=== PATIENT | female | born 1945 | race Caucasian/White ===

== ENCOUNTER 2016-10-10 07:42 | Observation (INO) | payer MEDICARE ==
[~2016-10-10] VITALS: Ht 166.4 cm; Wt 90.3 kg
[~2016-10-10 07:42] MED LIST: AC325T PO; ACDPT PO; ACET-2151 PO; ACET650T52 PO; ANTI1CAP3 PO; APAP PO; ASCO100076 PO; C250T PO; CALC-250 PO; CALC-80 PO; DCS100C PO; DEXL60CA PO; DICL75TA2 PO; DILT300C PO; DOCO300C3 PO; DULO60CA58 PO; DXZS2T PO; FISH1CAP15 PO; GBPN300C PO; GLUC-113 PO; GLUC-96 PO; HAIR SKIN PO; HELIDAC PO; HYDR-3583 PO; HYDR-3714 PO; HYDR1TAB66 PO; HYDROCO PO; LCT30U PO; LEVO125T6 PO; LEVO175T3 PO; LORA-877 PO; LORA1TAB5 PO; LOSA100T7 PO; LSRT50T PO; LVT.025T PO; MECL12.5 PO; MECL25TA56 PO; MELA1TAB11 PO; MOVE FREE ULTRA PO; MULT-608 PO; OMEG-11 PO; OMG1KC PO; OXYM30SP NS; OXYM30SP NSEACH; PNT40TEC PO; POTA20TA7 PO; TORS20TA2 PO; UBID1CAP51 PO; UBID200C PO; VIT100TA2 PO; VIT1TABL57 PO; VITA1TAB30 PO; [UNRECOGNIZED DRUG - CODE]; [UNRECOGNIZED DRUG - CODE] NS; [UNRECOGNIZED DRUG - OTHER] PO
[2016-10-10] MEDS ORDERED: morphine INJ 10 MG/ML 1ML (SYR OR VIAL) IV STA (08:03)
--- NOTE | 2016-10-10 08:03 | ED Chest Pain ---
General Stated Complaint: SOB, CP Source: patient Exam Limitations: no limitations History of Present Illness Time seen by provider: 07:54 Initial Comments Patient brought to the ER by family with complaint of remittent acute chest pain since Tuesday worse on exertion. 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 She has no diaphoresis or nausea and vomiting. She does have a history of hypothyroidism secondary to surgery. She also has high blood pressure which she treats with losartan and torsemide. She states she did take her meds this morning. She also has rheumatoid arthritis for which she uses opiates and NSAIDs however she's not had the NSAIDs for some time because she ran out. No primary family history. She has never had a heart attack. She states she did flunk a stress test with her doctor but because they were more worried about her thyroid she did not have this worked up further and has never had a catheter or seen a crane hoist or lift operator yet. Allergies and Home Medications Allergies Coded Allergies: Penicillins (Verified Allergy, Unknown, 07/05/11) diphenhydramine HCl (Verified Allergy, Unknown, 05/15/14) Home Medications Acetaminophen 650 Mg Tablet.sa, 650 MG PO BID, (Reported) Antiox #11/Om3/Dha/Epa/Lut/Carlos 1 Each Capsule, 1 CAP PO DAILY, (Reported) Ascorbic Acid 1,000 Mg Tablet, 1,000 MG PO DAILY, (Reported) Calcium Carbonate/Vitamin D3 1 Each Tablet, 1 TAB PO DAILY, (Reported) Calcium Carbonate/Vitamin D3 1 Each Tablet, 5,000 UNIT PO UD, (Reported) TAKE ONCE EVERY OTHER WEEK Dexlansoprazole 60 Mg Mulugeta.bp, 60 MG PO DAILY, #30 Prescribed by: TJ YARBROUGH on 02/21/15 1225 Diclofenac Sodium 75 Mg Tablet., 75 MG PO BID, (Reported) Diltiazem Hcl 300 Mg Cap.sr.24h, 300 MG PO HS, (Reported) Docusate Sodium 100 Mg Capsule, 200 MG PO HS, (Reported) TAKES 2 (100MG) CAPSULES Doxazosin Mesylate 2 Mg Tablet, 2 MG PO DAILY, (Reported) Duloxetine HCl 60 Mg Capsule., 60 MG PO DAILY, (Reported) Gabapentin 300 Mg Cap, 600 MG PO TID, (Reported) TAKES 2 (300MG) CAPSULES Hydrocodone Bit/Acetaminophen 1 Tab Tablet, 1 TAB PO Q4H PRN for PAIN, (Reported ) Levothyroxine Sodium 175 Mcg Tablet, 175 MCG PO DAILY, (Reported) Loratadine/Pseudoephedrine 1 Tab.sr .24 H Tab.sr.24h, 1 TAB PO DAILY PRN for CONGESTION, (Reported) Losartan Potassium 100 Mg Tablet, 100 MG PO DAILY, (Reported) Meclizine Hcl 12.5 Mg Tablet, 12.5 MG PO BID, (Reported) Multivitamins 1 Tab Tablet, 1 TAB PO DAILY, (Reported) Oxymetazoline Hcl 15 Ml Harrison, 1 SPRAY NS HS, (Reported) Pantoprazole Sod 40 Mg Tab, 40 MG PO DAILY, (Reported) Potassium Chloride 20 Meq Tab.prt.sr, 20 MEQ PO DAILY, (Reported) Pyridoxine/Melatonin 1 Tab Tablet, 3 MG PO HS, (Reported) Sodium Chloride 59 Ml Mist, 1 SPRAY NA HS, (Reported) Torsemide 20 Mg Tablet, 40 MG PO DAILY, (Reported) TAKES 2 (20MG) TABLETS DAILY Ubidecarenone 200 Mg Capsule, 200 MG PO DAILY, (Reported) [Move Free Ultra] , 1 TAB PO DAILY, (Reported) Review of Systems Constitutional: No chills, No diaphoresis, No fever, malaise EENTM: No Blurred Vision, No Double Vision Respiratory: Denies Cough, SOA With Exertion, SOA at Rest (baseline), Denies Wheezing Cardiovascular: Chest Pain (left pressing ), Denies Edema, Denies Palpitations , Denies Syncope Gastrointestinal: Denies Abdomen Distended, Denies Abdominal Pain Genitourinary: Denies Burning, Denies Discharge Musculoskeletal: back pain (baseline), joint pain (RA) Skin: No pruritus, No rash Past Elhfykj-Lmqtam-Suishh Hx Patient Social History Alcohol Use: Denies Use Recreational Drug Use: No Smoking Status: Never a Smoker Immunizations Up To Date Tetanus Booster (TDap): More than 5yrs Date of Pneumonia Vaccine: Jan 28, 2011 Date of Influenza Vaccine: Feb 27, 2014 Seasonal Allergies Seasonal Allergies: Yes Surgeries HX Surgeries: Yes (COLONOSCOPY) Surgeries: Breast, Gallbladder, Thyroidectomy, Tonsillectomy Respiratory Hx Respiratory Disorders: Yes (WEARS O2 @ NIGHT) Respiratory Disorders: Asthma, Pneumonia, Sleep Apnea Cardiovascular Hx Cardiac Disorders: Yes Cardiac Disorders: High Cholesterol, Hypertension, Irregular Heartbeat Neurological Hx Neurological Disorders: Yes Neurological Disorders: Headaches /Migraines, Neuropathy Reproductive System Hx Reproductive Disorders: No Sexually Transmitted Disease: No HIV/AIDS: No Female Reproductive Disorders: Denies Genitourinary Hx Genitourinary Disorders: Yes (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, R KIDNEY DISEASED ) Gastrointestinal Hx Gastrointestinal Disorders: Yes (H.PYLORI ULCERS) Gastrointestinal Disorders: Gastroesophageal Reflux, Chronic Constipation, Hemorrhoids, Ulcer, Gall Bladder Disease Musculoskeletal Hx Musculoskeletal Disorders: Yes Musculoskeletal Disorders: Degenerate Disk Disease, Arthritis, Rheumatoid Arthritis, Chronic Back Pain Endocrine Hx Endocrine Disorders: Yes (OBESITY) Endocrine Disorders: Hypothyroidsim HEENT HX ENT Disorders: Yes HEENT Disorders: Cataract Loss of Vision: Denies Hearing Impairment: Denies Cancer Hx Cancer: No Psychosocial Hx Psychiatric Problems: No Integumentary HX Skin/Integumentary Disorder: No Blood Transfusions Hx Blood Disorders: Yes (ANEMIA) Adverse Reaction to a Blood Tr: No Family Medical History Family Medial History: Arthritis 19 FATHER G8 SISTER Colon cancer 19 MOTHER Diabetes mellitus 19 MOTHER Gastroenteritis G8 BROTHER Headache disorder 19 FATHER Hypercholesterolemia 19 MOTHER G8 BROTHER G8 SISTER Hypertension 19 MOTHER G8 BROTHER G8 SISTER Myocardial infarction 19 MOTHER G8 BROTHER G8 SISTER Neoplasm 19 FATHER Osteoporosis G8 SISTER No Family History of: AIDS Abdominal aortic aneurysm [place]'s disease Alcoholism Alzheimer's disease Aphasia Asthma Cancer of mouth Cardiovascular disease Cataracts Completed stroke Congenital disease Congenital heart disease Coronary thrombosis Cystic fibrosis Deafness or hearing loss Dementia Drug abuse Dysphasia Fibrocystic disease of breast Glaucoma Infertility Kidney disease Not obtainable due to adoption Parkinson's disease Prostate cancer Psychosocial problem Respiratory disorder Seizure disorder Severe allergy Thyroid disease Tuberculosis Visual disorder Physical Exam Vital Signs Vital Sign - Last 12Hours 10/10/16 07:45 Temp 98.1 Pulse 108 Resp 20 B/P (MAP) 177/127 Pulse Ox 96 O2 Delivery Nasal Cannula O2 Flow Rate 4.0 Capillary Refill : General Appearance: WD/WN, Anxious, Obese HEENT: PERRL/EOMI, Normal ENT Inspection, Pharynx Normal Neck: Full Range of Motion, Normal Inspection, Supple, No JVD Respiratory: Chest Non Tender, Lungs Clear, Normal Breath Sounds, Decreased Breath Sounds (bilateerally) Cardiovascular: Regular Rate, Rhythm, No JVD, No Murmur, Normal Peripheral Pulses, Other (trace edema) Gastrointestinal: Normal Bowel Sounds, Non Tender, Soft Extremity: Normal Capillary Refill, Normal Inspection, No Calf Tenderness Neurologic/Psychiatric: Alert, Oriented x3, No Motor/Sensory Deficits, Normal Mood/Affect Skin: Normal Color, Warm/Dry Lymphatic: No Adenopathy Progress/Results/Core Measures Results/Orders Lab Results Laboratory Tests Test 10/10/16 07:54 Range/Units White Blood Count 11.9 H 4.3-11.0 10^3/uL Red Blood Count 4.34 L 4.35-5.85 10^6/uL Hemoglobin 11.8 11.5-16.0 G/DL Hematocrit 37 35-52 % Mean Corpuscular Volume 86 80-99 FL Mean Corpuscular Hemoglobin 27 25-34 PG Mean Corpuscular Hemoglobin Concent 32 32-36 G/DL Red Cell Distribution Width 14.0 10.0-14.5 % Platelet Count 295 130-400 10^3/uL Mean Platelet Volume 11.1 H 7.4-10.4 FL Neutrophils (%) (Auto) 75 42-75 % Lymphocytes (%) (Auto) 15 12-44 % Monocytes (%) (Auto) 8 0-12 % Eosinophils (%) (Auto) 1 0-10 % Basophils (%) (Auto) 0 0-10 % Neutrophils # (Auto) 8.9 H 1.8-7.8 X 10^3 Lymphocytes # (Auto) 1.8 1.0-4.0 X 10^3 Monocytes # (Auto) 0.9 0.0-1.0 X 10^3 Eosinophils # (Auto) 0.2 0.0-0.3 10^3/uL Basophils # (Auto) 0.1 0.0-0.1 10^3/uL Prothrombin Time 13.9 12.2-14.7 SEC INR Comment 1.1 0.8-1.4 Activated Partial Thromboplast Time 44 H 24-35 SEC Sodium Level 144 135-145 MMOL/L Potassium Level 3.4 L 3.6-5.0 MMOL/L Chloride Level 112 H 98-107 MMOL/L Carbon Dioxide Level 19 L 21-32 MMOL/L Anion Gap 13 5-14 MMOL/L Blood Urea Nitrogen 7 7-18 MG/DL Creatinine 0.69 0.60-1.30 MG/DL Estimat Glomerular Filtration Rate > 60 BUN/Creatinine Ratio 10 Glucose Level 114 H 70-105 MG/DL Calcium Level 9.0 8.5-10.1 MG/DL Magnesium Level 2.0 1.8-2.4 MG/DL Total Bilirubin 0.5 0.1-1.0 MG/DL Aspartate Amino Transf (AST/SGOT) 13 5-34 U/L Alanine Aminotransferase (ALT/SGPT) 10 0-55 U/L Alkaline Phosphatase 60 40-136 U/L Myoglobin 34.7 10.0-92.0 NG/ML Troponin I < 0.30 <0.30 NG/ML B-Type Natriuretic Peptide 467.7 H <100.0 PG/ML Total Protein 6.7 6.4-8.2 G/DL Albumin 3.6 3.2-4.5 G/DL My Orders Orders - CANDY GRANADOS Cbc With Automated Diff (10/10/16 08:03) Magnesium (10/10/16 08:03) Chest 1 View, Ap/Pa Only (10/10/16 08:03) Ekg Tracing (10/10/16 08:03) Cardiac Profile 1 (10/10/16 08:03) Comprehensive Metabolic Panel (10/10/16 08:03) Myoglobin Serum (10/10/16 08:03) Protime With Inr (10/10/16 08:03) Partial Thromboplastin Time (10/10/16 08:03) O2 (10/10/16 08:03) Monitor-Rhythm Ecg Trace Only (10/10/16 08:03) Lipid Panel (10/11/16 06:00) Aspirin Tablet (Aspirin Tablet) (10/10/16 08:15) Rx-Nitroglycerin Sl Tabs (Rx-Nitrostat S (10/10/16 08:15) Morphine Injection (Morphine Injection (10/10/16 08:03) Saline Lock/Iv-Start (10/10/16 08:03) Ondansetron Injection (Zofran Injectio (10/10/16 08:15) BNP (10/10/16 08:24) Morphine Injection (Morphine Injection (10/10/16 09:30) Medications Given in ED Current Medications Medications Dose Ordered Sig/Valery Route Start Time Stop Time Status Last Admin Dose Admin Aspirin 325 mg ONCE ONCE PO 10/10/16 08:15 10/10/16 08:16 DC 10/10/16 08:20 325 MG Nitroglycerin 0.4 mg PRN PRN SL 10/10/16 08:15 10/10/16 08:15 0.4 MG Ondansetron HCl 4 mg ONCE ONCE IVP 10/10/16 08:15 10/10/16 08:16 DC 10/10/16 08:20 4 MG Vital Signs/I&O Vital Sign - Last 12Hours 10/10/16 10/10/16 10/10/16 07:45 07:45 07:50 Temp 98.1 Pulse 108 Resp 20 B/P (MAP) 177/127 Pulse Ox 96 96 O2 Delivery Nasal Cannula Nasal Cannula Nasal Cannula O2 Flow Rate 4.0 4.0 4.00 Progress Note : Time: 08:21 Progress Note Patient presents with acute chest pain concerning for ACS versus less likely PE. She is over 51 and has a heart rate above 100 and pulse ox on room air was about 95% despite her use of oxygen at home. No history of DVTs, hemoptysis or recent surgeries, OCPs. Likely a sedentary lifestyle. Diagnostic Imaging Diagonstic Imaging: Xray Plain Films/CT/US/NM/MRI: chest Comments Underpenetration with few bilateral patchy infiltrates appearance. Cardiac megaly. [place]IA [place], [place] NAME: TABITHA MOROCHO [facility] REC#: [id number] PT STATUS: REG ER : 1945 PHYSICIAN: CANDY GRANADOS MD ADMIT DATE: 10/10/16/ER Draft Date of Exam:10/10/16 CHEST 1 VIEW, AP/PA ONLY EXAMINATION: Chest radiograph, portable AP view. DATE: October 10, 2016 at 08:50 hours. INDICATION: 71-year-old female, chest pain for 3 days. Shortness of breath. COMPARISON: May 15, 2014. FINDINGS: Stable overall appearance of the cardiomediastinal silhouette. There is no identified pneumothorax. There is no large pleural effusion. There are bilateral interstitial and alveolar opacities with areas of alveolar consolidation most notable in the perihilar regions and lung bases. Lung volumes are somewhat low. IMPRESSION: Low lung volumes with bilateral interstitial and alveolar opacities with alveolar opacities in the perihilar regions and lung bases. Pulmonary edema would be included in the differential diagnosis. Dictated on workstation # [id number] Dict: 10/10/16817 Trans: 10/10/16820 [facility] [id number] Interpreted by: ANDERSON MERCHANT MD Electronically signed by: Reviewed: Reviewed by Me Consults Consults : Consulting Physician: Yony ROMERO MD Consults Notes recs echo, lovenox and he will see her. Departure Communication Time/Spoke to Admitting Phy: 09:30 Communication Orrender; Consult Cards and get an Echo. OBS Impression Impression: Primary Impression: Chest pain Qualified Codes: R07.9 - Chest pain, unspecified Disposition: ADMITTED INPATIENT Condition: Stable Decision to Admit Reason: Admit from ER (General) Decision to Admit/Date: October 10, 2016 Time/Decision to Admit Time: 09:39 Departure-Patient Inst. Referrals: SUNIL CHOW MD (PCP) Primary Care Physician Copy Copies To 1: SUNIL CHOW MD, TITUS J October 10, 2016 08:02
[2016-10-10 08:10] LABS: BASOPHILS # (AUTO) 0.1 10^3/uL (0.0-0.1); BASOPHILS % (AUTO) 0 % (0-10); EOSINOPHILS # (AUTO) 0.2 10^3/uL (0.0-0.3); EOSINOPHILS % (AUTO) 1 % (0-10); LYMPHOCYTES # (AUTO) 1.8 X 10^3 (1.0-4.0); LYMPHOCYTES % (AUTO) 15 % (12-44); MEAN CORPUSCULAR HEMOGLOBIN 27 PG (25-34); MEAN CORPUSCULAR HGB CONC 32 G/DL (32-36); MEAN CORPUSCULAR VOLUME 86 FL (80-99); MEAN PLATELET VOLUME 11.1 FL (7.4-10.4); MONOCYTES # (AUTO) 0.9 X 10^3 (0.0-1.0); MONOCYTES % (AUTO) 8 % (0-12); NEUTROPHILS # (AUTO) 8.9 X 10^3 (1.8-7.8); NEUTROPHILS % (AUTO) 75 % (42-75); PLATELET COUNT 295 10^3/uL (130-400); RED BLOOD COUNT 4.34 10^6/uL (4.35-5.85); WHITE BLOOD COUNT 11.9 10^3/uL (4.3-11.0)
[2016-10-10] MEDS ORDERED: ASPIRIN 325 MG (5 GR) TABLET PO ONE (08:15)
[2016-10-10] MEDS ORDERED: ONDANSETRON 4 MG/2 ML (SDV) Z0FRAN IVP ONE (08:15)
[2016-10-10] MEDS ORDERED: RX-NITROGLYCERIN 0.4 MG TAB BTL 25'S SL PRN (08:15)
[2016-10-10 08:18] LABS: INR 1.1 (0.8-1.4); PROTHROMBIN TIME PATIENT 13.9 SEC (12.2-14.7)
--- NOTE | 2016-10-10 08:21 | Diagnostic Imaging Report ---
EXAMINATION: Chest radiograph, portable AP view. DATE: October 10, 2016 at 08:50 hours. INDICATION: 71-year-old female, chest pain for 3 days. Shortness of breath. COMPARISON: May 15, 2014. FINDINGS: Stable overall appearance of the cardiomediastinal silhouette. There is no identified pneumothorax. There is no large pleural effusion. There are bilateral interstitial and alveolar opacities with areas of alveolar consolidation most notable in the perihilar regions and lung bases. Lung volumes are somewhat low. IMPRESSION: Low lung volumes with bilateral interstitial and alveolar opacities with alveolar opacities in the perihilar regions and lung bases. Pulmonary edema would be included in the differential diagnosis. Dictated by: Dictated on workstation # [id number]
[2016-10-10 08:26] LABS: ALANINE AMINOTRANSFERASE 10 U/L (0-55); ALBUMIN 3.6 G/DL (3.2-4.5); ANION GAP 13 MMOL/L (5-14); ASPARTATE AMINO TRANSFERASE 13 U/L (5-34); BILIRUBIN,TOTAL 0.5 MG/DL (0.1-1.0); BLOOD UREA NITROGEN 7 MG/DL (7-18); BUN/CREATININE RATIO 10; CARBON DIOXIDE 19 MMOL/L (21-32); CHLORIDE 112 MMOL/L (98-107); CREATININE SERUM 0.69 MG/DL (0.60-1.30); GFR ESTIMATED > 60; GLUCOSE 114 MG/DL (70-105); POTASSIUM 3.4 MMOL/L (3.6-5.0); SODIUM 144 MMOL/L (135-145); TOTAL PROTEIN 6.7 G/DL (6.4-8.2)
[2016-10-10 08:33] LABS: MYOGLOBIN SERUM 34.7 NG/ML (10.0-92.0)
[2016-10-10] MEDS ORDERED: morphine INJ 4 MG/ML 1 ML (VIAL/SYRINGE) IVP PRN (09:30)
[2016-10-10] MEDS ORDERED: morphine INJ 10 MG/ML 1ML (SYR OR VIAL) IVP ONE (09:45)
[2016-10-10 10:55] VITALS: BP 170/90
[2016-10-10] MEDS: ENOXAPARIN 100 MG/1 ML (LOVENOX) SYR SC SCH ×2 (11:17→22:50)
--- NOTE | 2016-10-10 11:18 | Consultation-Cardiology ---
HPI-Cardiology Cardiology Consultation: Date of Consultation 10/10/16 Date of Admission Attending Physician Carol Bee MD Admitting Physician Carol Bee MD Consulting Physician Yony CHAU MD HPI: Chief Complaint: chest pain this is a 71 year old lady with history of copd on oxygen at home, diabetes but no known cardiac history. she presents with off an on central chest pain x 3 days. no radiation. worse intensity 6/10. associated with worsening of shortness of breath. no exacerbating or relieving factors identified.no chest pain on my interview. Review of Systems-Cardiology Review of Systems Constitutional: No As described under HPI, No no symptoms reported, No chills, No fever, No lightheadedness, No malaise, No tiredness, No weight loss, No weight gain, No other Eyes: No As described under HPI, No no symptoms reported, No blindness, No blurred vision, No contact lenses, No drainage, No decreased acuity, No foreign body sensation, No glasses, No inflammation, No pain, No photophobia, No previous injury, No shadows, No tunnel vision, No other, No vision change Ears/Nose/Throat: No As described under HPI, No no symptoms reported, No chronic hearing loss, No epistaxis, No ear discharge, No ear pain, No loose teeth, No mouth pain, No mouth swelling, No nasal drainage, No nose pain, No recent hearing loss, No throat pain, No throat swelling, No ulcerations, No other Respiratory: shortness of breath Cardiovascular: chest pain Gastrointestinal: No no symptoms reported, No As described under HPI, No abdomen distended, No abdominal pain, No blood streaked bowels, No constipation , No diarrhea, No difficulty swallowing, No nausea, No poor appetite, No poor fluid intake, No rectal bleeding, No vomiting, No other, No nausea/vomiting/ diarrhea, No stool coloration changes Genitourinary: No no symptoms reported, No As described under HPI, No burning, No dysuria, No discharge, No frequency, No flank pain, No hematuria, No incontinence, No pain, No urgency, No other, No urine frequency changes, No urine coloration changes Musculoskeletal: No no symptoms reported, No As describe under HPI, No back pain, No gout, No joint pain, No joint swelling, No muscle pain, No muscle stiffness, No neck pain, No other Skin: No no symptoms reported, No As described under HPI, No change in color, No change in hair/nails, No dryness, No lesions, No lumps, No rash, No other, No skin related problems, No ulcerations, No rash on exposed areas, No ulcerations on exposed areas Psychiatric/Neurological: No As described under HPI, No anxiety, No depression , No emotional problems, No focal weakness, No headache, No no symptoms reported , No numbness, No other, No pre-existing deficit, No seizure, No syncope, No tingling, No tremors, No weakness SWC-Tbjrth-Imtuuj Hx Patient Social History Alcohol Use: Past History Recreational Drug Use: No Smoking Status: Never a Smoker 2nd Hand Smoke Exposure: No Recent Foreign Travel: No Recent Infectious Disease Expo: No Hospitalization with Isolation: Denies Physical Abuse Screen: No Sexual Abuse: No Immunizations Up To Date Tetanus Booster (TDap): More than 5yrs Date of Pneumonia Vaccine: Jan 28, 2011 Date of Influenza Vaccine: Feb 27, 2014 Past Medical History PMH As described under Assessment. Family Medical History Family History: Arthritis 19 FATHER G8 SISTER Colon cancer 19 MOTHER Diabetes mellitus 19 MOTHER Gastroenteritis G8 BROTHER Headache disorder 19 FATHER Hypercholesterolemia 19 MOTHER G8 BROTHER G8 SISTER Hypertension 19 MOTHER G8 BROTHER G8 SISTER Myocardial infarction 19 MOTHER G8 BROTHER G8 SISTER Neoplasm 19 FATHER Osteoporosis G8 SISTER No Family History of: AIDS Abdominal aortic aneurysm Agustin's disease Alcoholism Alzheimer's disease Aphasia Asthma Cancer of mouth Cardiovascular disease Cataracts Completed stroke Congenital disease Congenital heart disease Coronary thrombosis Cystic fibrosis Deafness or hearing loss Dementia Drug abuse Dysphasia Fibrocystic disease of breast Glaucoma Infertility Kidney disease Not obtainable due to adoption Parkinson's disease Prostate cancer Psychosocial problem Respiratory disorder Seizure disorder Severe allergy Thyroid disease Tuberculosis Visual disorder Allergies and Home Medications Allergies Coded Allergies: amoxicillin (Verified Allergy, Mild, 10/10/16) Penicillins (Verified Allergy, Unknown, 07/05/11) diphenhydramine HCl (Verified Allergy, Unknown, 05/15/14) Home Medications Acetaminophen 650 Mg Tablet.sa, 650 MG PO BID, (Reported) Antiox #11/Om3/Dha/Epa/Lut/Carlos 1 Each Capsule, 1 CAP PO DAILY, (Reported) Calcium Carbonate/Vitamin D3 1 Each Tablet, 1 TAB PO DAILY, (Reported) Calcium Carbonate/Vitamin D3 1 Each Tablet, 5,000 UNIT PO UD, (Reported) TAKE ONCE EVERY OTHER WEEK Cyanocobalamin (Vitamin B-12) 1,000 Mcg Tablet, 1,000 MCG IM/IV ONCE, (Reported) Diclofenac Sodium 75 Mg Tablet.dr, 75 MG PO BID, (Reported) Diclofenac Sodium 100 Gm Gel..gram., 100 GM TP for PAIN-MILD, (Reported) Diltiazem Hcl 300 Mg Cap.sr.24h, 300 MG PO HS, (Reported) Doxazosin Mesylate 2 Mg Tablet, 2 MG PO DAILY, (Reported) Duloxetine HCl 60 Mg Capsule.dr, 60 MG PO DAILY, (Reported) Gabapentin 400 Mg Capsule, 400 MG PO TID, (Reported) Hydrocodone Bit/Acetaminophen 1 Tab Tablet, 1 TAB PO Q4H PRN for PAIN, (Reported ) Levothyroxine Sodium 175 Mcg Tablet, 175 MCG PO DAILY, (Reported) Loratadine/Pseudoephedrine 1 Tab.sr .24 H Tab.sr.24h, 1 TAB PO DAILY PRN for CONGESTION, (Reported) Losartan Potassium 100 Mg Tablet, 100 MG PO DAILY, (Reported) Meclizine Hcl 12.5 Mg Tablet, 12.5 MG PO BID, (Reported) Potassium Chloride 20 Meq Tab.prt.sr, 20 MEQ PO DAILY, (Reported) Prasterone (Dhea)/Calcium Carb 1 Each Tablet, 1 EACH PO DAILY, (Reported) Pyridoxine/Melatonin 1 Tab Tablet, 3 MG PO HS, (Reported) Sodium Chloride 59 Ml Mist, 1 SPRAY NA HS, (Reported) Torsemide 20 Mg Tablet, 40 MG PO DAILY, (Reported) TAKES 2 (20MG) TABLETS DAILY Ubidecarenone 200 Mg Capsule, 100 MG PO DAILY, (Reported) [lactulose] , BID, (Reported) Physical Exam-Cardiology Physical Exam Vital Signs/I&O Vital Sign - Last 12Hours 10/10/16 10/10/16 10/10/16 10/10/16 07:45 07:45 07:50 10:11 Temp 98.1 98.1 Pulse 108 80 Resp 20 20 B/P (MAP) 177/127 Pulse Ox 96 96 96 O2 Delivery Nasal Cannula Nasal Cannula Nasal Cannula O2 Flow Rate 4.0 4.0 4.00 4.00 10/10/16 10/10/16 10/10/16 10/10/16 10:17 10:55 12:13 13:38 Temp 95.9 98.7 Pulse 89 76 80 Resp 20 20 B/P (MAP) 170/90 158/90 Pulse Ox 95 95 97 O2 Flow Rate 4.00 5.00 5.00 Capillary Refill : Less Than 3 Seconds Constitutional: No appears stated age, No AAO x 3, No apparent distress, No PERRL, No well-developed, No well-nourished, No other HEENT: No PERRL, No normal ENT inspection, No TMs normal, No pharynx normal, No scleral icterus (R), No scleral icterus (L), No pale conjunctivae (R), No pale conjunctivae (L), No photophobia, No TM abnormal (R), No TM abnormal (L), No pharyngeal erythema, No tonsillar exudate, No other, No discharge, No EOMI, No hearing is well preserved, No hard of hearing, No oral hygience is good, No ulceration, No xanthelasmas are seen Neck: No non-tender, No full range of motion, No supple, No normal inspection, No carotid bruit, No limited range of motion, No lymphadenopathy (R), No lymphadenopathy (L), No tender lateral, No tender midline, No thyromegaly, No other, No carotid pulses are 2 + bilaterally, No with good upstrokes Respiratory: chest expansion is symmetric, chest is bilaterally symmetric, lungs clear to percussion, lungs clear to auscultation Cardiovascular: regular rate-rhythm, S1 and S2 Gastrointestinal: No tender, No soft, No round, No distended, No pulsatile mass , No organomegaly, No guarding, No rebound, No tenderness, No hernia, No mass, No audible bowel sounds, No abnormal bowel sounds, No abdominal bruits, No spleenomegaly, No other Rectal: deferred Extremities: No clubbing, No cyanosis, No significant edema Neurologic/Psychiatric: alert, oriented x 3, power is 5/5 both on sides Skin: No rash, No ulcerations Data Review Labs Laboratory Tests 10/10/16 07:54: White Blood Count 11.9H, Red Blood Count 4.34L, Hemoglobin 11.8, Hematocrit 37, Mean Corpuscular Volume 86, Mean Corpuscular Hemoglobin 27, Mean Corpuscular Hemoglobin Concent 32, Red Cell Distribution Width 14.0, Platelet Count 295, Mean Platelet Volume 11.1H, Neutrophils (%) (Auto) 75, Lymphocytes (%) (Auto) 15 , Monocytes (%) (Auto) 8, Eosinophils (%) (Auto) 1, Basophils (%) (Auto) 0, Neutrophils # (Auto) 8.9H, Lymphocytes # (Auto) 1.8, Monocytes # (Auto) 0.9, Eosinophils # (Auto) 0.2, Basophils # (Auto) 0.1, Prothrombin Time 13.9, INR Comment 1.1, Activated Partial Thromboplast Time 44H, D-Dimer 1.28H, Sodium Level 144, Potassium Level 3.4L, Chloride Level 112H, Carbon Dioxide Level 19L, Anion Gap 13, Blood Urea Nitrogen 7, Creatinine 0.69, Estimat Glomerular Filtration Rate > 60, BUN/Creatinine Ratio 10, Glucose Level 114H, Calcium Level 9.0, Magnesium Level 2.0, Total Bilirubin 0.5, Aspartate Amino Transf (AST /SGOT) 13, Alanine Aminotransferase (ALT/SGPT) 10, Alkaline Phosphatase 60, Myoglobin 34.7, Troponin I < 0.30, B-Type Natriuretic Peptide 467.7H, Total Protein 6.7, Albumin 3.6 10/10/16 12:15: Troponin I < 0.30 ECG Impression ECG Initial ECG Rhythm: Normal Sinus Initial ECG Impression: Nonspecific Changes A/P-Cardiology Assessment/Admission Diagnosis shortness of breath, copd, chest pain, diabetes Plan COPD- defer to primary team. shortness of breath- not in CHF on exam. mild elevation of BNP. could be secondary to copd. request echo. chest pain- serial troponin. ekg does not show any ST-T waves changes. aspirin, enoxaparin. if serial trop negative, will need nuclear stress testing- can be done as outpatient. Thank you for your consultation. Please call me if you have any questions. Anca Chau MD, FACP, FACC, FSCAI, FHRS, CCDS Interventional Cardiology Cardiac Electrophysiology Vascular Medicine and Endovascular Interventions Clinical Quality Measures AMI/AHF: ASA po Prior to arrival: No DVT/VTE Risk/Contraindication: Risk Factor Score Per Nursin RFS Level Per Nursing on Admit: 4+=Very High Yony CHAU MD October 10, 2016 11:18 am
[2016-10-10 12:13] VITALS: BP 158/90
[2016-10-10] MEDS: ASPIRIN E.C. 81 MG (ECOTRIN) TAB PO SCH (12:41)
[2016-10-10] MEDS: LOSARTAN 50 MG (COZAAR) TAB PO SCH (12:55)
[2016-10-10] MEDS ORDERED: CYAN10006 IM/IV (13:28)
[2016-10-10] MEDS ORDERED: DICL100G18 TOP (13:28)
[2016-10-10] MEDS ORDERED: lactulose (13:28)
[2016-10-10] MEDS ORDERED: GABA-490 PO (13:28)
[2016-10-10] MEDS ORDERED: PRAS1TAB2 PO (13:28)
[2016-10-10 16:13] VITALS: BP 134/70
[2016-10-10 19:49] VITALS: BP 165/94
[2016-10-11] VITALS: BP 160/94
[2016-10-11 04:00] VITALS: BP 151/94
[2016-10-11 05:26] LABS: BASOPHILS % (AUTO) 0 % (0-10); EOSINOPHILS # (AUTO) 0.3 10^3/uL (0.0-0.3); EOSINOPHILS % (AUTO) 3 % (0-10); LYMPHOCYTES # (AUTO) 1.6 X 10^3 (1.0-4.0); LYMPHOCYTES % (AUTO) 21 % (12-44); MEAN CORPUSCULAR HEMOGLOBIN 27 PG (25-34); MEAN CORPUSCULAR HGB CONC 31 G/DL (32-36); MEAN CORPUSCULAR VOLUME 87 FL (80-99); MEAN PLATELET VOLUME 11.1 FL (7.4-10.4); MONOCYTES # (AUTO) 0.5 X 10^3 (0.0-1.0); MONOCYTES % (AUTO) 7 % (0-12); NEUTROPHILS % (AUTO) 68 % (42-75); PLATELET COUNT 256 10^3/uL (130-400); RED CELL DISTRIBUTION WIDTH 14.1 % (10.0-14.5); WHITE BLOOD COUNT 7.4 10^3/uL (4.3-11.0)
[2016-10-11 05:48] LABS: CHOLESTEROL 168 MG/DL (< 200); DIRECT LDL 116 MG/DL (1-129); TRIGLYCERIDES 89 MG/DL (<150); VLDL CHOLESTEROL 18 MG/DL (5-40)
--- NOTE | 2016-10-11 07:36 | Cardiology Progress Note ---
Cardiology SOAP Progress Note Subjective: no chest pain Objective: I&O/Vital Signs Vital Sign - Last 12Hours 10/10/16 10/10/16 10/10/16 10/11/16 19:49 21:00 21:28 00:00 Temp 96.7 98.6 Pulse 72 75 Resp 22 24 B/P (MAP) 165/94 160/94 Pulse Ox 96 96 O2 Flow Rate 5.00 5.00 5.00 5.00 10/11/16 10/11/16 01:00 04:00 Temp 97.9 Pulse 71 84 Resp 20 B/P (MAP) 151/94 Pulse Ox 98 O2 Flow Rate 5.00 Intake and Output 10/11/16 00:00 Intake Total 920 ml Output Total 500 ml Balance 420 ml Weight (Pounds): 199 Weight (Ounces): 0.0 Weight (Calculated Kilograms): [id number] Constitutional: No appears stated age, No AAO x 3, No apparent distress, No PERRL, No well-developed, No well-nourished, No other Respiratory: chest expansion is symmetric, chest is bilaterally symmetric, lungs clear to percussion, lungs clear to auscultation Cardiovascular: regular rate-rhythm, S1 and S2 Gastrointestional: No tender, No soft, No round, No distended, No pulsatile mass, No organomegaly, No guarding, No rebound, No tenderness, No hernia, No mass, No audible bowel sounds, No abnormal bowel sounds, No abdominal bruits, No spleenomegaly, No other Extremities: No clubbing, No cyanosis, No significant edema Neurologic/Psychiatric: alert, oriented x 3, power is 5/5 both on sides Skin: No rash, No ulcerations Results/Procedures: Labs Laboratory Tests 10/10/16 07:54: White Blood Count 11.9H, Red Blood Count 4.34L, Hemoglobin 11.8, Hematocrit 37, Mean Corpuscular Volume 86, Mean Corpuscular Hemoglobin 27, Mean Corpuscular Hemoglobin Concent 32, Red Cell Distribution Width 14.0, Platelet Count 295, Mean Platelet Volume 11.1H, Neutrophils (%) (Auto) 75, Lymphocytes (%) (Auto) 15 , Monocytes (%) (Auto) 8, Eosinophils (%) (Auto) 1, Basophils (%) (Auto) 0, Neutrophils # (Auto) 8.9H, Lymphocytes # (Auto) 1.8, Monocytes # (Auto) 0.9, Eosinophils # (Auto) 0.2, Basophils # (Auto) 0.1, Prothrombin Time 13.9, INR Comment 1.1, Activated Partial Thromboplast Time 44H, D-Dimer 1.28H, Sodium Level 144, Potassium Level 3.4L, Chloride Level 112H, Carbon Dioxide Level 19L, Anion Gap 13, Blood Urea Nitrogen 7, Creatinine 0.69, Estimat Glomerular Filtration Rate > 60, BUN/Creatinine Ratio 10, Glucose Level 114H, Calcium Level 9.0, Magnesium Level 2.0, Total Bilirubin 0.5, Aspartate Amino Transf (AST /SGOT) 13, Alanine Aminotransferase (ALT/SGPT) 10, Alkaline Phosphatase 60, Myoglobin 34.7, Troponin I < 0.30, B-Type Natriuretic Peptide 467.7H, Total Protein 6.7, Albumin 3.6 10/10/16 12:15: Troponin I < 0.30 10/10/16 16:05: Troponin I < 0.30 10/11/16 05:10: White Blood Count 7.4, Red Blood Count 3.90L, Hemoglobin 10.6L, Hematocrit 34L, Mean Corpuscular Volume 87, Mean Corpuscular Hemoglobin 27, Mean Corpuscular Hemoglobin Concent 31L, Red Cell Distribution Width 14.1, Platelet Count 256, Mean Platelet Volume 11.1H, Neutrophils (%) (Auto) 68, Lymphocytes (%) (Auto) 21 , Monocytes (%) (Auto) 7, Eosinophils (%) (Auto) 3, Basophils (%) (Auto) 0, Neutrophils # (Auto) 5.0, Lymphocytes # (Auto) 1.6, Monocytes # (Auto) 0.5, Eosinophils # (Auto) 0.3, Basophils # (Auto) 0.0, Troponin I < 0.30, Triglycerides Level 89, Cholesterol Level 168, LDL Cholesterol Direct 116, VLDL Cholesterol 18, HDL Cholesterol 36L A/P: Assessment/Dx: shortness of breath, copd, chest pain, diabetes Plan: COPD- defer to primary team. shortness of breath- not in CHF on exam. mild elevation of BNP. could be secondary to copd. request echo. chest pain- serial troponin. ekg does not show any ST-T waves changes. aspirin, enoxaparin. serial troponin negative -> ACS ruled out. nuclear stress as outpatient. office information provided. Thank you for your consultation. Please call me if you have any questions. Anca Chau MD, FACP, FACC, FSCAI, FHRS, CCDS Interventional Cardiology Cardiac Electrophysiology Vascular Medicine and Endovascular Interventions Clinical Quality Measures AMI/AHF: ASA po Prior to arrival: Yony Milian MD October 11, 2016 7:36 am
[2016-10-11 07:56] VITALS: BP 143/82
[2016-10-11] MEDS ORDERED: DILT300T9 PO (08:24)
[2016-10-11] MEDS ORDERED: DOCU-143 PO (08:53)
[2016-10-11] MEDS ORDERED: PANT40TA3 PO (08:53)
[2016-10-11] MEDS ORDERED: GLUC-203 PO (08:53)
[2016-10-11] MEDS ORDERED: LEVO175T5 PO (08:53)
[2016-10-11] MEDS ORDERED: CNC1KV IJ (08:53)
[2016-10-11] MEDS ORDERED: LEVO150T6 PO (08:53)
[2016-10-11] MEDS ORDERED: UBID100C44 PO (08:53)
[2016-10-11] MEDS ORDERED: MECL-106 PO (08:53)
[2016-10-11] MEDS: LOSARTAN 50 MG (COZAAR) TAB PO SCH (09:16)
[2016-10-11] MEDS: ASPIRIN E.C. 81 MG (ECOTRIN) TAB PO SCH (09:16)
--- NOTE | 2016-10-11 09:21 | Diagnostic Imaging Report ---
INDICATION: Chest pain and dyspnea. DISCUSSION: Single portable upright view of the chest was obtained, comparison 10/10/2016. Cardiomegaly is again noted. Bilateral mixed interstitial and alveolar opacities are likely stable given differences in technique. Findings could be seen with pulmonary edema or atypical infection. No pleural fluid or pneumothorax. No acute osseous abnormality. IMPRESSION: 1. Cardiomegaly with bilateral pulmonary infiltrates, stable. Findings are suggestive of underlying failure. Dictated by: Dictated on workstation # [id number]
--- NOTE | 2016-10-11 09:33 | Short Stay Summary ---
History of Present Illness History of Present Illness Date of Admission October 10, 2016 at 09:47 Date of Discharge Attending Physician Sunil Bee MD Admitting Physician Sunil Bee MD Consult Yony ROMERO MD Allergies and Home Medications Allergies Coded Allergies: amoxicillin (Verified Allergy, Mild, 10/10/16) Penicillins (Verified Allergy, Unknown, 07/05/11) diphenhydramine HCl (Verified Allergy, Unknown, 05/15/14) Home Medications Antiox #11/Om3/Dha/Epa/Lut/Carlos 1 Each Capsule, 1 CAP PO DAILY, (Reported) Calcium Carbonate/Vitamin D3 1 Each Tablet, 1 TAB PO DAILY, (Reported) Cyanocobalamin 1,000 Mcg/Ml Inj, 1,000 MCG IJ MONTHLY, (Reported) Diclofenac Sodium 100 Gm Gel..gram., 4 GM TOP TID PRN for JOINT PAIN, (Reported) Diltiazem HCl 300 Mg Tab.er.24h, 300 MG PO DAILY, (Reported) Docusate Sodium 100 Mg Capsule, 100 MG PO DAILY, (Reported) Doxazosin Mesylate 2 Mg Tablet, 2 MG PO DAILY, (Reported) Duloxetine HCl 60 Mg Capsule.dr, 60 MG PO DAILY, (Reported) Gabapentin 400 Mg Capsule, 400 MG PO TID, (Reported) Glucosam/Chond/Hyalu/Cf Borate 1 Each Tablet, 1 TAB PO DAILY, (Reported) Hydrocodone Bit/Acetaminophen 1 Tab Tablet, 1 TAB PO BID PRN for PAIN-MODERATE, (Reported) Levothyroxine Sodium 175 Mcg Tablet, 175 MCG PO, (Reported) Levothyroxine Sodium 150 Mcg Tablet, 150 MCG PO, (Reported) Loratadine/Pseudoephedrine 1 Tab.sr .24 H Tab.sr.24h, 1 TAB PO DAILY, (Reported) Losartan Potassium 100 Mg Tablet, 100 MG PO DAILY, (Reported) LAST FILLED 05-12-16 #60 Meclizine HCl 25 Mg Tablet, 25 MG PO DAILY, (Reported) Pantoprazole Sodium 40 Mg Tablet.dr, 40 MG PO DAILY, (Reported) Potassium Chloride 20 Meq Tab.prt.sr, 20 MEQ PO DAILY, (Reported) Prasterone (Dhea)/Calcium Carb 1 Each Tablet, 50 MG PO DAILY, (Reported) Pyridoxine/Melatonin 1 Tab Tablet, 3 MG PO HS, (Reported) Sodium Chloride 59 Ml Mist, 1 SPRAY NA HS, (Reported) Torsemide 20 Mg Tablet, 40 MG PO DAILY, (Reported) TAKES 2 (20MG) TABLETS DAILY Ubidecarenone 100 Mg Capsule, 100 MG PO DAILY, (Reported) Past Jqpzcev-Hajjjt-Pldivr Hx Patient Social History Alcohol Use: Past History Recreational Drug Use: No Smoking Status: Never a Smoker 2nd Hand Smoke Exposure: No Physical Abuse Screen: No Sexual Abuse: No Recent Foreign Travel: No Contact w/other who traveled: No Recent Hopitalizations: No Recent Infectious Disease Expo: No Immunizations Up To Date Tetanus Booster (TDap): More than 5yrs Date of Pneumonia Vaccine: Jan 28, 2011 Date of Influenza Vaccine: Feb 27, 2014 Seasonal Allergies Seasonal Allergies: Yes Surgeries HX Surgeries: Yes (COLONOSCOPY) Surgeries: Breast, Gallbladder, Thyroidectomy, Tonsillectomy Respiratory Hx Respiratory Disorders: Yes (WEARS O2 @ NIGHT) Cardiovascular Hx Cardiovascular Disorders: Yes Cardiac Disorders: High Cholesterol, Hypertension, Irregular Heartbeat Neurological Hx Neurological Disorders: Yes Neurological Disorders: Headaches /Migraines, Neuropathy Reproductive System Hx Reproductive Disorders: No Sexually Transmitted Disease: No HIV/AIDS: No Female Reproductive Disorders: Denies Genitourinary Hx Genitourinary Disorders: Yes (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, R KIDNEY DISEASED ) Gastrointestinal Hx Gastrointestinal Disorders: Yes (H.PYLORI ULCERS) Gastrointestinal Disorders: Gastroesophageal Reflux, Chronic Constipation, Hemorrhoids, Ulcer, Gall Bladder Disease Musculoskeletal Hx Musculoskeletal Disorders: Yes Musculoskeletal Disorders: Degenerate Disk Disease, Arthritis, Rheumatoid Arthritis, Chronic Back Pain Endocrine Hx Endocrine Disorders: Yes (OBESITY) Endocrine Disorders: Hypothyroidsim HEENT HX ENT Disorders: Yes HEENT Disorders: Cataract Loss of Vision: Denies Hearing Impairment: Denies Cancer Hx Cancer: No Psychosocial Hx Psychiatric Problems: No Integumentary HX Skin/Integumentary Disorder: No Blood Transfusions Hx Blood Disorders: Yes (ANEMIA) Adverse Reaction to a Blood Tr: No Family Medical History Family Hx: Arthritis 19 FATHER G8 SISTER Colon cancer 19 MOTHER Diabetes mellitus 19 MOTHER Gastroenteritis G8 BROTHER Headache disorder 19 FATHER Hypercholesterolemia 19 MOTHER G8 BROTHER G8 SISTER Hypertension 19 MOTHER G8 BROTHER G8 SISTER Myocardial infarction 19 MOTHER G8 BROTHER G8 SISTER Neoplasm 19 FATHER Osteoporosis G8 SISTER No Family History of: AIDS Abdominal aortic aneurysm Agustin's disease Alcoholism Alzheimer's disease Aphasia Asthma Cancer of mouth Cardiovascular disease Cataracts Completed stroke Congenital disease Congenital heart disease Coronary thrombosis Cystic fibrosis Deafness or hearing loss Dementia Drug abuse Dysphasia Fibrocystic disease of breast Glaucoma Infertility Kidney disease Not obtainable due to adoption Parkinson's disease Prostate cancer Psychosocial problem Respiratory disorder Seizure disorder Severe allergy Thyroid disease Tuberculosis Visual disorder Physical Exam Vital Signs Vital Sign - Last 12Hours 10/10/16 07:45 Temp 98.1 Pulse 108 Resp 20 B/P (MAP) 177/127 Pulse Ox 96 O2 Delivery Nasal Cannula O2 Flow Rate 4.0 Capillary Refill : Less Than 3 Seconds Clinical Quality Measures AMI/AHF: ASA po Prior to arrival: No DVT/VTE Risk/Contraindication: Risk Factor Score Per Nursin RFS Level Per Nursing on Admit: 4+=Very High Short Stay Diagnosis Conclusion Labs Laboratory Tests 10/10/16 12:15: Troponin I < 0.30 10/10/16 16:05: Troponin I < 0.30 10/11/16 05:10: Troponin I < 0.30, White Blood Count 7.4, Red Blood Count 3.90L, Hemoglobin 10.6L, Hematocrit 34L, Mean Corpuscular Volume 87, Mean Corpuscular Hemoglobin 27, Mean Corpuscular Hemoglobin Concent 31L, Red Cell Distribution Width 14.1, Platelet Count 256, Mean Platelet Volume 11.1H, Neutrophils (%) (Auto) 68, Lymphocytes (%) (Auto) 21, Monocytes (%) (Auto) 7, Eosinophils (%) (Auto) 3, Basophils (%) (Auto) 0, Neutrophils # (Auto) 5.0, Lymphocytes # (Auto) 1.6, Monocytes # (Auto) 0.5, Eosinophils # (Auto) 0.3, Basophils # (Auto) 0.0, Triglycerides Level 89, Cholesterol Level 168, LDL Cholesterol Direct 116, VLDL Cholesterol 18, HDL Cholesterol 36L SUNIL BEE MD October 11, 2016 09:33
[2016-10-11] MEDS ORDERED: ASPI-983 PO (09:34)
--- NOTE | 2016-10-11 09:37 | Discharge Inst-Complex ---
[facility] Med Rec & Follow Up Appt. New Medications: Aspirin (Aspirin EC) 81 Mg Tablet.dr 81 MG PO DAILY for 90 Days, #90 TAB Continued Medications: Antiox #11/Om3/Dha/Epa/Lut/Carlos (Ocuvite Adult 50+ Softgel) 1 Each Capsule 1 CAP PO DAILY, CAP Calcium Carbonate/Vitamin D3 (Calcium 600 + D Caplet) 1 Each Tablet 1 TAB PO DAILY, TAB Cyanocobalamin (Cyanocobalamin Injection) 1,000 Mcg/Ml Inj 1000 MCG IJ MONTHLY, VIAL Diclofenac Sodium (Voltaren) 100 Gm Gel..gram. 4 GM TOP TID PRN for JOINT PAIN, TUBE Diltiazem HCl (Diltiazem ER) 300 Mg Tab.er.24h 300 MG PO DAILY, TAB Docusate Sodium (Colace) 100 Mg Capsule 100 MG PO DAILY, CAP Doxazosin Mesylate (Cardura) 2 Mg Tablet 2 MG PO DAILY, TAB Duloxetine HCl (Duloxetine HCl) 60 Mg Capsule.dr 60 MG PO DAILY, CAP Gabapentin (Gabapentin) 400 Mg Capsule 400 MG PO TID, CAP Glucosam/Chond/Hyalu/Cf Borate (Move Free Joint Health Tablet) 1 Each Tablet 1 TAB PO DAILY, TAB Hydrocodone Bit/Acetaminophen (Hydrocodone-Apap 5-325 Tab) 1 Tab Tablet 1 TAB PO BID PRN for PAIN-MODERATE, TAB Levothyroxine Sodium (Levothyroxine Sodium) 175 Mcg Tablet 175 MCG PO, TAB Levothyroxine Sodium (Levothyroxine Sodium) 150 Mcg Tablet 150 MCG PO, TAB Loratadine/Pseudoephedrine (Claritin-D 24 Hour Tab Er) 1 Tab.sr .24 H Tab.sr.24h 1 TAB PO DAILY, TAB Losartan Potassium (Losartan Potassium) 100 Mg Tablet 100 MG PO DAILY, TAB LAST FILLED 05-12-16 #60 Meclizine HCl (Meclizine HCl) 25 Mg Tablet 25 MG PO DAILY, TAB Pantoprazole Sodium (Pantoprazole Sodium) 40 Mg Tablet.dr 40 MG PO DAILY, TAB Potassium Chloride (Klor-Con M20) 20 Meq Tab.prt.sr 20 MEQ PO DAILY, TAB Prasterone (Dhea)/Calcium Carb (Dhea 50 mg Tablet) 1 Each Tablet 50 MG PO DAILY, TAB Pyridoxine/Melatonin (Melatonin 3 Mg Tablet) 1 Tab Tablet 3 MG PO HS, TAB Sodium Chloride (Simply Saline) 59 Ml Mist 1 SPRAY NA HS, EA Torsemide (Torsemide) 20 Mg Tablet 40 MG PO DAILY, TAB TAKES 2 (20MG) TABLETS DAILY Ubidecarenone (Co Q-10) 100 Mg Capsule 100 MG PO DAILY, CAP Prescription: Transmitted to Pharmacy Activity, Diet and PDI Resume Normal Activity: Yes Discharge Diet: Low Fat/Low Cholesterol Drink 6-8 Glasses of Fluid/Day: Yes Symptoms to Reoprt to : Pain Increased, Fever Over 101 Degrees F, Pain/ Pressure in Chest, Pain/Pressure in Jaw, Lightheadedness For Problems or Questions: Contact Your Physician, Go to Emergency Room SUNIL CHOW MD October 11, 2016 09:37
[2016-10-11] MEDS ORDERED: methylPREDNISolone 40 MG/ML (Solu-MEDROL) VIAL IV NR (09:45)
[2016-10-11] MEDS: ENOXAPARIN 100 MG/1 ML (LOVENOX) SYR SC SCH (11:16)
[2016-10-11 12:09] VITALS: BP 159/74
[2016-10-11 12:37] LABS: ALANINE AMINOTRANSFERASE 11 U/L (0-55); ALBUMIN 3.7 G/DL (3.2-4.5); ANION GAP 9 MMOL/L (5-14); ASPARTATE AMINO TRANSFERASE 13 U/L (5-34); BILIRUBIN,TOTAL 0.5 MG/DL (0.1-1.0); BLOOD UREA NITROGEN 10 MG/DL (7-18); BUN/CREATININE RATIO 13; CALCIUM 8.6 MG/DL (8.5-10.1); CARBON DIOXIDE 26 MMOL/L (21-32); CHLORIDE 106 MMOL/L (98-107); CREATININE SERUM 0.75 MG/DL (0.60-1.30); GFR ESTIMATED > 60; GLUCOSE 120 MG/DL (70-105); POTASSIUM 3.3 MMOL/L (3.6-5.0); SODIUM 141 MMOL/L (135-145); TOTAL PROTEIN 6.8 G/DL (6.4-8.2)
--- NOTE | 2016-10-11 13:25 | ECHOCARDIOGRAPHY REPORT ---
DATE OF SERVICE: 10/11/2016 REFERRING PHYSICIANS: Dr. Bee and Dr. Torres. MEASUREMENT: LVID end diastolic 5.8, IVS thickness 1.1, LVPW thickness 1.1, left atrial diameter 4.3, ejection fraction 40%. FINDINGS: 1. Technically difficult study. 2. The left ventricle is normal in size with diffuse left ventricular hypokinesia. Systolic function is reduced. Estimated ejection fraction 40%. 3. The left atrium is mildly dilated. No clot or thrombus were seen within the left atrium. 4. The right atrium and right ventricle are normal in size. No clot or thrombus were seen within the right side. 5. Mitral valve is calcified with mild mitral regurgitation noted by color Doppler flow. No mitral valve prolapse. No mitral valve stenosis. Doppler across the mitral valve showed pseudonormalization suggestive of diastolic dysfunction. 6. Aortic valve is calcified, there is no significant aortic stenosis or regurgitation was seen. 7. Tricuspid valve is normal in morphology with mild tricuspid regurgitation noted by color Doppler flow. Doppler across the tricuspid valve estimated pulmonary artery pressure of 24 plus right atrial pressure. 8. Pulmonic valve is functioning normally. 9. No pericardial effusion. IN CONCLUSION: 1. Technically difficult study. 2. Normal left ventricular size, diffuse left ventricular hypokinesia with estimated ejection fraction 40%, diastolic dysfunction is suggested by Doppler. 3. Mildly dilated left atrium. 4. Mild mitral and tricuspid regurgitation. 5. Aortic valve sclerosis, no aortic stenosis. 6. Estimated pulmonary artery pressure of 30 mmHg. Job ID: [id number] DocumentID: [id number] Dictated Date: 10/11/2016 11:57:35 Personal Lines Account Manager Date: 10/11/2016 12:52:32 Dictated By: ANDREA GONZALEZ MD
== END 2016-10-11 09:34 | disposition home or self-care (01) ==
LOC: EDUNIT# 07:42 → ER 07:43 → 4TH 09:47 → UNDOADMOB 09:47 → 4TH 10:17 → ENPENDDIS 10-11 10:30 → UNDODISOB 10-11 13:57
PROVIDERS: ADMIT Family Medicine; ATTEND Family Medicine
DX: R07.9 Chest pain, unspecified (principal); J44.9 Chronic obstructive pulmonary disease, unspecified; Z99.81 Dependence on supplemental oxygen; E89.0 Postprocedural hypothyroidism; I10 Essential (primary) hypertension; M06.9 Rheumatoid arthritis, unspecified; K21.9 Gastro-esophageal reflux disease without esophagitis
CPT/HCPCS: 36415; 71010; 80053; 80061; 83735; 83874; 83880; 84484; 85025; 85379; 85610; 85730; 93005; 93041; 93306; 96374; 96375; 96376; G0378

== ENCOUNTER 2017-05-12 17:08 | Inpatient (IN) | payer MEDICARE ==
[~2017-05-12] VITALS: Ht 166.4 cm; Wt 72.2 kg
[~2017-05-12 17:08] MED LIST changes: +ASPI-983 PO; +CNC1KV IJ; +CYAN10006 IM/IV; +DICL100G18 TOP; +DILT300T9 PO; +DOCU-143 PO; +GABA-490 PO; +GLUC-203 PO; +LEVO150T6 PO; +LEVO175T5 PO; +MECL-106 PO; +PANT40TA3 PO; +PRAS1TAB2 PO; +UBID100C44 PO; +lactulose
--- OUTSIDE RECORDS SUMMARY | 2017-05-12 17:16 | XMS REPORT | Continuity of Care Document ---
Author Author [facility] Organization [facility] Address Unknown Phone Unavailable Allergies Active Description Code Type Severity Reaction Onset Reported/Identified Relationship to Patient Clinical Status Yes Penicillins [id number] Drug Allergy Unknown N/A 07/05/2011 Yes Benadryl Drug Allergy Severe HIVES 09/12/2012 Yes latex Drug Allergy Severe HIVES 09/12/2012 Yes No Known Food Allergies Food Allergy N/A N/A 09/12/2012 Yes Penicillins Drug Allergy Severe HIVES 09/12/2012 Yes No Known Food Allergies Food Allergy 09/16/2012 Yes diphenhydramine HCl [id number] Drug Allergy Unknown N/A 05/15/2014 Yes amoxicillin [id number] Drug Allergy Mild N/A 10/10/2016 Medications There is no data. Problems Date Dx Coded Attending Type Code Diagnosis Diagnosed By 04/28/1416 KP WILLS DO Ot 266.2 B-COMPLEX DEFIC NEC 04/28/1416 KP WILLS DO Ot 280.9 IRON DEFIC ANEMIA NOS 04/28/1416 KP WILLS DO Ot 285.9 ANEMIA NOS 07/08/2011 Ot 041.86 HELICOBACTER PYLORI [H. PYLORI] 07/08/2011 Ot 244.9 HYPOTHYROIDISM NOS 07/08/2011 Ot 266.2 B-COMPLEX DEFIC NEC 07/08/2011 Ot 268.9 VITAMIN D DEFICIENCY NOS 07/08/2011 Ot 272.4 HYPERLIPIDEMIA NEC/NOS 07/08/2011 Ot 278.01 MORBID OBESITY 07/08/2011 Ot 401.0 MALIGNANT HYPERTENSION 07/08/2011 Ot 416.8 CHR PULMON HEART DIS NEC 07/08/2011 Ot 455.8 HEMRRHOID NOS W COMP NEC 07/08/2011 Ot 493.00 EXTRINSIC ASTHMA, NOS 07/08/2011 Ot 530.11 REFLUX ESOPHAGITIS 07/08/2011 Ot 531.40 CHR STOMACH ULC W HEM 07/08/2011 Ot 535.50 UNSP GASTRITIS GASTRODUODENITIS W/O ME 07/08/2011 Ot 715.89 OSTEOARTHROSIS-MULT SITE 07/08/2011 Ot V58.64 LONG-TERM( CURRENT)USE OF NON-STEROIDAL A 07/08/2011 Ot V85.37 BODY MASS INDEX 37.0-37.9, ADULT 09/13/2012 Fer Calixto MD Final 241.1 NONTOXIC MULTINOD GOITER 09/13/2012 Fer Calixto MD Final 245.2 CHR LYMPHOCYT THYROIDIT 09/13/2012 Fer Calixto MD Final 275.41 HYPOCALCEMIA 09/13/2012 Fer Calixto MD Final 276.8 HYPOPOTASSEMIA 09/13/2012 Fer Calixto MD Final 401.9 HYPERTENSION NOS 09/13/2012 Fer Calixto MD Final 715.90 OSTEOARTHOSIS NOS-NOS 09/13/2012 Fer Calixto MD Final 753.0 RENAL AGENESIS 09/13/2012 Fer Calixto MD 787.20 DYSPHAGIA NOS 09/14/2012 Fer Calixto MD Final 241.1 NONTOXIC MULTINOD GOITER 09/14/2012 Fer Calixto MD Final 245.2 CHR LYMPHOCYT THYROIDIT 09/14/2012 Fer Calixto MD Final 275.41 HYPOCALCEMIA 09/14/2012 Fer Calixto MD Final 276.8 HYPOPOTASSEMIA 09/14/2012 Fer Cailxto MD Final 401.9 HYPERTENSION NOS 09/14/2012 Fer Calixto MD Final 753.0 RENAL AGENESIS 09/14/2012 Fer Calixto MD 787.20 DYSPHAGIA NOS 09/16/2012 Pedro Aleman MD Final 275.41 HYPOCALCEMIA 09/16/2012 Pedro Aleman MD Final 276.8 HYPOPOTASSEMIA 09/16/2012 Pedro Aleman MD Final 401.9 HYPERTENSION NOS 09/16/2012 Pedro Aleman MD Admitting 782.0 SKIN SENSATION DISTURB 09/16/2012 Pedro Aleman MD Final V45.79 ACQ ABSENCE ORGAN NEC 03/09/2013 TJ YARBROUGH MD Ot 455.0 INT HEMORRHOID W/O COMPL 03/09/2013 TJ YARBROUGH MD Ot 455.3 EXT HEMORRHOID W/O COMPL 03/09/2013 TJ YRABROUGH MD Ot 562.10 DIVERTICULOSIS COLON (W/O MENT OF HEMORR 03/09/2013 TJ YARBROUGH MD Ot 564.00 UNSPEC CONSTIPATION 03/09/2013 TJ YARBROUGH MD Ot V16.0 FAMILY HX-GI MALIGNANCY 03/09/2013 TJ YARBROUGH MD Ot V76.51 SCREEN MAL NEOP-COLON 03/29/2013 REFUGIO HOWARD, KYLE Wright Ot 780.4 DIZZINESS AND GIDDINESS 10/15/2013 CARLEEN IZQUIERDO MD Ot 278.00 OBESITY, NOS 10/15/2013 CARLEEN IZQUIERDO MD, Ot 338.4 CHRONIC PAIN SYNDROME 10/15/2013 CARLEEN IZQUIERDO MD, Ot 722.4 CERVICAL DISC DEGEN 10/15/2013 CARLEEN IZQUIERDO MD, Ot 729.1 MYALGIA AND MYOSITIS NOS 10/15/2013 CARLEEN IZQUIERDO MD, Ot V58.69 OTH MED,LT,CURRENT USE 10/15/2013 CARLEEN IZQUIERDO MD Ot V85.39 BODY MASS INDEX 39.0-39.9, ADULT 02/15/2014 CARLEEN IZQUIEROD MD Ot 278.00 OBESITY, NOS 02/15/2014 CARLEEN IZQUIERDO MD Ot 338.4 CHRONIC PAIN SYNDROME 02/15/2014 CARLEEN IZQUIERDO MD Ot 721.3 LUMBOSACRAL SPONDYLOSIS 02/15/2014 CARLEEN IZQUIERDO MD, Ot 722.52 LUMB/LUMBOSAC DISC DEGEN 02/15/2014 CARLEEN IZQUIERDO MD Ot 729.1 MYALGIA AND MYOSITIS NOS 02/15/2014 CARLEEN IZQUIERDO MD, Ot V58.69 OTH MED,LT,CURRENT USE 02/15/2014 CARLEEN IZQUIERDO MD Ot V85.38 BODY MASS INDEX 38.0-38.9, ADULT 03/29/2014 CARLEEN IZQUIERDO MD Ot 278.00 OBESITY, NOS 03/29/2014 CARLEEN IZQUIERDO MD, Ot 338.4 CHRONIC PAIN SYNDROME 03/29/2014 CARLEEN IZQUIERDO MD, Ot 721.3 LUMBOSACRAL SPONDYLOSIS 03/29/2014 CARLEEN IZQUIERDO MD, Ot 722.52 LUMB/LUMBOSAC DISC DEGEN 03/29/2014 CARLEEN IZQUIERDO MD, Ot 729.1 MYALGIA AND MYOSITIS NOS 03/29/2014 CARLEEN IZQUIERDO MD Ot V58.69 OTH MED,LT,CURRENT USE 03/29/2014 CARLEEN IZQUIERDO MD Ot V85.36 BODY MASS INDEX 36.0-36.9, ADULT 04/24/2014 CARLEEN IZQUIERDO MD Ot 722.52 04/24/2014 CARLEEN IZQUIERDO MD Ot 737.30 05/06/2014 CARLEEN IZQUIERDO MD Ot 722.52 05/06/2014 CARLEEN IZQUIERDO MD Ot 737.30 05/17/2014 KP WILLS DO Ot 244.0 POSTSURGICAL HYPOTHYROID 05/17/2014 KP WILLS DO Ot 266.2 B-COMPLEX DEFIC NEC 05/17/2014 KP WILLS DO Ot 272.0 PURE HYPERCHOLESTEROLEM 05/17/2014 KP WILLS DO Ot 278.00 OBESITY, NOS 05/17/2014 KP WILLS DO Ot 280.0 CHR BLOOD LOSS ANEMIA 05/17/2014 KP WILLS DO Ot 327.26 SLEEP RELATED HYPOVENTILATION/HYPOXEMIA 05/17/2014 KP WILLS DO Ot 356.9 IDIO PERIPH NEURPTHY NOS 05/17/2014 KP WILLS DO Ot 401.9 HYPERTENSION NOS 05/17/2014 KP WILLS DO Ot 416.8 CHR PULMON HEART DIS NEC 05/17/2014 KP WILLS DO Ot 493.00 EXTRINSIC ASTHMA, NOS 05/17/2014 KP WILLS DO Ot 530.11 REFLUX ESOPHAGITIS 05/17/2014 KP WILLS DO Ot 530.81 05/17/2014 KP WILLS DO Ot 533.90 PEPTIC ULCER NOS 05/17/2014 KP WILLS DO Ot 535.50 UNSP GASTRITIS GASTRODUODENITIS W/O ME 05/17/2014 KP WILLS DO Ot 553.3 DIAPHRAGMATIC HERNIA 05/17/2014 KP WILLS DO Ot 562.10 DIVERTICULOSIS COLON (W/O MENT OF HEMORR 05/17/2014 KP WILLS DO Ot 715.90 OSTEOARTHROS NOS-UNSPEC 05/17/2014 KP WILLS DO Ot 753.0 RENAL AGENESIS 05/17/2014 KP WILLS DO Vicente Ot V12.09 PERSONAL HISTORY OTH SPEC INFECT JANENE 05/17/2014 KP WILLS DO Vicente Ot V12.79 PERSONAL HISTORY OTH SPEC DIGESTIVE SYST 05/17/2014 WILLSMADI BARNES KP Vicente Ot V58.64 LONG-TERM(CURRENT)USE OF NON-STEROIDAL A 05/17/2014 WILLS KP Vicente Ot V85.37 BODY MASS INDEX 37.0-37.9, ADULT 06/05/2014 JOHANN AMINTA Mira JEWEL BEARING TURNER Ot 244.9 06/05/2014 JOHANN AMINTA Mira JEWEL BEARING TURNER Ot 719.46 06/05/2014 JOHANN AMINTA Mira JEWEL BEARING TURNER Ot 782.3 06/05/2014 JOHANN AMINTA Mira JEWEL BEARING TURNER Ot 786.09 06/24/2014 JOHANN AMINTA Meyers JEWEL BEARING TURNER Ot 244.9 06/24/2014 JOHANN AMINTA Mira JEWEL BEARING TURNER Ot 719.46 06/24/2014 JOHANN AMINTA Mira JEWEL BEARING TURNER Ot 782.3 06/24/2014 JOHANN AMINTA Meyers JEWEL BEARING TURNER Ot 786.09 07/18/2014 JOHANN BARNES KP Vicente Ot 416.8 07/25/2014 KP WILLS DO Ot 416.8 11/13/2014 MATTEO WINTER DO Ot 845.00 SPRAIN OF ANKLE NOS 11/13/2014 MATTEO WINTER DO Ot 847.1 SPRAIN THORACIC REGION 11/13/2014 MATTEO WINTER DO Ot 847.2 SPRAIN LUMBAR REGION 11/13/2014 MATTEO WINTER DO Ot 924.10 CONTUSION OF LOWER LEG 11/13/2014 MATTEO WINTER DO Ot 959.7 LOWER LEG INJURY NOS 11/13/2014 MATTEO WINTER DO Ot E000.8 OTHER EXTERNAL CAUSE STATUS 11/13/2014 MATTEO WINTER DO Ot E849.0 ACCIDENT IN HOME 11/13/2014 MATTEO WINTER DO Ot E880.9 FALL ON STAIR/STEP NEC 12/13/2014 FELECIA HOWARD, CARLEEN Zhang Ot 278.00 OBESITY, NOS 12/13/2014 CARLEEN IZQUIERDO MD Ot 338.4 CHRONIC PAIN SYNDROME 12/13/2014 CARLEEN IZQUIERDO MD Ot 722.52 LUMB/LUMBOSAC DISC DEGEN 12/13/2014 CARLEEN IZQUIERDO MD Ot V58.69 OTH MED,LT,CURRENT USE 12/13/2014 CARLEEN IZQUIERDO MD Ot V85.36 BODY MASS INDEX 36.0-36.9, ADULT 12/26/2014 KP WILLS DO Ot V76.12 01/14/2015 Ot 793.81 01/14/2015 Ot V76.12 01/14/2015 Ot 611.89 01/14/2015 Ot 611.89 01/14/2015 Ot 241.0 01/14/2015 Ot 241.0 01/14/2015 Ot 722.52 01/14/2015 Ot 246.2 01/14/2015 Ot V76.12 01/14/2015 TJ YARBROUGH MD Ot V72.84 01/14/2015 KP WILLS DO Ot 715.96 01/14/2015 KP WILLS DO Ot 722.52 01/14/2015 KP WILLS DO Ot 784.2 01/14/2015 KP WILLS DO Ot V45.89 01/14/2015 KP WILLS DO Ot V76.12 01/14/2015 KP WILLS DO Ot 721.0 01/14/2015 CARLEEN IZQUIERDO MD Ot 278.00 01/14/2015 CARLEEN IZQUIERDO MD Ot 338.4 01/14/2015 CARLEEN IZQUIERDO MD Ot 721.3 01/14/2015 CARLEEN IZQUIERDO MD Ot 722.4 01/14/2015 CARLEEN IZQUIERDO MD Ot 722.52 01/14/2015 CARLEEN IZQUIERDO MD Ot 729.1 01/14/2015 CARLEEN IZQUIERDO MD Ot V58.69 01/14/2015 CARLEEN IZQUIERDO MD Ot V85.38 01/14/2015 CARLEEN IZQUIERDO MD Ot 715.36 01/14/2015 CARLEEN IZQUIERDO MD Ot 721.0 01/14/2015 CARLEEN IZQUIERDO MD Ot 721.3 01/14/2015 CARLEEN IZQUIERDO MD Ot 737.30 01/14/2015 CARLEEN IZQUIERDO MD Ot 722.52 01/14/2015 CARLEEN IZQUIERDO MD Ot 737.30 01/14/2015 JOHANNAMINTA JEWEL BEARING TURNER Ot 244.9 01/14/2015 JOHANNAMINTA JEWEL BEARING TURNER Ot 719.46 01/14/2015 JOHANNAMINTA JEWEL BEARING TURNER Ot 782.3 01/14/2015 JOHANN AMINTA Meyers JEW[employer] BEARING TURNER Ot 786.09 01/14/2015 KP WILLS DO Ot 416.8 01/14/2015 KP WILLS DO Ot V76.12 01/14/2015 KP WILLS DO Ot V76.12 01/21/2015 KP WILLS DO Ot 266.2 B-COMPLEX DEFIC NEC 01/21/2015 KP WILLS DO Ot 280.9 IRON DEFIC ANEMIA NOS 01/21/2015 KP WILLS DO Ot 285.9 ANEMIA NOS 01/21/2015 KP WILLS DO Ot 266.2 01/21/2015 KP WILLS DO Ot 280.9 01/21/2015 KP WILLS DO Ot 285.9 01/21/2015 KP WILLS DO Ot 266.2 01/21/2015 KP WILLS DO Ot 280.9 01/21/2015 KP WILLS DO Ot 285.9 01/21/2015 KP WILLS DO Ot 266.2 01/21/2015 KP WILLS DO Ot 280.9 01/21/2015 KP WILLS DO Ot 285.9 02/05/2015 CARLEEN IZQUIERDO MD Ot 719.45 02/13/2015 CARLEEN IZQUIERDO MD Ot 719.45 02/13/2015 KP WILLS DO Ot 285.9 ANEMIA NOS 02/21/2015 TJ YARBROUGH MD Ot 211.3 BENIGN NEOPLASM LG BOWEL 02/21/2015 TJ YARBROUGH MD Ot 285.9 ANEMIA NOS 02/21/2015 TJ YARBROUGH MD Ot 455.0 INT HEMORRHOID W/O COMPL 02/21/2015 TJ YARBROUGH MD Ot 455.3 EXT HEMORRHOID W/O COMPL 02/21/2015 TJ YARBROUGH MD Ot 530.11 REFLUX ESOPHAGITIS 02/21/2015 TJ YARBROUGH MD Ot 535.50 UNSP GASTRITIS GASTRODUODENITIS W/O ME 02/21/2015 TJ YARBROUGH MD Ot 553.3 DIAPHRAGMATIC HERNIA 06/20/2015 Ot 793.81 06/20/2015 Ot V76.12 06/20/2015 Ot 611.89 06/20/2015 Ot 611.89 06/20/2015 Ot 241.0 06/20/2015 Ot 241.0 06/20/2015 Ot 722.52 06/20/2015 Ot 246.2 06/20/2015 Ot V76.12 06/20/2015 TJ YARBROUGH MD Ot V72.84 06/20/2015 KP WILLS DO Ot 715.96 06/20/2015 KP WILLS DO Ot 722.52 06/20/2015 KP WILLS DO Ot 784.2 06/20/2015 KP WILLS DO Ot V45.89 06/20/2015 KP WILLS DO Ot V76.12 06/20/2015 KP WILLS DO Ot 721.0 06/20/2015 CARLEEN IZQUIERDO MD Ot 278.00 06/20/2015 CARLEEN IZQUIERDO MD Ot 338.4 06/20/2015 CARLEEN IZQUIERDO MD Ot 721.3 06/20/2015 CARLEEN IZQUIERDO MD Ot 722.4 06/20/2015 CARLEEN IZQUIERDO MD Ot 722.52 06/20/2015 CARLEEN IZQUIERDO MD Ot 729.1 06/20/2015 CARLEEN IZQUIERDO MD Ot V58.69 06/20/2015 CARLEEN IZQUIERDO MD Ot V85.38 06/20/2015 CARLEEN IZQUIERDO MD Ot 715.36 06/20/2015 CARLEEN IZQUIERDO MD Ot 721.0 06/20/2015 CARLEEN IZQUIERDO MD Ot 721.3 06/20/2015 CARLEEN IZQUIERDO MD Ot 737.30 06/20/2015 CARLEEN IZQUIERDO MD Ot 722.52 06/20/2015 CARLEEN IZQUIERDO MD Ot 737.30 06/20/2015 AMINTA WILLSP Ot 244.9 06/20/2015 AMINTA WILLSP Ot 719.46 06/20/2015 AMINTA WILLS JEW[employer]ARING TURNER Ot 782.3 06/20/2015 WILLSAMINTA LAZO JEW[employer]ARING TURNER Ot 786.09 06/20/2015 JOHANN BARNES KP Zhang Ot 416.8 06/20/2015 JOHANN BARNES KP Zhang Ot V76.12 06/20/2015 CARLEEN IZQUIERDO MD Ot 719.45 06/20/2015 ZENON HOWARD, [facility] Ot V72.84 06/20/2015 CARLEEN IZQUIERDO MD Ot M17.0 BILATERAL PRIMARY OSTEOARTHRITIS OF KNEE 06/20/2015 CARLEEN IZQUIERDO MD Ot M48.06 SPINAL STENOSIS, LUMBAR REGION 06/20/2015 CARLEEN IZQUIERDO MD Ot M51.16 INTERVERTEBRAL DISC DISORDERS W RADICULO 06/20/2015 CARLEEN IZQUIERDO MD Ot Z79.899 OTHER SHEARING MACHINE OPERATOR (CURRENT) DRUG THERAPY 09/03/2015 Ot M62.81 09/03/2015 Ot R26.9 09/03/2015 Ot R29.6 09/03/2015 Ot R41.3 09/03/2015 Ot M62.81 09/03/2015 Ot R26.9 09/03/2015 Ot R29.6 09/03/2015 Ot R41.3 09/19/2015 SUNIL CHOW MD Ot G47.33 OBSTRUCTIVE SLEEP APNEA (ADULT) (PEDIATR 09/23/2015 Ot M62.81 MUSCLE WEAKNESS (GENERALIZED) 09/23/2015 Ot R26.9 UNSPECIFIED ABNORMALITIES OF GAIT AND MO 09/23/2015 Ot R29.6 REPEATED FALLS 09/23/2015 Ot R41.3 OTHER AMNESIA 09/25/2015 SUNIL CHOW MD Ot G47.33 OBSTRUCTIVE SLEEP APNEA (ADULT) (PEDIATR 09/27/2015 SUNIL CHOW MD Ot G47.33 OBSTRUCTIVE SLEEP APNEA (ADULT) (PEDIATR 10/01/2015 Ot M62.81 MUSCLE WEAKNESS (GENERALIZED) 10/01/2015 Ot R26.9 UNSPECIFIED ABNORMALITIES OF GAIT AND MO 10/01/2015 Ot R29.6 REPEATED FALLS 10/01/2015 Ot R41.3 OTHER AMNESIA 12/09/2015 SHAWNA NORMAN Ot G47.33 OBSTRUCTIVE SLEEP APNEA (ADULT) (PEDIATR 12/17/2015 SHAWNA NORMAN Ot G47.33 OBSTRUCTIVE SLEEP APNEA (ADULT) (PEDIATR 12/19/2015 SHAWNA NORMAN Ot G47.33 OBSTRUCTIVE SLEEP APNEA (ADULT) (PEDIATR 01/09/2016 CAITIE HOWARD, PEDRO Hewitt Ot J39.2 OTHER DISEASES OF PHARYNX 01/12/2016 PEDRO BLOOD MD Ot J39.2 OTHER DISEASES OF PHARYNX 01/30/2016 PEDRO BLOOD MD Ot J39.2 OTHER DISEASES OF PHARYNX 02/05/2016 PEDRO BLOOD MD Ot J39.2 OTHER DISEASES OF PHARYNX 10/10/2016 Ot 722.52 LUMB/ LUMBOSAC DISC DEGEN 10/10/2016 Ot 246.2 CYST OF THYROID 10/10/2016 Ot V76.12 OTH SCREEN MAMMO-MALIGN NEOPLASM OF RHODA 10/10/2016 ZENON HOWARD, TJ Ot V72.84 EXAM PRE-OPERATIVE NOS 10/10/2016 KP WILLS DO Ot 715.96 OSTEOARTHROS NOS-L/LEG 10/10/2016 KP WILLS DO Ot 722.52 LUMB/LUMBOSAC DISC DEGEN 10/10/2016 KP WILLS DO Ot 784.2 SWELLING IN HEAD NECK 10/10/2016 KP WILLS DO Ot V45.89 POSTSURGICAL STATES NEC 10/10/2016 KP WILLS DO Ot V76.12 OT SCREEN MAMMO-MALIGN NEOPLASM OF RHODA 10/10/2016 KP WILLS DO Ot 721.0 CERVICAL SPONDYLOSIS 10/10/2016 CARLEEN IZQUIERDO MD Ot 278.00 OBESITY, NOS 10/10/2016 CARLEEN IZQUIERDO MD Ot 338.4 CHRONIC PAIN SYNDROME 10/10/2016 CARLEEN IZQUIERDO MD Ot 721.3 LUMBOSACRAL SPONDYLOSIS 10/10/2016 CARLEEN IZQUIERDO MD Ot 722.4 CERVICAL DISC DEGEN 10/10/2016 CARLEEN IZQUIERDO MD Ot 722.52 LUMB/LUMBOSAC DISC DEGEN 10/10/2016 CARLEEN IZQUIERDO MD Ot 729.1 MYALGIA AND MYOSITIS NOS 10/10/2016 CARLEEN IZQUIERDO MD Ot V58.69 OT MED,LT,CURRENT USE 10/10/2016 CARLEEN IZQUIERDO MD Ot V85.38 BODY MASS INDEX 38.0-38.9, ADULT 10/10/2016 CARLEEN IZQUIERDO MD Ot 715.36 LOC OSTEOARTH NOS-L/LEG 10/10/2016 CARLEEN IZQUIERDO MD Ot 721.0 CERVICAL SPONDYLOSIS 10/10/2016 CARLEEN IZQUIERDO MD Ot 721.3 LUMBOSACRAL SPONDYLOSIS 10/10/2016 CARLEEN IZQUIERDO MD Ot 737.30 IDIOPATHIC SCOLIOSIS 10/10/2016 CARLEEN IZQUIERDO MD Ot 722.52 LUMB/LUMBOSAC DISC DEGEN 10/10/2016 CARLEEN IZQUIERDO MD Ot 737.30 IDIOPATHIC SCOLIOSIS 10/10/2016 AMINTA WILLS JEW[employer]ARING TURNER Ot 244.9 HYPOTHYROIDISM NOS 10/10/2016 AMINTA WILLS JEWEL BEARING TURNER Ot 719.46 JOINT PAIN-L/LEG 10/10/2016 AMINTA WLILS JEWEL BEARING TURNER Ot 782.3 EDEMA 10/10/2016 AMINTA WILLS JEWEL BEARING TURNER Ot 786.09 RESPIRATORY ABNORM NEC 10/10/2016 KP WILLS DO Ot 416.8 CHR PULMON HEART DIS NEC 10/10/2016 KP WILLS DO Ot V76.12 OTH SCREEN MAMMO-MALIGN NEOPLASM OF RHODA 10/10/2016 CARLEEN IZQUIERDO MD Ot 719.45 JOINT PAIN-PELVIS 10/10/2016 JT YARBROUGH MD Ot V72.84 EXAM PRE-OPERATIVE NOS 10/10/2016 Ot M62.81 MUSCLE WEAKNESS (GENERALIZED) 10/10/2016 Ot R26.9 UNSPECIFIED ABNORMALITIES OF GAIT AND MO 10/10/2016 Ot R29.6 REPEATED FALLS 10/10/2016 Ot R41.3 OTHER AMNESIA 10/10/2016 CAITIE HOWARD, PEDRO Hewitt Ot J39.2 OTHER DISEASES OF PHARYNX 10/10/2016 Ot 722.52 LUMB/ LUMBOSAC DISC DEGEN 10/10/2016 Ot 246.2 CYST OF THYROID 10/10/2016 Ot V76.12 OTH SCREEN MAMMO-MALIGN NEOPLASM OF [place]OD[place] 10/10/2016 TJ YARBROUGH MD Ot V72.84 EXAM PRE-OPERATIVE NOS 10/10/2016 KP WILLS DO Ot 715.96 OSTEOARTHROS NOS-L/LEG 10/10/2016 KP WILLS DO Ot 722.52 LUMB/LUMBOSAC DISC DEGEN 10/10/2016 KP WILLS DO Ot 784.2 SWELLING IN HEAD NECK 10/10/2016 KP WILLS DO Ot V45.89 POSTSURGICAL STATES NEC 10/10/2016 KP WILLS DO Ot V76.12 OTH SCREEN MAMMO-MALIGN NEOPLASM OF RHOD[place] 10/10/2016 KP WILLS DO Ot 721.0 CERVICAL SPONDYLOSIS 10/10/2016 CARLEEN IZQUIERDO MD Ot 278.00 OBESITY, NOS 10/10/2016 CARLEEN IZQUIERDO MD Ot 338.4 CHRONIC PAIN SYNDROME 10/10/2016 CARLEEN IZQUIERDO MD Ot 721.3 LUMBOSACRAL SPONDYLOSIS 10/10/2016 CARLEEN IZQUIERDO MD Ot 722.4 CERVICAL DISC DEGEN 10/10/2016 CARLEEN IZQUIERDO MD Ot 722.52 LUMB/LUMBOSAC DISC DEGEN 10/10/2016 CARLEEN IZQUIERDO MD Ot 729.1 MYALGIA AND MYOSITIS NOS 10/10/2016 CARLEEN IZQUIERDO MD Ot V58.69 OTH MED,LT,CURRENT USE 10/10/2016 CARLEEN IZQUIERDO MD Ot V85.38 BODY MASS INDEX 38.0-38.9, ADULT 10/10/2016 CARLEEN IZQUIERDO MD Ot 715.36 LOC OSTEOARTH NOS-L/LEG 10/10/2016 CARLEEN IZQUIERDO MD Ot 721.0 CERVICAL SPONDYLOSIS 10/10/2016 CARLEEN IZQUIERDO MD Ot 721.3 LUMBOSACRAL SPONDYLOSIS 10/10/2016 CARLEEN IZQUIERDO MD Ot 737.30 IDIOPATHIC SCOLIOSIS 10/10/2016 CARLEEN IZQUIERDO MD Ot 722.52 LUMB/LUMBOSAC DISC DEGEN 10/10/2016 CARLEEN IZQUIERDO MD Ot 737.30 IDIOPATHIC SCOLIOSIS 10/10/2016 AMINTA WILLS JEW[employer]ARING TURNER Ot 244.9 HYPOTHYROIDISM NOS 10/10/2016 AMINTA WILLSP Ot 719.46 JOINT PAIN-L/LEG 10/10/2016 AMINTA WILLS JEW[employer]ARING TURNER Ot 782.3 EDEMA 10/10/2016 AMINTA WILLSP Ot 786.09 RESPIRATORY ABNORM NEC 10/10/2016 KP WILLS DO Ot 416.8 CHR PULMON HEART DIS NEC 10/10/2016 KP WILLS DO Ot V76.12 OTH SCREEN MAMMO-MALIGN NEOPLASM OF RHOD[place] 10/10/2016 CARLEEN IZQUIERDO MD Ot 719.45 JOINT PAIN-PELVIS 10/10/2016 TJ YARBROUGH MD Ot V72.84 EXAM PRE-OPERATIVE NOS 10/10/2016 Ot M62.81 MUSCLE WEAKNESS (GENERALIZED) 10/10/2016 Ot R26.9 UNSPECIFIED ABNORMALITIES OF GAIT AND MO 10/10/2016 Ot R29.6 REPEATED FALLS 10/10/2016 Ot R41.3 OTHER AMNESIA 10/10/2016 CAITIE HOWARD, PEDRO Hewitt Ot J39.2 OTHER DISEASES OF PHARYNX 10/11/2016 GERALDO HOWARD, SUNIL Moore Ot E89.0 POSTPROCEDURAL HYPOTHYROIDISM 10/11/2016 GERALDO HOWARD, SUNIL Moore Ot I10 ESSENTIAL (PRIMARY) HYPERTENSION 10/11/2016 SUNIL CHOW MD Ot J44.9 CHRONIC OBSTRUCTIVE PULMONARY DISEASE, U 10/11/2016 SUNIL CHOW MD Ot K21.9 GASTRO-ESOPHAGEAL REFLUX DISEASE WITHOUT 10/11/2016 SUNIL CHOW MD Ot M06.9 RHEUMATOID ARTHRITIS, UNSPECIFIED 10/11/2016 SUNIL CHOW MD Ot R07.9 CHEST PAIN, UNSPECIFIED 10/11/2016 GERALDO HOWARD, SUNIL Moore Ot Z99.81 DEPENDENCE ON SUPPLEMENTAL OXYGEN 01/17/2017 Ot 722.52 LUMB/ LUMBOSAC DISC DEGEN 01/17/2017 Ot 246.2 CYST OF THYROID 01/17/2017 Ot V76.12 OTH SCREEN MAMMO-MALIGN NEOPLASM OF RHOD[place] 01/17/2017 TJ YARBROUGH MD Ot V72.84 EXAM PRE-OPERATIVE NOS 01/17/2017 KP WILLS DO Ot 715.96 OSTEOARTHROS NOS-L/LEG 01/17/2017 KP WILLS DO Ot 722.52 LUMB/LUMBOSAC DISC DEGEN 01/17/2017 KP WILLS DO Ot 784.2 SWELLING IN HEAD NECK 01/17/2017 KP WILLS DO Ot V45.89 POSTSURGICAL STATES NEC 01/17/2017 KP WILLS DO Ot V76.12 OTH SCREEN MAMMO-MALIGN NEOPLASM OF [place] 01/17/2017 KP WILLS DO Ot 721.0 CERVICAL SPONDYLOSIS 01/17/2017 CARLEEN IZQUIERDO MD Ot 278.00 OBESITY, NOS 01/17/2017 CARLEEN IZQUIERDO MD Ot 338.4 CHRONIC PAIN SYNDROME 01/17/2017 CARLEEN IZQUIERDO MD Ot 721.3 LUMBOSACRAL SPONDYLOSIS 01/17/2017 CARLEEN IZQUIERDO MD Ot 722.4 CERVICAL DISC DEGEN 01/17/2017 CARLEEN IZQUIERDO MD Ot 722.52 LUMB/LUMBOSAC DISC DEGEN 01/17/2017 CARLEEN IZQUIERDO MD Ot 729.1 MYALGIA AND MYOSITIS NOS 01/17/2017 CARLEEN IZQUIERDO MD Ot V58.69 OTH MED,LT,CURRENT USE 01/17/2017 CARLEEN IZQUIERDO MD Ot V85.38 BODY MASS INDEX 38.0-38.9, ADULT 01/17/2017 CARLEEN IZQUIERDO MD Ot 715.36 LOC OSTEOARTH NOS-L/LEG 01/17/2017 CARLEEN IZQUIERDO MD Ot 721.0 CERVICAL SPONDYLOSIS 01/17/2017 CARLEEN IZQUIERDO MD Ot 721.3 LUMBOSACRAL SPONDYLOSIS 01/17/2017 CARLEEN IZQUIERDO MD Ot 737.30 IDIOPATHIC SCOLIOSIS 01/17/2017 CARLEEN IZQUIERDO MD Ot 722.52 LUMB/LUMBOSAC DISC DEGEN 01/17/2017 CARLEEN IZQUIERDO MD Ot 737.30 IDIOPATHIC SCOLIOSIS 01/17/2017 AMINTA WILLS JEW[employer]URNER Ot 244.9 HYPOTHYROIDISM NOS 01/17/2017 AMINTA WILLS JEWEL [employer]ARING TURNER Ot 719.46 JOINT PAIN-L/LEG 01/17/2017 AMINTA WILLS JEWEL [employer]ARING TURNER Ot 782.3 EDEMA 01/17/2017 AMINTA WILLS JEWEL [employer]ARING TURNER Ot 786.09 RESPIRATORY ABNORM NEC 01/17/2017 KP WILLS DO Ot 416.8 CHR PULMON HEART DIS NEC 01/17/2017 KP WILLS DO Ot V76.12 OTH SCREEN MAMMO-MALIGN NEOPLASM OF RHODA 01/17/2017 CARLEEN IZQUIERDO MD Ot 719.45 JOINT PAIN-PELVIS 01/17/2017 ZENON HOWARD, [place] Ot V72.84 EXAM PRE-OPERATIVE NOS 01/17/2017 Ot M62.81 MUSCLE WEAKNESS (GENERALIZED) 01/17/2017 Ot R26.9 UNSPECIFIED ABNORMALITIES OF GAIT AND MO 01/17/2017 Ot R29.6 REPEATED FALLS 01/17/2017 Ot R41.3 OTHER AMNESIA 01/17/2017 CAITIE HOWARD, PEDRO Hewitt Ot J39.2 OTHER DISEASES OF PHARYNX Procedures Code Description Performed By Performed On 45.16 ESOPHAGOGASTRODUODENOSCOPY [ EGD] W/CLOSE 07/06/2011 06.4 COMPLETE THYROIDECTOMY Fer Calixto MD 09/13/2012 37705 REMOVAL OF THYROID Fer Calixto MD 09/13/2012 45.16 ESOPHAGOGASTRODUODENOSCOPY [ EGD] W/CLOSE 05/17/2014 Results Test Result Range [id number] - 01/08/16 14:35 Serum or plasma urea nitrogen measurement (mass/volume) 12 mg/dL 7-18 Serum or plasma creatinine measurement (mass/volume) 0.91 mg/dL 0.60-1.30 Serum or plasma urea nitrogen/creatinine mass ratio 13 NRG Serum or plasma creatinine measurement with calculation of estimated glomerular filtration rate > NRG Complete blood count (CBC) with automated white blood cell (WBC) differential - 10/10/16 07:54 Blood leukocytes automated count (number/volume) 11.9 10*3/uL 4.3-11.0 Blood erythrocytes automated count (number/volume) 4.34 10*6/uL 4.35-5.85 Venous blood hemoglobin measurement (mass/volume) 11.8 g/dL 11.5-16.0 Blood hematocrit (volume fraction) 37 % 35-52 Automated erythrocyte mean corpuscular volume 86 [foz_us] 80-99 Automated erythrocyte mean corpuscular hemoglobin (mass per erythrocyte) 27 pg 25-34 Automated erythrocyte mean corpuscular hemoglobin concentration measurement ( mass/volume) 32 g/dL 32-36 Automated erythrocyte distribution width ratio 14.0 % 10.0-14.5 Automated blood platelet count (count/volume) 295 10*3/uL 130-400 Automated blood platelet mean volume measurement 11.1 [foz_us] 7.4-10.4 Automated blood neutrophils/100 leukocytes 75 % 42-75 Automated blood lymphocytes/100 leukocytes 15 % 12-44 Blood monocytes/100 leukocytes 8 % 0-12 Automated blood eosinophils/100 leukocytes 1 % 0-10 Automated blood basophils/100 leukocytes 0 % 0-10 Blood neutrophils automated count (number/volume) 8.9 10*3 1.8-7.8 Blood lymphocytes automated count (number/volume) 1.8 10*3 1.0-4.0 Blood monocytes automated count (number/volume) 0.9 10*3 0.0-1.0 Automated eosinophil count 0.2 10*3/uL 0.0-0.3 Automated blood basophil count (count/volume) 0.1 10*3/uL 0.0-0.1 PT panel in platelet poor plasma by coagulation assay - 10/10/16 07:54 Prothrombin time (PT) in platelet poor plasma by coagulation assay 13.9 s 12.2-14.7 INR in platelet poor plasma or blood by coagulation assay 1.1 0.8-1.4 Activated partial thromboplastin time (aPTT) in platelet poor plasma bycoagulation assay - 10/10/16 07:54 Activated partial thromboplastin time (aPTT) in platelet poor plasma bycoagulation assay 44 s 24-35 Comprehensive metabolic panel - 10/10/16 07:54 Serum or plasma sodium measurement (moles/volume) 144 mmol/L 135-145 Serum or plasma potassium measurement (moles/volume) 3.4 mmol/L 3.6-5.0 Serum or plasma chloride measurement (moles/volume) 112 mmol/L 98-107 Carbon dioxide 19 mmol/L 21-32 Serum or plasma anion gap determination (moles/volume) 13 mmol/L 5-14 Serum or plasma urea nitrogen measurement (mass/volume) 7 mg/dL 7-18 Serum or plasma creatinine measurement (mass/volume) 0.69 mg/dL 0.60-1.30 Serum or plasma urea nitrogen/creatinine mass ratio 10 NRG Serum or plasma creatinine measurement with calculation of estimated glomerular filtration rate > NRG Serum or plasma glucose measurement (mass/volume) 114 mg/dL 70-105 Serum or plasma calcium measurement (mass/volume) 9.0 mg/dL 8.5-10.1 Serum or plasma total bilirubin measurement (mass/volume) 0.5 mg/dL 0.1-1.0 Serum or plasma alkaline phosphatase measurement (enzymatic activity/volume) 60 U/L 40-136 Serum or plasma aspartate aminotransferase measurement (enzymatic activity/ volume) 13 U/L 5-34 Serum or plasma alanine aminotransferase measurement (enzymatic activity/volume ) 10 U/L 0-55 Serum or plasma protein measurement (mass/volume) 6.7 g/dL 6.4-8.2 Serum or plasma albumin measurement (mass/volume) 3.6 g/dL 3.2-4.5 Magnesium - 10/10/16 07:54 Magnesium 2.0 mg/dL 1.8-2.4 Serum or plasma troponin i.cardiac measurement (mass/volume) - 10/10/16 07:54 Serum or plasma troponin i.cardiac measurement (mass/volume) < ng/ mL <0.30 Myoglobin, serum - 10/10/16 07:54 Myoglobin, serum 34.7 ng/mL 10.0-92.0 Serum or plasma lithium measurement (moles/volume) - 10/10/16 07:54 BNP level 467.7 pg/mL <100.0 Fibrin D-dimer FEU measurement in platelet poor plasma (mass/volume) - 07:54 Fibrin D-dimer FEU measurement in platelet poor plasma (mass/volume) 1.28 ug/mL 0.00-0.49 Serum or plasma troponin i.cardiac measurement (mass/volume) - 10/10/16 12:15 Serum or plasma troponin i.cardiac measurement (mass/volume) < ng/ mL <0.30 Serum or plasma troponin i.cardiac measurement (mass/volume) - 10/10/16 16:05 Serum or plasma troponin i.cardiac measurement (mass/volume) < ng/ mL <0.30 Comprehensive metabolic panel - 10/11/16 12:06 Serum or plasma sodium measurement (moles/volume) 141 mmol/L 135-145 Serum or plasma potassium measurement (moles/volume) 3.3 mmol/L 3.6-5.0 Serum or plasma chloride measurement (moles/volume) 106 mmol/L 98-107 Carbon dioxide 26 mmol/L 21-32 Serum or plasma anion gap determination (moles/volume) 9 mmol/L 5-14 Serum or plasma urea nitrogen measurement (mass/volume) 10 mg/dL 7-18 Serum or plasma creatinine measurement (mass/volume) 0.75 mg/dL 0.60-1.30 Serum or plasma urea nitrogen/creatinine mass ratio 13 NRG Serum or plasma creatinine measurement with calculation of estimated glomerular filtration rate > NRG Serum or plasma glucose measurement (mass/volume) 120 mg/dL 70-105 Serum or plasma calcium measurement (mass/volume) 8.6 mg/dL 8.5-10.1 Serum or plasma total bilirubin measurement (mass/volume) 0.5 mg/dL 0.1-1.0 Serum or plasma alkaline phosphatase measurement (enzymatic activity/volume) 74 U/L 40-136 Serum or plasma aspartate aminotransferase measurement (enzymatic activity/ volume) 13 U/L 5-34 Serum or plasma alanine aminotransferase measurement (enzymatic activity/volume ) 11 U/L 0-55 Serum or plasma protein measurement (mass/volume) 6.8 g/dL 6.4-8.2 Serum or plasma albumin measurement (mass/volume) 3.7 g/dL 3.2-4.5 Serum or plasma troponin i.cardiac measurement (mass/volume) - 10/11/16 12:06 Serum or plasma troponin i.cardiac measurement (mass/volume) < ng/ mL <0.30 Encounters ACCT No. Visit Date/Time Discharge Status Pt. Type Provider Facility Loc./Unit Complaint [id number] 09/16/2012 14:14:00 09/16/2012 20:15:00 DIS Emergency Ash HOWARD, Pedro Valdovinos [facility] [id number] 09/13/2012 09:34:00 09/14/2012 23:59:00 DIS Inpatient Fer Calixto MD Via [facility] F8SE [id number] 10/10/2016 09:47:00 10/11/2016 13:57:00 DIS Inpatient SUNIL CHOW MD Via [facility] 4TH CHEST PAIN, CONCERN FOR ACS, PE [id number] 01/08/2016 14:02:00 01/08/2016 23:59:59 CLS Outpatient PEDRO BLOOD MD [facility] RAD LT THROAT MASS [id number] 12/08/2015 20:30:00 12/09/2015 06:45:00 DIS Outpatient SHAWNA NORMAN [facility] SLEEP RYANN,SNORING,HTN [id number] 09/18/2015 21:15:00 09/19/2015 07:01:00 DIS Outpatient SUNIL CHOW MD Via [facility] SLEEP OBSERVED APNEAS, SNORING,EXCESSIVE DAYTIME SLEEP [id number] 06/20/2015 08:41:00 06/20/2015 09:24:00 DIS Outpatient CARLEEN IZQUIERDO MD Via [facility] CARD DISC DISORDER W/ RADICULOPATHY LUMBAR [id number] 02/21/2015 10:05:00 02/21/2015 13:30:00 DIS Outpatient TJ YARBROUGH MD Via [facility] SD ANEMIA/OCCULT BLOOD [id number] 02/18/2015 05:46:00 02/18/2015 23:59:59 CLS Outpatient TJ YARBROUGH MD Via [facility] PREOP ANEMIA/OCCULT BLOOD [id number] 02/13/2015 08:22:00 02/13/2015 18:15:00 DIS Outpatient KP WILLS DO Via [facility] SDC ANEMIA [id number] 01/21/2015 08:25:00 01/21/2015 14:17:00 DIS Outpatient KP WILLS DO Via [facility] ANEMIA,IRON DEFICIENCY [id number] 01/16/2015 11:36:00 01/16/2015 23:59:59 CLS Outpatient CARLEEN IZQUIERDO MD Via [facility] RAD ACUTE PAIN OF R HIP [id number] 12/13/2014 07:06:00 12/13/2014 08:03:00 DIS Outpatient CARLEEN IZQUIERDO MD Via [facility] CARD DDD [id number] 11/12/2014 21:52:00 11/13/2014 02:26:00 DIS Emergency MOY MATTEO BARNES Via [facility] ER PAIN FROM FALL [id number] 11/12/2014 14:56:00 11/12/2014 23:59:59 CLS Outpatient KP WILLS DO Via [facility] RAD SCREENING [id number] 06/20/2014 09:00:00 06/20/2014 23:59:59 CLS Outpatient KP WILLS DO Via [facility] CARD PULMONARY HEART DISEASE [id number] 05/15/2014 16:25:00 05/17/2014 18:05:00 DIS Inpatient KP WILLS DO Via [facility] 4TH ANEMIA [id number] 05/15/2014 12:00:00 05/15/2014 23:59:59 CLS Outpatient AMINTA WILLS Via [facility] RAD KNEE PAIN, DYSPNEA ,HYPOTHYROID,EDEMA [id number] 03/29/2014 08:59:00 03/29/2014 11:15:00 DIS Outpatient CARLEEN IZQUIERDO MD Via [facility] DDD [id number] 03/28/2014 15:46:00 03/28/2014 23:59:59 CLS Outpatient CARLEEN IZQUIERDO MD Via [facility] RAD LUMBAGO [id number] 02/15/2014 09:06:00 02/15/2014 10:55:00 DIS Outpatient CARLEEN IZQUIERDO MD Via [facility] DEGENERATIVE DISC DISEASE LUMBAR [id number] 01/29/2014 14:12:00 01/29/2014 23:59:59 CLS Outpatient CARLEEN IZQUIERDO MD Via [facility] RAD RIGHT KNEE PAIN,LUMBAGO, CERVICAL PAIN [id number] 11/12/2013 12:34:00 11/12/2013 23:59:59 CLS Outpatient CARLEEN IZQUIERDO MD Via [facility] DEGENERATIVE DISC DISEASE OF LUMBAR REGION [id number] 10/15/2013 14:03:00 10/15/2013 15:16:00 DIS Outpatient CARLEEN IZQUIERDO MD Via [facility] DEGENERATIVE DISC DISEASE CERVICAL [id number] 10/01/2013 14:55:00 10/01/2013 23:59:59 CLS Outpatient KP WILLS DO Via [facility] RAD RT C-7 RADICULOPATHY [id number] 07/31/2013 13:29:00 07/31/2013 23:59:59 CLS Outpatient KP WILLS DO Via [facility] RAD PALPABLE LUMP LT SIDE NECK,SCREENING [id number] 06/20/2013 14:40:00 06/20/2013 23:59:59 CLS Outpatient KP WILLS DO Via [facility] RAD KNEE/LUMBAR PAIN [id number] 03/29/2013 14:22:00 03/29/2013 17:50:00 DIS Emergency REFUGIO HOWARD, KYLE Wright Via [facility] ER DIZZY/CHILLS/SHAKES [id number] 03/09/2013 09:07:00 03/09/2013 12:40:00 DIS Outpatient TJ YARBROUGH MD Via [facility] SDC SCREENING [id number] 03/08/2013 07:15:00 03/08/2013 23:59:59 CLS Outpatient TJ YARBROUGH MD [facility] PREOP SCREENING [id number] 05/12/2017 17:10:00 ACT Emergency JOSE ANTONIO HOWARD, RICK Valdovinos [facility] ER NOT EATING,NOT TAKING MEDICATION X2 DAYS [id number] 09/01/2015 08:28:00 Document Registration [id number] 01/14/2015 13:53:00 Document Registration [id number] 05/15/2014 17:05:00 Document Registration [id number] 06/23/2012 11:31:00 Document Registration [id number] 03/28/2012 09:45:00 Document Registration [id number] 07/05/2011 13:11:00 Document Registration [id number] 04/01/2011 11:05:00 Document Registration [id number] 02/23/2011 12:48:00 Document Registration [id number] 02/09/2011 14:22:00 Document Registration [id number] 07/20/2010 14:48:00 Document Registration
--- NOTE | 2017-05-12 18:22 | ED General ---
General Stated Complaint: NOT EATING,NOT TAKING MEDICATION X2 DAYS Source of Information: Patient, Family Exam Limitations: No Limitations History of Present Illness Time Seen by Provider: 18:19 Initial Comments Brought to ER by her sisters with reports of no appetite, not eating or drinking for most of this week. She's not been taking any of her medications at all for several weeks because she states that she cannot afford them. She has some left upper quadrant abdominal pain. She has lost about 20 pounds over the past few months. Patient herself is alert but states that she feels confused and has no appetite. Timing/Duration: 1-2 Days, Getting Worse Severity: Moderate Associated Systoms: No Nausea/Vomiting, No Syncope, Weakness Allergies and Home Medications Allergies Coded Allergies: amoxicillin (Verified Allergy, Mild, 10/10/16) Penicillins (Verified Allergy, Unknown, 07/05/11) diphenhydramine HCl (Verified Allergy, Unknown, 05/15/14) Home Medications Antiox #11/Om3/Dha/Epa/Lut/Carlos 1 Each Capsule, 1 CAP PO DAILY, (Reported) Aspirin 81 Mg Tablet.dr, 81 MG PO DAILY for 90 Days, #90 Prescribed by: SUNIL CHOW on 10/11/16 0934 Calcium Carbonate/Vitamin D3 1 Each Tablet, 1 TAB PO DAILY, (Reported) Cyanocobalamin 1,000 Mcg/Ml Inj, 1,000 MCG IJ MONTHLY, (Reported) Diclofenac Sodium 100 Gm Gel..gram., 4 GM TOP TID PRN for JOINT PAIN, (Reported) Diltiazem HCl 300 Mg Tab.er.24h, 300 MG PO DAILY, (Reported) Docusate Sodium 100 Mg Capsule, 100 MG PO DAILY, (Reported) Doxazosin Mesylate 2 Mg Tablet, 2 MG PO DAILY, (Reported) Duloxetine HCl 60 Mg Capsule.dr, 60 MG PO DAILY, (Reported) Gabapentin 400 Mg Capsule, 400 MG PO TID, (Reported) Glucosam/Chond/Hyalu/Cf Borate 1 Each Tablet, 1 TAB PO DAILY, (Reported) Hydrocodone Bit/Acetaminophen 1 Tab Tablet, 1 TAB PO BID PRN for PAIN-MODERATE, (Reported) Levothyroxine Sodium 175 Mcg Tablet, 175 MCG PO, (Reported) Levothyroxine Sodium 150 Mcg Tablet, 150 MCG PO, (Reported) Loratadine/Pseudoephedrine 1 Tab.sr .24 H Tab.sr.24h, 1 TAB PO DAILY, (Reported) Losartan Potassium 100 Mg Tablet, 100 MG PO DAILY, (Reported) LAST FILLED 05-12-16 #60 Meclizine HCl 25 Mg Tablet, 25 MG PO DAILY, (Reported) Pantoprazole Sodium 40 Mg Tablet.dr, 40 MG PO DAILY, (Reported) Potassium Chloride 20 Meq Tab.prt.sr, 20 MEQ PO DAILY, (Reported) Prasterone (Dhea)/Calcium Carb 1 Each Tablet, 50 MG PO DAILY, (Reported) Pyridoxine/Melatonin 1 Tab Tablet, 3 MG PO HS, (Reported) Sodium Chloride 59 Ml Mist, 1 SPRAY NA HS, (Reported) Torsemide 20 Mg Tablet, 40 MG PO DAILY, (Reported) TAKES 2 (20MG) TABLETS DAILY Ubidecarenone 100 Mg Capsule, 100 MG PO DAILY, (Reported) Constitutional: see HPI EENTM: see HPI Respiratory: no symptoms reported Cardiovascular: no symptoms reported Genitourinary: no symptoms reported Musculoskeletal: no symptoms reported Skin: no symptoms reported Psychiatric/Neurological: No Symptoms Reported Hematologic/Lymphatic: No Symptoms Reported Immunological/Allergic: no symptoms reported Past Vgexwsi-Yniwfh-Ieeuhy Hx Patient Social History 2nd Hand Smoke Exposure: No Recent Foreign Travel: No Contact w/Someone Who Travel: No Recent Hopitalizations: No Immunizations Up To Date Tetanus Booster (TDap): More than 5yrs Date of Pneumonia Vaccine: Jan 28, 2011 Date of Influenza Vaccine: Feb 27, 2014 Seasonal Allergies Seasonal Allergies: Yes Surgeries History of Surgeries: Yes (COLONOSCOPY) Surgeries: Breast, Gallbladder, Thyroidectomy, Tonsillectomy Respiratory History of Respiratory Disorde: Yes (WEARS O2 @ NIGHT) Respiratory Disorders: Asthma, Pneumonia, Sleep Apnea Cardiovascular History of Cardiac Disorders: Yes Cardiac Disorders: High Cholesterol, Hypertension, Irregular Heartbeat Neurological History of Neurological Disord: Yes Neurological Disorders: Headaches /Migraines, Neuropathy Reproductive System Hx Reproductive Disorders: No Sexually Transmitted Disease: No HIV/AIDS: No Female Reproductive Disorders: Denies Gastrointestinal History of Gastrointestinal Di: Yes (H.PYLORI ULCERS) Gastrointestinal Disorders: Gastroesophageal Reflux, Chronic Constipation, Hemorrhoids, Ulcer, Gall Bladder Disease Musculoskeletal History of Musculoskeletal Dis: Yes Musculoskeletal Disorders: Degenerate Disk Disease, Arthritis, Rheumatoid Arthritis, Chronic Back Pain Endocrine History of Endocrine Disorders: Yes (OBESITY) Endocrine Disorders: Hypothyroidsim HEENT HEENT Disorders: Cataract Loss of Vision: Denies Hearing Impairment: Denies Cancer History of Cancer: No Psychosocial History of Psychiatric Problem: No Integumentary History of Skin or Integumenta: No Blood Transfusions History of Blood Disorders: Yes (ANEMIA) Adverse Reaction to a Blood Tr: No Family Medical History Significant Family History: Heart Disease, Cancer, Diabetes, Hypertension, Stroke Family Medial History: Arthritis 19 FATHER G8 SISTER Colon cancer 19 MOTHER Diabetes mellitus 19 MOTHER Gastroenteritis G8 BROTHER Headache disorder 19 FATHER Hypercholesterolemia 19 MOTHER G8 BROTHER G8 SISTER Hypertension 19 MOTHER G8 BROTHER G8 SISTER Myocardial infarction 19 MOTHER G8 BROTHER G8 SISTER Neoplasm 19 FATHER Osteoporosis G8 SISTER No Family History of: AIDS Abdominal aortic aneurysm Ararat's disease Alcoholism Alzheimer's disease Aphasia Asthma Cancer of mouth Cardiovascular disease Cataracts Completed stroke Congenital disease Congenital heart disease Coronary thrombosis Cystic fibrosis Deafness or hearing loss Dementia Drug abuse Dysphasia Fibrocystic disease of breast Glaucoma Infertility Kidney disease Not obtainable due to adoption Parkinson's disease Prostate cancer Psychosocial problem Respiratory disorder Seizure disorder Severe allergy Thyroid disease Tuberculosis Visual disorder Physical Exam Vital Signs Vital Sign - Last 12Hours 05/12/17 18:15 Temp 96.9 Pulse 60 Resp 12 B/P (MAP) 165/118 (134) Pulse Ox 94 O2 Delivery Room Air Capillary Refill : General Appearance: No Apparent Distress, WD/WN, Chronically ill, Other (dry mucous membranes alert and oriented to person place and situation but not time.) Eyes: Bilateral Eye Normal Inspection, Bilateral Eye PERRL, Bilateral Eye EOMI HEENT: PERRL/EOMI, TMs Normal, Normal ENT Inspection Neck: Full Range of Motion, Normal Inspection Respiratory: Lungs Clear, Normal Breath Sounds, No Accessory Muscle Use, No Respiratory Distress Cardiovascular: Regular Rate, Rhythm, Normal Peripheral Pulses Gastrointestinal: Normal Bowel Sounds, Non Tender, Soft Extremity: Normal Capillary Refill, Normal Inspection, No Pedal Edema Neurologic/Psychiatric: Alert, No Motor/Sensory Deficits, Other (Flat affect) Skin: Normal Color, Warm/Dry Progress/Results/Core Measures Suspected Sepsis SIRS Temperature: Pulse: Respiratory Rate: Laboratory Tests 05/12/17 18:20: White Blood Count 8.2 Blood Pressure / Mean: Laboratory Tests 05/12/17 18:20: INR Comment 1.0, Platelet Count 182 05/12/17 19:00: Creatinine 2.29H, Total Bilirubin 0.8 Results/Orders Lab Results Laboratory Tests Test 05/12/17 18:20 05/12/17 19:00 Range/Units White Blood Count 8.2 4.3-11.0 10^3/uL Red Blood Count 5.69 4.35-5.85 10^6/uL Hemoglobin 16.7 H 11.5-16.0 G/DL Hematocrit 49 35-52 % Mean Corpuscular Volume 86 80-99 FL Mean Corpuscular Hemoglobin 29 25-34 PG Mean Corpuscular Hemoglobin Concent 34 32-36 G/DL Red Cell Distribution Width 16.5 H 10.0-14.5 % Platelet Count 182 130-400 10^3/uL Mean Platelet Volume 12.4 H 7.4-10.4 FL Neutrophils (%) (Auto) 72 42-75 % Lymphocytes (%) (Auto) 20 12-44 % Monocytes (%) (Auto) 7 0-12 % Eosinophils (%) (Auto) 0 0-10 % Basophils (%) (Auto) 1 0-10 % Neutrophils # (Auto) 5.9 1.8-7.8 X 10^3 Lymphocytes # (Auto) 1.6 1.0-4.0 X 10^3 Monocytes # (Auto) 0.6 0.0-1.0 X 10^3 Eosinophils # (Auto) 0.0 0.0-0.3 10^3/uL Basophils # (Auto) 0.0 0.0-0.1 10^3/uL Prothrombin Time 13.4 12.2-14.7 SEC INR Comment 1.0 0.8-1.4 Hemoglobin A1c 5.1 4.5-6.2 % Sodium Level 135 135-145 MMOL/L Potassium Level 3.5 L 3.6-5.0 MMOL/L Chloride Level 86 L 98-107 MMOL/L Carbon Dioxide Level 32 21-32 MMOL/L Anion Gap 17 H 5-14 MMOL/L Blood Urea Nitrogen 42 H 7-18 MG/DL Creatinine 2.29 H 0.60-1.30 MG/DL Estimat Glomerular Filtration Rate 21 BUN/Creatinine Ratio 18 Glucose Level 97 70-105 MG/DL Calcium Level 9.7 8.5-10.1 MG/DL Magnesium Level 2.7 H 1.8-2.4 MG/DL Total Bilirubin 0.8 0.1-1.0 MG/DL Aspartate Amino Transf (AST/SGOT) 51 H 5-34 U/L Alanine Aminotransferase (ALT/SGPT) 53 0-55 U/L Alkaline Phosphatase 69 40-136 U/L Troponin I < 0.30 <0.30 NG/ML B-Type Natriuretic Peptide 12.4 <100.0 PG/ML Total Protein 8.1 6.4-8.2 GM/DL Albumin 4.5 3.2-4.5 GM/DL Lipase 44 8-78 U/L Thyroid Stimulating Hormone (TSH) 169.05 H 0.35-4.94 UIU/ML Free Thyroxine < 0.40 L 0.70-1.48 NG/DL My Orders Orders - CARMELA GLEASON APRN Cbc With Automated Diff (05/12/17 18:14) Comprehensive Metabolic Panel (05/12/17 18:14) Lipase (05/12/17 18:14) BNP (05/12/17 18:14) Troponin I (05/12/17 18:14) Ekg Tracing (05/12/17 18:14) Ua Culture If Indicated (05/12/17 18:14) Saline Lock/Iv-Start (05/12/17 18:14) Ct Head Wo (05/12/17 18:14) Protime With Inr (05/12/17 18:14) Magnesium (05/12/17 18:14) Ns Iv 1000 Ml (Sodium Chloride 0.9%) (05/12/17 18:30) Thyroid Stimulating Hormone (05/12/17 18:25) Free T4 (Free Thyroxine) (05/12/17 18:25) Hemoglobin A1c (05/12/17 18:25) Ct Chest/Abdomen/Pelvis Wo (05/12/17 18:48) Ns Iv 1000 Ml (Sodium Chloride 0.9%) (05/12/17 19:45) Levothyroxine Injection (Synthroid Injec (05/12/17 20:45) Vital Signs/I&O Vital Sign - Last 12Hours 05/12/17 18:15 Temp 96.9 Pulse 60 Resp 12 B/P (MAP) 165/118 (134) Pulse Ox 94 O2 Delivery Room Air Capillary Refill : Departure Communication (Admissions) Progress Notes She is not bradycardic and her blood pressure is adequate. She is not hyponatremic. She is alert with a normal respiratory rate and drive. She is receiving her second liter of IV fluids in the emergency room currently and 200 g of IV Synthroid has been ordered. We will repeat 75 g IV in the morning with a recheck of TSH and free T4. Dr. Argueta agrees with this plan. Impression Impression: Primary Impression: Myxedema Additional Impression: Acute renal failure Disposition: ADMITTED INPATIENT Condition: Stable Admissions Decision to Admit Reason: Admit from ER (General) Decision to Admit/Date: May 12, 2017 Time/Decision to Admit Time: 20:45 Departure-Patient Inst. Referrals: SUNIL MANN MD (PCP/Family) Primary Care Physician CARMELA GLEASON APRN May 12, 2017 18:21
[2017-05-12] MEDS ORDERED: NS IV 1000 ML 1,000 ML IV SCH ×2 (18:30→19:45)
[2017-05-12 18:40] LABS: BASOPHILS % (AUTO) 1 % (0-10); EOSINOPHILS % (AUTO) 0 % (0-10); LYMPHOCYTES # (AUTO) 1.6 X 10^3 (1.0-4.0); LYMPHOCYTES % (AUTO) 20 % (12-44); MEAN CORPUSCULAR HEMOGLOBIN 29 PG (25-34); MEAN CORPUSCULAR HGB CONC 34 G/DL (32-36); MEAN CORPUSCULAR VOLUME 86 FL (80-99); MEAN PLATELET VOLUME 12.4 FL (7.4-10.4); MONOCYTES # (AUTO) 0.6 X 10^3 (0.0-1.0); MONOCYTES % (AUTO) 7 % (0-12); NEUTROPHILS # (AUTO) 5.9 X 10^3 (1.8-7.8); NEUTROPHILS % (AUTO) 72 % (42-75); PLATELET COUNT 182 10^3/uL (130-400); RED BLOOD COUNT 5.69 10^6/uL (4.35-5.85); RED CELL DISTRIBUTION WIDTH 16.5 % (10.0-14.5); WHITE BLOOD COUNT 8.2 10^3/uL (4.3-11.0)
[2017-05-12 19:21] LABS: PROTHROMBIN TIME PATIENT 13.4 SEC (12.2-14.7)
--- NOTE | 2017-05-12 19:21 | Diagnostic Imaging Report ---
PROCEDURE: CT head without contrast. TECHNIQUE: Multiple contiguous axial images were obtained through the brain without the use of intravenous contrast. INDICATION: Altered mental status. Not eating. COMPARISON: CT from 03/29/2013 FINDINGS: The ventricles and cortical sulci are diffusely prominent. There is no midline shift or mass effect identified. There is no extra axial or intraparenchymal hemorrhage seen. Focal areas of decreased attenuation are seen in the subcortical and periventricular white matter. These likely represent chronic small vessel ischemic changes. The bony calvarium is intact. There is hyperostosis frontalis. There is complete opacification of the right maxillary sinus with thickening of the wall, consistent with chronic sinusitis. IMPRESSION: 1. No acute intracranial hemorrhage. No focal mass. No CT evidence of acute territorial ischemia. 2. Nonspecific white matter changes most likely representing small vessel ischemic disease. 3. Generalized parenchymal volume loss. 4. Chronic right maxillary sinusitis. Dictated by: Dictated on workstation # [id number]
--- NOTE | 2017-05-12 19:22 | Diagnostic Imaging Report ---
PROCEDURE: CT chest, abdomen and pelvis without contrast. TECHNIQUE: Multiple contiguous axial images were obtained through the chest, abdomen and pelvis without the use of intravenous contrast. INDICATION: Confusion. FINDINGS: CT chest: There is no focal infiltrate mass effusion or pneumothorax. No thoracic aneurysm. CT abdomen pelvis: There is no bowel, biliary or urinary tract obstruction. No focal inflammatory process. No aneurysm, adenopathy or mass. No free air. Noninflamed diverticulosis, chronic. Ectasia of the right renal pelvis is present without calyceal distention or ventura hydronephrosis. IMPRESSION: No acute abnormality at CT chest, abdomen and pelvis. Dictated by: Dictated on workstation # [id number]
[2017-05-12 19:31] LABS: ALANINE AMINOTRANSFERASE 53 U/L (0-55); ALBUMIN 4.5 GM/DL (3.2-4.5); ANION GAP 17 MMOL/L (5-14); ASPARTATE AMINO TRANSFERASE 51 U/L (5-34); BILIRUBIN,TOTAL 0.8 MG/DL (0.1-1.0); BLOOD UREA NITROGEN 42 MG/DL (7-18); BUN/CREATININE RATIO 18; CALCIUM 9.7 MG/DL (8.5-10.1); CARBON DIOXIDE 32 MMOL/L (21-32); CHLORIDE 86 MMOL/L (98-107); CREATININE SERUM 2.29 MG/DL (0.60-1.30); GFR ESTIMATED 21; GLUCOSE 97 MG/DL (70-105); LIPASE 44 U/L (8-78); MAGNESIUM 2.7 MG/DL (1.8-2.4); POTASSIUM 3.5 MMOL/L (3.6-5.0); SODIUM 135 MMOL/L (135-145); TOTAL PROTEIN 8.1 GM/DL (6.4-8.2)
[2017-05-12 20:21] LABS: THYROID STIMULATING HORMONE 169.05 UIU/ML (0.35-4.94); TROPONIN I < 0.30 NG/ML (<0.30)
[2017-05-12] MEDS ORDERED: LEVOTHYROXINE 100 MCG INJ (SYNTHROID) VIAL IV SCH ×2 (20:45→21:00)
--- OUTSIDE RECORDS SUMMARY | 2017-05-12 21:25 | XMS REPORT | Continuity of Care Document ---
Author Author [facility] Organization [facility] Address Unknown Phone Unavailable Allergies Active Description Code Type Severity Reaction Onset Reported/Identified Relationship to Patient Clinical Status Yes Penicillins [id number] Drug Allergy Unknown N/A 07/05/2011 Yes Benadryl Drug Allergy Severe HIVES 09/12/2012 Yes latex Drug Allergy Severe HIVES 09/12/2012 Yes No Known Food Allergies Food Allergy N/A N/A 09/12/2012 Yes Penicillins Drug Allergy Severe HIVES 09/12/2012 Yes No Known Food Allergies Food Allergy 09/16/2012 Yes diphenhydramine HCl [id number] Drug Allergy Unknown N/A 05/15/2014 Yes amoxicillin [id number] Drug Allergy Mild N/A 10/10/2016 Medications There [...] Calixto MD Final 276.8 HYPOPOTASSEMIA 09/14/2012 Fer Calixto MD Final 401.9 HYPERTENSION NOS 09/14/2012 Fer [...] 455.3 EXT HEMORRHOID W/O COMPL 03/09/2013 TJ YARBROUGH MD Ot 562.10 DIVERTICULOSIS COLON (W/O MENT [...] BODY MASS INDEX 39.0-39.9, ADULT 02/15/2014 CARLEEN IZQUIERDO MD Ot 278.00 OBESITY, NOS 02/15/2014 CARLEEN [...] INDEX 37.0-37.9, ADULT 06/05/2014 JOHANN AMINTA Mira ANALYTICAL RESEARCH CHEMIST Ot 244.9 06/05/2014 JOHANN AMINTA Mira ANALYTICAL RESEARCH CHEMIST Ot 719.46 06/05/2014 JOHANN AMINTA Mira ANALYTICAL RESEARCH CHEMIST Ot 782.3 06/05/2014 JOHANN AMINTA Mira ANALYTICAL RESEARCH CHEMIST Ot 786.09 06/24/2014 JOHANN AMINTA Meyers ANALYTICAL RESEARCH CHEMIST Ot 244.9 06/24/2014 JOHANN AMINTA iMra ANALYTICAL RESEARCH CHEMIST Ot 719.46 06/24/2014 JOHANN AMINTA Mira ANALYTICAL RESEARCH CHEMIST Ot 782.3 06/24/2014 JOHANN AMINTA Meyers ANALYTICAL RESEARCH CHEMIST Ot 786.09 07/18/2014 JOHANN BARNES KP Vicente [...] 01/14/2015 CARLEEN IZQUIERDO MD Ot 278.00 01/14/2015 CARLENE IZQUIERDO MD Ot 338.4 01/14/2015 CARLEEN IZQUIERDO [...] CARLEEN IZQUIERDO MD Ot 737.30 01/14/2015 JOHANNAMINTA ANALYTICAL RESEARCH CHEMIST Ot 244.9 01/14/2015 JOHANNAMINTA ANALYTICAL RESEARCH CHEMIST Ot 719.46 01/14/2015 JOHANNAMINTA ANALYTICAL RESEARCH CHEMIST Ot 782.3 01/14/2015 JOHANN AMINTA Meyers ANALYTICAL RESEARCH CHEMIST Ot 786.09 01/14/2015 KP WILLS DO Ot [...] AMINTA WILLSP Ot 719.46 06/20/2015 AMINTA WILLS ANALYTICAL RESEARCH CHEMIST Ot 782.3 06/20/2015 WILLSAMINTA LAZO ANALYTICAL RESEARCH CHEMIST Ot 786.09 06/20/2015 JOHANN BARNES KP Zhang Ot 416.8 06/20/2015 JOHANN BARNES KP Zhang Ot V76.12 06/20/2015 CARLEEN IZQUIERDO MD Ot 719.45 06/20/2015 [facility] V72.84 06/20/2015 CARLEEN IZQUIERDO MD Ot M17.0 BILATERAL PRIMARY OSTEOARTHRITIS OF KNEE 06/20/2015 CARLEEN IZQUIERDO MD Ot M48.06 SPINAL STENOSIS, LUMBAR REGION 06/20/2015 CARLEEN IZQUIERDO MD Ot M51.16 INTERVERTEBRAL DISC DISORDERS W RADICULO 06/20/2015 CARLEEN IZQUIERDO MD Ot Z79.8[address] TESTER (CURRENT) DRUG THERAPY 09/03/2015 Ot M62.81 09/03/2015 [...] J39.2 OTHER DISEASES OF PHARYNX 01/12/2016 PEDRO BOLOD MD Ot J39.2 OTHER DISEASES OF PHARYNX 01/30/2016 PEDRO BLOOD MD Ot J39.2 OTHER DISEASES OF PHARYNX 02/05/2016 PEDRO LBOOD MD Ot J39.2 OTHER DISEASES OF PHARYNX [...] BODY MASS INDEX 38.0-38.9, ADULT 10/10/2016 CARLEEN IZQUIEROD MD Ot 715.36 LOC OSTEOARTH NOS-L/LEG 10/10/2016 CARLEEN IZQUIERDO MD Ot 721.0 CERVICAL SPONDYLOSIS 10/10/2016 CARLEEN IZQUIERDO MD Ot 721.3 LUMBOSACRAL SPONDYLOSIS 10/10/2016 CARLEEN IZQUIERDO MD Ot 737.30 IDIOPATHIC SCOLIOSIS 10/10/2016 CARLEEN IZQUIERDO MD Ot 722.52 LUMB/LUMBOSAC DISC DEGEN 10/10/2016 CARLEEN IZQUIERDO MD Ot 737.30 IDIOPATHIC SCOLIOSIS 10/10/2016 AMINTA WILLS ANALYTICAL RESEARCH CHEMIST Ot 244.9 HYPOTHYROIDISM NOS 10/10/2016 AMINTA WILLS ANALYTICAL RESEARCH CHEMIST Ot 719.46 JOINT PAIN-L/LEG 10/10/2016 AMINTA WILLS ANALYTICAL RESEARCH CHEMIST Ot 782.3 EDEMA 10/10/2016 AMINTA WILLS ANALYTICAL RESEARCH CHEMIST Ot 786.09 RESPIRATORY ABNORM NEC 10/10/2016 KP [...] Ot 737.30 IDIOPATHIC SCOLIOSIS 10/10/2016 AMINTA WILLS ANALYTICAL RESEARCH CHEMIST Ot 244.9 HYPOTHYROIDISM NOS 10/10/2016 AMINTA WILLSP Ot 719.46 JOINT PAIN-L/LEG 10/10/2016 AMINTA WILLS ANALYTICAL RESEARCH CHEMIST Ot 782.3 EDEMA 10/10/2016 AMINTA WILLSP Ot [...] Ot 737.30 IDIOPATHIC SCOLIOSIS 01/17/2017 AMINTA WILLS ANALYTICAL RESEARCH CHEMIST Ot 244.9 HYPOTHYROIDISM NOS 01/17/2017 AMINTA WILLS ANALYTICAL RESEARCH CHEMIST Ot 719.46 JOINT PAIN-L/LEG 01/17/2017 AMINTA WILLS ANALYTICAL RESEARCH CHEMIST Ot 782.3 EDEMA 01/17/2017 AMINTA WILLS ANALYTICAL RESEARCH CHEMIST Ot 786.09 RESPIRATORY ABNORM NEC 01/17/2017 KP [...] 06.4 COMPLETE THYROIDECTOMY Fer Calixto MD 09/13/2012 19945 REMOVAL OF THYROID Fer Calixto MD 09/13/2012 45.16 ESOPHAGOGASTRODUODENOSCOPY [ EGD] W/CLOSE 05/17/2014 Results Test Result Range [id number] - 01/08/16 14:35 Serum or plasma urea [...] i.cardiac measurement (mass/volume) < ng/ mL <0.30 Complete blood count (CBC) with automated white blood cell (WBC) differential - 05/12/17 18:20 Blood leukocytes automated count (number/volume) 8.2 10*3/uL 4.3-11.0 Blood erythrocytes automated count (number/volume) 5.69 10*6/uL 4.35-5.85 Venous blood hemoglobin measurement (mass/volume) 16.7 g/dL 11.5-16.0 Blood hematocrit (volume fraction) 49 % 35-52 Automated erythrocyte mean corpuscular volume 86 [foz_us] 80-99 Automated erythrocyte mean corpuscular hemoglobin (mass per erythrocyte) 29 pg 25-34 Automated erythrocyte mean corpuscular hemoglobin concentration measurement ( mass/volume) 34 g/dL 32-36 Automated erythrocyte distribution width ratio 16.5 % 10.0-14.5 Automated blood platelet count (count/volume) 182 10*3/uL 130-400 Automated blood platelet mean volume measurement 12.4 [foz_us] 7.4-10.4 Automated blood neutrophils/100 leukocytes 72 % 42-75 Automated blood lymphocytes/100 leukocytes 20 % 12-44 Blood monocytes/100 leukocytes 7 % 0-12 Automated blood eosinophils/100 leukocytes 0 % 0-10 Automated blood basophils/100 leukocytes 1 % 0-10 Blood neutrophils automated count (number/volume) 5.9 10*3 1.8-7.8 Blood lymphocytes automated count (number/volume) 1.6 10*3 1.0-4.0 Blood monocytes automated count (number/volume) 0.6 10*3 0.0-1.0 Automated eosinophil count 0.0 10*3/uL 0.0-0.3 Automated blood basophil count (count/volume) 0.0 10*3/uL 0.0-0.1 Hemoglobin A1c - 05/12/17 18:20 Hemoglobin A1c 5.1 % 4.5-6.2 PT panel in platelet poor plasma by coagulation assay - 05/12/17 18:20 Prothrombin time (PT) in platelet poor plasma by coagulation assay 13.4 s 12.2-14.7 INR in platelet poor plasma or blood by coagulation assay 1.0 0.8-1.4 Comprehensive metabolic panel - 05/12/17 19:00 Serum or plasma sodium measurement (moles/volume) 135 mmol/L 135-145 Serum or plasma potassium measurement (moles/volume) 3.5 mmol/L 3.6-5.0 Serum or plasma chloride measurement (moles/volume) 86 mmol/L 98-107 Carbon dioxide 32 mmol/L 21-32 Serum or plasma anion gap determination (moles/volume) 17 mmol/L 5-14 Serum or plasma urea nitrogen measurement (mass/volume) 42 mg/dL 7-18 Serum or plasma creatinine measurement (mass/volume) 2.29 mg/dL 0.60-1.30 Serum or plasma urea nitrogen/creatinine mass ratio 18 NRG Serum or plasma creatinine measurement with calculation of estimated glomerular filtration rate 21 NRG Serum or plasma glucose measurement (mass/volume) 97 mg/dL 70-105 Serum or plasma calcium measurement (mass/volume) 9.7 mg/dL 8.5-10.1 Serum or plasma total bilirubin measurement (mass/volume) 0.8 mg/dL 0.1-1.0 Serum or plasma alkaline phosphatase measurement (enzymatic activity/volume) 69 U/L 40-136 Serum or plasma aspartate aminotransferase measurement (enzymatic activity/ volume) 51 U/L 5-34 Serum or plasma alanine aminotransferase measurement (enzymatic activity/volume ) 53 U/L 0-55 Serum or plasma protein measurement (mass/volume) 8.1 g/dL 6.4-8.2 Serum or plasma albumin measurement (mass/volume) 4.5 g/dL 3.2-4.5 Magnesium - 05/12/17 19:00 Magnesium 2.7 mg/dL 1.8-2.4 Serum or plasma troponin i.cardiac measurement (mass/volume) - 05/12/17 19:00 Serum or plasma troponin i.cardiac measurement (mass/volume) < ng/ mL <0.30 Serum or plasma lithium measurement (moles/volume) - 05/12/17 19:00 BNP level 12.4 pg/mL <100.0 Lipase - 05/12/17 19:00 Lipase 44 U/L 8-78 THYROID STIMULATING HORMONE - 05/12/17 19:00 THYROID STIMULATING HORMONE 169.05 u[iU]/mL 0.35-4.94 Serum or plasma thyroxine (T4) free measurement (mass/volume) - 05/12/17 19:00 Serum or plasma thyroxine (T4) free measurement (mass/volume) < ng/ dL 0.70-1.48 Encounters ACCT No. Visit Date/Time Discharge Status Pt. Type Provider Facility Loc./Unit Complaint [id number] 09/16/2012 14:14:00 09/16/2012 20:15:00 DIS Emergency Ash HOWARD, Pedro Valdovinos [facility] FERM [id number] 09/13/2012 09:34:00 09/14/2012 23:59:00 DIS Inpatient Fer Calixto MD [facility] F8SE [id number] 10/10/2016 09:47:00 10/11/2016 13:57:00 DIS Inpatient GERALDO HOWARD, SUNIL Moore [facility] 4TH CHEST PAIN, CONCERN FOR ACS, PE [id number] 01/08/2016 14:02:00 01/08/2016 23:59:59 CLS Outpatient PEDRO BLOOD MD [facility] RAD LT THROAT MASS [id number] 12/08/2015 20:30:00 12/09/2015 06:45:00 DIS Outpatient SHAWNA NORMAN [facility] SLEEP RYANN,SNORING,HTN [id number] 09/18/2015 21:15:00 09/19/2015 07:01:00 DIS Outpatient SUNIL CHOW MD [facility] SLEEP OBSERVED APNEAS, SNORING,EXCESSIVE DAYTIME SLEEP [id number] 06/20/2015 08:41:00 06/20/2015 09:24:00 DIS Outpatient CARLEEN IZQUIERDO MD [facility] CARD DISC DISORDER W/ RADICULOPATHY LUMBAR [id number] 02/21/2015 10:05:00 02/21/2015 13:30:00 DIS Outpatient TJ YARBROUGH MD [facility] SDC ANEMIA/OCCULT BLOOD [id number] 02/18/2015 05:46:00 02/18/2015 23:59:59 CLS Outpatient TJ YARBROUGH MD [facility] PREOP ANEMIA/OCCULT BLOOD [id number] 02/13/2015 08:22:00 02/13/2015 18:15:00 DIS Outpatient KP WILLS DO [facility] SDC ANEMIA [id number] 01/21/2015 08:25:00 01/21/2015 14:17:00 DIS Outpatient KP WILLS DO [facility] ANEMIA,IRON DEFICIENCY [id number] 01/16/2015 11:36:00 01/16/2015 23:59:59 CLS Outpatient CARLEEN IZQUIERDO MD [facility] RAD ACUTE PAIN OF R HIP [id number] 12/13/2014 07:06:00 12/13/2014 08:03:00 DIS Outpatient CARLEEN IZQUIERDO MD [facility] CARD DDD [id number] 11/12/2014 21:52:00 11/13/2014 02:26:00 DIS Emergency MATTEO WINTER DO [facility] ER PAIN FROM FALL [id number] 11/12/2014 14:56:00 11/12/2014 23:59:59 CLS Outpatient KP WILLS DO [facility] RAD SCREENING [id number] 06/20/2014 09:00:00 06/20/2014 23:59:59 CLS Outpatient KP WILLS DO [facility] CARD PULMONARY HEART DISEASE [id number] 05/15/2014 16:25:00 05/17/2014 18:05:00 DIS Inpatient KP WILLS DO [facility] 4TH ANEMIA [id number] 05/15/2014 12:00:00 05/15/2014 23:59:59 CLS Outpatient AMINTA WILLS [facility] RAD KNEE PAIN, DYSPNEA ,HYPOTHYROID,EDEMA [id number] 03/29/2014 08:59:00 03/29/2014 11:15:00 DIS Outpatient CARLEEN IZQUIERDO MD [facility] DDD [id number] 03/28/2014 15:46:00 03/28/2014 23:59:59 CLS Outpatient CARLEEN IZQUIERDO MD [facility] RAD LUMBAGO [id number] 02/15/2014 09:06:00 02/15/2014 10:55:00 DIS Outpatient CARLEEN IZQUIERDO MD [facility] DEGENERATIVE DISC DISEASE LUMBAR [id number] 01/29/2014 14:12:00 01/29/2014 23:59:59 CLS Outpatient CARLEEN IZQUIERDO MD [facility] RAD RIGHT KNEE PAIN,LUMBAGO, CERVICAL PAIN [id number] 11/12/2013 12:34:00 11/12/2013 23:59:59 CLS Outpatient CARLEEN IZQUIERDO MD [facility] DEGENERATIVE DISC DISEASE OF LUMBAR REGION [id number] 10/15/2013 14:03:00 10/15/2013 15:16:00 DIS Outpatient CARLEEN IZQUIERDO MD [facility] DEGENERATIVE DISC DISEASE CERVICAL [id number] 10/01/2013 14:55:00 10/01/2013 23:59:59 CLS Outpatient KP WILLS DO [facility] RAD RT C-7 RADICULOPATHY [id number] 07/31/2013 13:29:00 07/31/2013 23:59:59 CLS Outpatient KP WILLS DO [facility] RAD PALPABLE LUMP LT SIDE NECK,SCREENING [id number] 06/20/2013 14:40:00 06/20/2013 23:59:59 CLS Outpatient KP WILLS DO [facility] RAD KNEE/LUMBAR PAIN [id number] 03/29/2013 14:22:00 03/29/2013 17:50:00 DIS Emergency KYLE HUFF MD [facility] ER DIZZY/CHILLS/SHAKES [id number] 03/09/2013 09:07:00 03/09/2013 12:40:00 DIS Outpatient TJ YARBROUGH MD [facility] SDC SCREENING [id number] 03/08/2013 07:15:00 03/08/2013 23:59:59 CLS Outpatient TJ YARBROUGH MD [facility] PREOP SCREENING [id number] 05/12/2017 21:17:00 ACT Inpatient FREDA DAMON MD [facility] ICU ARF;MYXEDEMA STUPOR [id number] 09/01/2015 08:28:00 Document Registration [id number] 01/14/2015 13:53:00 Document Registration [id number] 05/15/2014 17:05:00 Document Registration [id number] 06/23/2012 11:31:00 Document Registration [id number] 03/28/2012 09:45:00 Document Registration [id number] 07/05/2011 13:11:00 Document Registration [id number] 04/01/2011 11:05:00 Document Registration [id number] 02/23/2011 12:48:00 Document Registration [id number] 02/09/2011 14:22:00 Document Registration [id number] 07/20/2010 14:48:00 Document Registration
[2017-05-12 22:45] VITALS: BP 166/90
[2017-05-12] MEDS ORDERED: NS IV 1000 ML 1,000 ML ONE (22:51)
[2017-05-12 23:00] VITALS: BP 162/89
[2017-05-12 23:15] VITALS: BP 152/89
[2017-05-12] MEDS: NS IV 1000 ML 1,000 ML IV SCH (23:15)
[2017-05-12 23:30] VITALS: BP 148/83
[2017-05-12 23:45] VITALS: BP 153/90
[2017-05-13] VITALS (22 sets, daily range): BP systolic 112–179; BP diastolic 64–99
[2017-05-13 02:53] LABS: BILIRUBIN,URINE NEGATIVE (NEGATIVE); KETONES,URINE NEGATIVE (NEGATIVE); LEUKOCYTE ESTERASE ,URINE 3+ (NEGATIVE); NITRITE,URINE NEGATIVE (NEGATIVE); PH,URINE 6 (5-9); PROTEIN,URINE 2+ (NEGATIVE); UROBILINOGEN,URINE NORMAL (NORMAL)
[2017-05-13 03:08] LABS: SQUAMOUS EPITHELIAL CELL,UR 0-2 /HPF
[2017-05-13] MEDS ORDERED: hydrALAZINE (APESOLINE) 20 MG/ML VIAL IV ONE (03:45)
[2017-05-13 05:51] LABS: BASOPHILS # (AUTO) 0.1 10^3/uL (0.0-0.1); BASOPHILS % (AUTO) 1 % (0-10); EOSINOPHILS % (AUTO) 0 % (0-10); LYMPHOCYTES # (AUTO) 1.8 X 10^3 (1.0-4.0); LYMPHOCYTES % (AUTO) 27 % (12-44); MEAN CORPUSCULAR HEMOGLOBIN 30 PG (25-34); MEAN CORPUSCULAR HGB CONC 34 G/DL (32-36); MEAN CORPUSCULAR VOLUME 87 FL (80-99); MEAN PLATELET VOLUME 12.5 FL (7.4-10.4); MONOCYTES # (AUTO) 0.5 X 10^3 (0.0-1.0); MONOCYTES % (AUTO) 8 % (0-12); NEUTROPHILS # (AUTO) 4.3 X 10^3 (1.8-7.8); NEUTROPHILS % (AUTO) 64 % (42-75); PLATELET COUNT 177 10^3/uL (130-400); RED BLOOD COUNT 4.91 10^6/uL (4.35-5.85); WHITE BLOOD COUNT 6.7 10^3/uL (4.3-11.0)
[2017-05-13] MEDS: POTASSIUM CL 10MEQ/50ML IVPB 50 ML IV SCH ×3 (06:00→08:23)
[2017-05-13] MEDS: KCL 20 MEQ TAB (K-DUR) PO SCH (06:00)
[2017-05-13 06:16] LABS: ALBUMIN 3.8 GM/DL (3.2-4.5); BILIRUBIN,TOTAL 0.7 MG/DL (0.1-1.0); CALCIUM 8.9 MG/DL (8.5-10.1); CREATININE SERUM 1.64 MG/DL (0.60-1.30); MAGNESIUM 2.4 MG/DL (1.8-2.4); PHOSPHORUS 3.6 MG/DL (2.3-4.7); POTASSIUM 2.8 MMOL/L (3.6-5.0); TOTAL PROTEIN 6.7 GM/DL (6.4-8.2)
[2017-05-13] MEDS: MAGNESIUM 1 GM/100 ML IVPB 100 ML IV SCH (06:28)
[2017-05-13] MEDS: NS IV 1000 ML 1,000 ML IV SCH ×3 (07:01→23:19)
[2017-05-13 07:09] LABS: THYROID STIMULATING HORMONE 132.61 UIU/ML (0.35-4.94)
[2017-05-13] MEDS ORDERED: INFLUENZA TRIvalent 2017-2018 0.5 ML/45 MCG SYR IM ONE (07:30)
[2017-05-13] MEDS ORDERED: CATHETER FLUSH 10 ML SYR IV PRN (07:30)
--- NOTE | 2017-05-13 08:39 | Diagnostic Imaging Report ---
EXAMINATION: Portable upright radiograph of the chest. INDICATION: Acute renal failure. FINDINGS: The heart size is moderately enlarged. There is minimal vascular congestion with no focal infiltrate. No significant effusion. No pneumothorax. The mediastinum and werner appear unremarkable. IMPRESSION: Cardiomegaly. Minimal vascular congestion. Dictated by: Dictated on workstation # [id number]
[2017-05-13] MEDS ORDERED: TRIA1TAB3 PO (08:44)
[2017-05-13] MEDS ORDERED: DICL100G31 TOP (08:44)
[2017-05-13] MEDS ORDERED: DOXA2TAB2 PO (08:44)
[2017-05-13] MEDS ORDERED: DULO60CA58 PO (08:44)
[2017-05-13] MEDS ORDERED: ASPI-983 PO (08:44)
[2017-05-13] MEDS ORDERED: POTA-51 PO (08:44)
[2017-05-13] MEDS ORDERED: TORS20TA3 PO (08:44)
[2017-05-13] MEDS ORDERED: LEVO200T6 PO (08:44)
[2017-05-13] MEDS ORDERED: DILT300T9 PO (08:47)
[2017-05-13] MEDS ORDERED: LEVOTHYROXINE 100 MCG INJ (SYNTHROID) VIAL IV SCH (09:15)
--- NOTE | 2017-05-13 11:02 | History & Physicial (CHS) ---
HPI History of Present Illness: 71 yo female brought to ER by her sisters because she would not eat for about 2 weeks more than one bite at a time and was becoming very drowsy and mildly confused. She was also not taking her medications, but they thought it may have been several days or 2 weeks, and it turns out she last filled medications in December. She states that she had some difficult situations hit her all at once and she was very down and didn't feel like doing anything, including taking medications, and that is why she stopped. She denies suicidal ideation. She denies history of depression in the past. Source: patient, family Date seen by provider: May 13, 2017 Time Seen by Provider: 10:15 Attending Physician Freda Argueta MD PCP Sunil Chavez MD Consult Date of Admission May 12, 2017 at 9:17 pm Home Medications Home Medications Reviewed patient Home Medication Reconciliation Form Allergies Coded Allergies: amoxicillin (Verified Allergy, Mild, 10/10/16) Penicillins (Verified Allergy, Unknown, 07/05/11) diphenhydramine HCl (Verified Allergy, Unknown, 05/15/14) LXI-Imoayk-Jjsapl Hx Patient Social History Alcohol Use: Denies Use Recreational Drug Use: No Smoking Status: Never a Smoker 2nd Hand Smoke Exposure: No Recent Foreign Travel: No Contact w/other who traveled: No Recent Hopitalizations: No Recent Infectious Disease Expo: No Physical Abuse Screen: No Sexual Abuse: No Immunizations Up To Date Tetanus Booster (TDap): More than 5yrs Date of Pneumonia Vaccine: Jan 28, 2011 Date of Influenza Vaccine: Feb 27, 2014 Past Medical History PMHx: Hypothyroidism (s/p thyroidectomy for goiter) Generalized osteoarthritis Hypertension GERD PSurgHx: Colectomy Thyroidectomy Family Medical History Significant Family History: Heart Disease, Cancer, Diabetes, Hypertension, Stroke Review of Systems (CHC) Constitutional: malaise, weakness EENTM: no symptoms reported Respiratory: no symptoms reported Cardiovascular: no symptoms reported Gastrointestinal: constipation, loss of appetite Genitourinary: no symptoms reported Musculoskeletal: back pain, joint pain Skin: dryness Psychiatric/Neurological: Depressed, Weakness Reviewed Test Results Reviewed Test Results Lab Laboratory Tests Test 05/12/17 18:20 05/12/17 19:00 05/13/17 02:00 05/13/17 05:35 Range/Units White Blood Count 8.2 6.7 4.3-11.0 10^3/uL Red Blood Count 5.69 4.91 4.35-5.85 10^6/uL Hemoglobin 16.7 H 14.5 11.5-16.0 G/DL Hematocrit 49 43 35-52 % Mean Corpuscular Volume 86 87 80-99 FL Mean Corpuscular Hemoglobin 29 30 25-34 PG Mean Corpuscular Hemoglobin Concent 34 34 32-36 G/DL Red Cell Distribution Width 16.5 H 16.0 H 10.0-14.5 % Platelet Count 182 177 130-400 10^3/uL Mean Platelet Volume 12.4 H 12.5 H 7.4-10.4 FL Neutrophils (%) (Auto) 72 64 42-75 % Lymphocytes (%) (Auto) 20 27 12-44 % Monocytes (%) (Auto) 7 8 0-12 % Eosinophils (%) (Auto) 0 0 0-10 % Basophils (%) (Auto) 1 1 0-10 % Neutrophils # (Auto) 5.9 4.3 1.8-7.8 X 10^3 Lymphocytes # (Auto) 1.6 1.8 1.0-4.0 X 10^3 Monocytes # (Auto) 0.6 0.5 0.0-1.0 X 10^3 Eosinophils # (Auto) 0.0 0.0 0.0-0.3 10^3/uL Basophils # (Auto) 0.0 0.1 0.0-0.1 10^3/uL Prothrombin Time 13.4 12.2-14.7 SEC INR Comment 1.0 0.8-1.4 Hemoglobin A1c 5.1 4.5-6.2 % Sodium Level 135 137 135-145 MMOL/L Potassium Level 3.5 L 2.8 L 3.6-5.0 MMOL/L Chloride Level 86 L 96 L 98-107 MMOL/L Carbon Dioxide Level 32 26 21-32 MMOL/L Anion Gap 17 H 15 H 5-14 MMOL/L Blood Urea Nitrogen 42 H 34 H 7-18 MG/DL Creatinine 2.29 H 1.64 H 0.60-1.30 MG/DL Estimat Glomerular Filtration Rate 21 31 BUN/Creatinine Ratio 18 21 Glucose Level 97 81 70-105 MG/DL Calcium Level 9.7 8.9 8.5-10.1 MG/DL Magnesium Level 2.7 H 2.4 1.8-2.4 MG/DL Total Bilirubin 0.8 0.7 0.1-1.0 MG/DL Aspartate Amino Transf (AST/SGOT) 51 H 43 H 5-34 U/L Alanine Aminotransferase (ALT/SGPT) 53 44 0-55 U/L Alkaline Phosphatase 69 59 40-136 U/L Troponin I < 0.30 <0.30 NG/ML B-Type Natriuretic Peptide 12.4 <100.0 PG/ML Total Protein 8.1 6.7 6.4-8.2 GM/DL Albumin 4.5 3.8 3.2-4.5 GM/DL Lipase 44 8-78 U/L Thyroid Stimulating Hormone (TSH) 169.05 H 132.61 H 0.35-4.94 UIU/ML Free Thyroxine < 0.40 L 0.65 L 0.70-1.48 NG/DL Urine Color YELLOW Urine Clarity CLEAR Urine pH 6 5-9 Urine Specific [place] 1.015 L 1.016-1.022 Urine Protein 2+ H NEGATIVE Urine Glucose (UA) NEGATIVE NEGATIVE Urine Ketones NEGATIVE NEGATIVE Urine Nitrite NEGATIVE NEGATIVE Urine Bilirubin NEGATIVE NEGATIVE Urine Urobilinogen NORMAL NORMAL MG/DL Urine Leukocyte Esterase 3+ H NEGATIVE Urine RBC (Auto) NEGATIVE NEGATIVE Urine RBC NONE /HPF Urine WBC 10-25 H /HPF Urine Squamous Epithelial Cells 0-2 /HPF Urine Crystals NONE /LPF Urine Bacteria TRACE /HPF Urine Casts PRESENT /LPF Urine Hyaline Casts 5-10 H /LPF Urine Mucus NEGATIVE /LPF Urine Culture Indicated YES Phosphorus Level 3.6 2.3-4.7 MG/DL Radiology Head CT 05/12- changes consistent with small vessel ischemic disease, generalized volume loss, chronic right maxillary sinusitis Chest/abdomen/pelvis CT 05/12- no acute abnormalities CXR 05/12- minimal vascular congestion Physical Exam-(CHC) Physical Exam Vital Signs VS - Last 72 Hours, by Label 05/12/17 05/12/17 05/12/17 05/12/17 18:15 22:30 22:30 22:40 Temp 96.9 96.9 Pulse 60 84 Resp 12 18 B/P (MAP) 165/118 (134) Pulse Ox 94 95 97 O2 Delivery Room Air Room Air Room Air 12/1405/12/17 05/12/17 05/12/17 22:45 22:45 23:00 23:15 Pulse 23 54 47 48 Resp 10 9 B/P (MAP) 166/90 (115) 162/89 (113) 152/89 (110) Pulse Ox 95 88 89 O2 Delivery Room Air Room Air Room Air 05/12/17 05/12/17 05/13/17 05/13/17 23:30 23:45 00:00 00:00 Temp 97.1 Pulse 47 47 48 Resp 6 16 B/P (MAP) 148/83 (104) 153/90 (111) 155/87 (109) Pulse Ox 94 97 96 O2 Delivery Nasal Cannula Nasal Cannula Nasal Cannula O2 Flow Rate 2.00 2.00 2.00 05/13/17 05/13/17 05/13/17 05/13/17 00:00 00:15 00:30 01:00 Pulse 48 49 48 Resp 14 15 B/P (MAP) 147/85 (105) 149/85 (106) Pulse Ox 97 96 95 O2 Delivery Nasal Cannula Nasal Cannula Nasal Cannula O2 Flow Rate 2.00 2.00 2.00 05/13/17 05/13/17 05/13/17 05/13/17 01:00 02:00 03:00 04:00 Pulse 48 58 44 Resp 12 18 18 B/P (MAP) 150/87 (108) 151/89 (109) 179/93 (121) Pulse Ox 95 95 98 97 O2 Delivery Nasal Cannula Nasal Cannula Nasal Cannula Nasal Cannula O2 Flow Rate 2.00 2.00 2.00 2.00 05/13/17 05/13/17 05/13/17 05/13/17 04:00 04:00 05:00 06:00 Temp 96.9 Pulse 46 57 52 Resp 12 34 21 B/P (MAP) 139/73 (95) 144/68 (93) 142/66 (91) Pulse Ox 99 96 97 O2 Delivery Nasal Cannula Nasal Cannula Nasal Cannula O2 Flow Rate 2.00 2.00 2.00 05/13/17 05/13/17 05/13/17 05/13/17 07:00 07:00 08:00 08:00 Temp 98.2 Pulse 49 54 56 Resp 12 21 B/P (MAP) 140/72 (94) 132/71 (91) Pulse Ox 97 99 99 O2 Delivery Nasal Cannula Nasal Cannula Nasal Cannula O2 Flow Rate 2.00 2.00 2.00 05/13/17 09:00 Pulse 67 Resp 9 B/P (MAP) 112/80 (91) Pulse Ox 98 O2 Delivery Nasal Cannula O2 Flow Rate 2.00 Capillary Refill : Less Than 3 Seconds General Appearance: WD/WN, no apparent distress Eyes: Bilateral Eye Normal Inspection Respiratory: lungs clear, normal breath sounds, no respiratory distress Cardiovascular: no murmur, bradycardia Gastrointestinal: non tender, soft, abnormal bowel sounds (hypoactive) Extremities: no pedal edema Neurologic/Psychiatric: normal mood/affect Skin: normal color, other (dry) Clinical Quality Measures DVT/VTE Risk/Contraindication: Risk Factor Score Per Nursin RFS Level Per Nursing on Admit: 2=Moderate Copy Copies To 1: SUNIL CHAVEZ MD Assessment/Plan Assessment/Plan (1) Myxedema Status: Acute Assessment & Plan: TSH 169 on admission, down to 132 after 200 mcg IV levothyroxine in ER. Was not taking levothyroxine for 3 months or more. Continue IV synthroid 75 mcg daily until clinical condition improved then resume home oral (2) Hypertension Status: Chronic Assessment & Plan: Resume home HCTZ/triamterene and doxasozin, hold diltiazem for now given bradycardia Qualifiers: Qualified Codes: I10 - Essential (primary) hypertension (3) Bradycardia Status: Acute Assessment & Plan: Secondary to hypothyroidism Monitor on telemetry (4) Depression Status: Acute Assessment & Plan: Discussed outpatient resources including counseling and medications, will connect with on d/c. Unclear how much depressive symptoms may improve with treatment of thyroid. (5) Sleep apnea Status: Chronic Assessment & Plan: Recommend bringing home cpap Qualifiers: Qualified Codes: G47.33 - Obstructive sleep apnea (adult) (pediatric) (6) Acute renal insufficiency Status: Acute Assessment & Plan: Secondary to poor intake Improving this am with IVF, continue NS and encourage PO intake, hold home torsemide (7) Hypokalemia Status: Acute Assessment & Plan: Replace and recheck (8) Osteoarthritis Status: Chronic Assessment & Plan: Holding home diclofenac due to renal insufficiency, holding home gabapentin due to lethargy on admission and holding home duloxetine to avoid arrhythmias Qualifiers: Qualified Codes: M15.0 - Primary generalized (osteo)arthritis (9) GERD (gastroesophageal reflux disease) Status: Chronic Assessment & Plan: Resume home pantoprazole (10) DVT prophylaxis Status: Acute Assessment & Plan: Enoxaparin and SCDs (11) Discharge planning issues Status: Acute Assessment & Plan: Transfer to floor today, anticipate d/c when eating and drinking well and safely ambulating FREDA ARGUETA MD May 13, 2017 11:02 am
[2017-05-13] MEDS: TRIAMTERENE/HCTZ 75-50 (MAXZIDE,DYAZIDE) TABLET PO SCH (11:43)
[2017-05-13] MEDS: doxAzosin 2 MG (CARDURA) TAB PO SCH (11:43)
[2017-05-13] MEDS: PANTOPRAZOLE 40 MG (PROTONIX) TAB PO SCH (11:49)
[2017-05-14] VITALS: BP 149/65
[2017-05-14] MEDS: NS IV 1000 ML 1,000 ML IV SCH ×3 (00:21→16:30)
[2017-05-14 04:00] VITALS: BP 129/65
[2017-05-14 05:15] LABS: ALBUMIN 3.5 GM/DL (3.2-4.5); BILIRUBIN,TOTAL 0.6 MG/DL (0.1-1.0); CREATININE SERUM 1.11 MG/DL (0.60-1.30); POTASSIUM 2.9 MMOL/L (3.6-5.0)
[2017-05-14] MEDS: MAGNESIUM 1 GM/100 ML IVPB 100 ML IV SCH (06:04)
[2017-05-14] MEDS: POTASSIUM CL 10MEQ/50ML IVPB 50 ML IV SCH (06:04)
[2017-05-14] MEDS: KCL 20 MEQ TAB (K-DUR) PO SCH (06:04)
[2017-05-14] MEDS: PANTOPRAZOLE 40 MG (PROTONIX) TAB PO SCH (06:25)
[2017-05-14 08:00] VITALS: BP 136/89
[2017-05-14] MEDS ORDERED: INFLUENZA TRIvalent 2017-2018 0.5 ML/45 MCG SYR IM ONE (08:19)
--- NOTE | 2017-05-14 08:22 | Diagnostic Imaging Report ---
INDICATION: Mixed edema. Upright chest shows mild cardiomegaly with no failure. The lungs are clear. There is no effusion or pneumothorax. There is no bony abnormality. IMPRESSION: Mild cardiomegaly. The chest is similar to the prior study from 05/13/2017. Dictated by: Dictated on workstation # [id number]
[2017-05-14] MEDS: TRIAMTERENE/HCTZ 75-50 (MAXZIDE,DYAZIDE) TABLET PO SCH (08:23)
[2017-05-14] MEDS: doxAzosin 2 MG (CARDURA) TAB PO SCH (08:23)
--- NOTE | 2017-05-14 08:34 | Progress Note (SOAP) ---
Subjective Subjective/Events-last exam Patient reports she is feeling much better than when she presented to the hospital. She is now out of the ICU and on fourth medical. She does report allergy like symptoms having a lot of nasal congestion. She is tolerating diet. Review of Systems Date Seen by Provider: May 14, 2017 Time Seen by Provider: 07:30 Objective Exam Last Set of Vital Signs Vital Signs Date Time Temp Pulse Resp B/P (MAP) Pulse Ox O2 Delivery O2 Flow Rate FiO2 05/14/17 04:00 97.3 50 16 129/65 (86) 94 Room Air 05/13/17 18:00 1.00 Capillary Refill : Less Than 3 Seconds I&O Intake and Output 05/14/17 00:00 Intake Total 2494 ml Output Total 2400 ml Balance 94 ml Intake Oral 1494 ml IV Total 1000 ml Output Urine Total 2400 ml # Bowel Movements 1 General: No Acute Distress HEENT: Mucous Memb Moist/Powers, Other (Nasal congestion noted) Lungs: Clear to Auscultation Heart: Regular Rate Abdomen: Soft Results/Procedures Lab Laboratory Tests 05/14/17 03:56: Sodium Level 138, Potassium Level 2.9L, Chloride Level 102, Carbon Dioxide Level 23, Anion Gap 13, Blood Urea Nitrogen 22H, Creatinine 1.11, Estimat Glomerular Filtration Rate 49, BUN/Creatinine Ratio 20, Glucose Level 84, Calcium Level 8.0L, Total Bilirubin 0.6, Aspartate Amino Transf (AST/SGOT) 30, Alanine Aminotransferase (ALT/SGPT) 33, Alkaline Phosphatase 46, Total Protein 6.0L, Albumin 3.5 Microbiology 05/13/17 Urine Culture - Preliminary, Resulted Nonenterococcus (Chains Cocci) Radiology Head CT 05/12- changes consistent with small vessel ischemic disease, generalized volume loss, chronic right maxillary sinusitis Chest/abdomen/pelvis CT 05/12- no acute abnormalities CXR 05/12- minimal vascular congestion Assessment/Plan Assessment/Plan Admission Dx (1) Myxedema Status: Acute Assessment & Plan: TSH 169 on admission, down to 132 after 200 mcg IV levothyroxine in ER. Was not taking levothyroxine for 3 months or more. Continue IV synthroid 75 mcg daily until clinical condition improved then resume home oral 05/14 Will switch to oral Synthroid today. Plan on checking TSH in the morning. (2) Hypertension Status: Chronic Assessment & Plan: Resume home HCTZ/triamterene and doxasozin, hold diltiazem for now given bradycardia Qualifiers: Qualified Codes: I10 - Essential (primary) hypertension (3) Bradycardia Status: Acute Assessment & Plan: Secondary to hypothyroidism Monitor on telemetry (4) Depression Status: Acute Assessment & Plan: Discussed outpatient resources including counseling and medications, will connect with on d/c. Unclear how much depressive symptoms may improve with treatment of thyroid. (5) Sleep apnea Status: Chronic Assessment & Plan: Recommend bringing home cpap Qualifiers: Qualified Codes: G47.33 - Obstructive sleep apnea (adult) (pediatric) (6) Acute renal insufficiency Status: Acute Assessment & Plan: Secondary to poor intake Improving this am with IVF, continue NS and encourage PO intake, hold home torsemide 05/14 Much improved today with creatinine of 1.1. (7) Hypokalemia Status: Acute Assessment & Plan: Replace and recheck 05/14 Continue with replacement of potassium (8) Osteoarthritis Status: Chronic Assessment & Plan: Holding home diclofenac due to renal insufficiency, holding home gabapentin due to lethargy on admission and holding home duloxetine to avoid arrhythmias Qualifiers: Qualified Codes: M15.0 - Primary generalized (osteo)arthritis (9) GERD (gastroesophageal reflux disease) Status: Chronic Assessment & Plan: Resume home pantoprazole (10) DVT prophylaxis Status: Acute Assessment & Plan: Enoxaparin and SCDs (11) Discharge planning issues Status: Acute Assessment & Plan: Transfer to floor today, anticipate d/c when eating and drinking well and safely ambulating Clinical Quality Measures DVT/VTE Risk/Contraindication: Risk Factor Score Per Nursin RFS Level Per Nursing on Admit: 2=Moderate SHABNAM ORNELAS MD May 14, 2017 08:34
[2017-05-14] MEDS: LEVOTHYROXINE 125 MCG (LEVOTHROID) TABLET PO SCH (08:46)
[2017-05-14 12:00] VITALS: BP 150/72
[2017-05-14 15:53] VITALS: BP 141/72
[2017-05-14 19:36] VITALS: BP 147/72
[2017-05-15] VITALS: BP 159/71
[2017-05-15] MEDS: NS IV 1000 ML 1,000 ML IV SCH ×3 (00:29→21:26)
[2017-05-15 04:00] VITALS: BP 147/71
[2017-05-15] MEDS: LEVOTHYROXINE 125 MCG (LEVOTHROID) TABLET PO SCH (06:08)
[2017-05-15] MEDS: PANTOPRAZOLE 40 MG (PROTONIX) TAB PO SCH (06:08)
[2017-05-15 06:37] LABS: CALCIUM 8.2 MG/DL (8.5-10.1); CREATININE SERUM 0.99 MG/DL (0.60-1.30); POTASSIUM 2.8 MMOL/L (3.6-5.0)
[2017-05-15 07:34] LABS: THYROID STIMULATING HORMONE 107.91 UIU/ML (0.35-4.94)
[2017-05-15 07:50] VITALS: BP 168/81
[2017-05-15] MEDS: TRIAMTERENE/HCTZ 75-50 (MAXZIDE,DYAZIDE) TABLET PO SCH (07:58)
[2017-05-15] MEDS: doxAzosin 2 MG (CARDURA) TAB PO SCH (07:58)
[2017-05-15] MEDS ORDERED: KCL 20 MEQ TAB (K-DUR) PO NR (08:45)
--- NOTE | 2017-05-15 08:45 | Progress Note (SOAP) ---
Subjective Subjective/Events-last exam Patient reports everyday she's feeling a little bit better. She still does complain of tiredness. She has not been doing that much on her feet in terms of ambulation other than in the room. Review of Systems Date Seen by Provider: May 15, 2017 Time Seen by Provider: 07:30 Objective Exam Last Set of Vital Signs Vital Signs Date Time Temp Pulse Resp B/P (MAP) Pulse Ox O2 Delivery O2 Flow Rate FiO2 05/15/17 07:00 48 05/15/17 04:00 98.1 20 147/71 (96) 95 Room Air 05/14/17 09:00 1.00 Capillary Refill : Less Than 3 Seconds I&O Intake and Output 05/15/17 00:00 Intake Total 2570 ml Balance 2570 ml Intake Oral 1570 ml IV Total 1000 ml # Voids 6 # Bowel Movements 1 General: No Acute Distress Neck: Supple Lungs: Clear to Auscultation Heart: Regular Rate Abdomen: Soft Skin: No Rashes Psych/Mental Status: Mental Status NL Results/Procedures Lab Laboratory Tests 05/15/17 05:32: Sodium Level 139, Potassium Level 2.8L, Chloride Level 105, Carbon Dioxide Level 24, Anion Gap 10, Blood Urea Nitrogen 11, Creatinine 0.99, Estimat Glomerular Filtration Rate 55, BUN/Creatinine Ratio 11, Glucose Level 99, Calcium Level 8.2L, Thyroid Stimulating Hormone (TSH) 107.91H Microbiology 05/12/17 MRSA Screen - Final, Complete MRSA not isolated 05/13/17 Urine Culture - Preliminary, Resulted Nonenterococcus (Chains Cocci) Radiology Head CT 05/12- changes consistent with small vessel ischemic disease, generalized volume loss, chronic right maxillary sinusitis Chest/abdomen/pelvis CT 05/12- no acute abnormalities CXR 05/12- minimal vascular congestion Assessment/Plan Assessment/Plan Admission Dx (1) Myxedema Status: Acute Assessment & Plan: TSH 169 on admission, down to 132 after 200 mcg IV levothyroxine in ER. Was not taking levothyroxine for 3 months or more. Continue IV synthroid 75 mcg daily until clinical condition improved then resume home oral 05/14 Will switch to oral Synthroid today. Plan on checking TSH in the morning. 05/15 TSH lowered. She will need this rechecked in the outpatient setting. -Appears to be tolerating the 125 microgram dosage daily. -We'll continue with physical therapy (2) Hypertension Status: Chronic Assessment & Plan: Resume home HCTZ/triamterene and doxasozin, hold diltiazem for now given bradycardia Qualifiers: Qualified Codes: I10 - Essential (primary) hypertension (3) Bradycardia Status: Acute Assessment & Plan: Secondary to hypothyroidism Monitor on telemetry (4) Depression Status: Acute Assessment & Plan: Discussed outpatient resources including counseling and medications, will connect with on d/c. Unclear how much depressive symptoms may improve with treatment of thyroid. (5) Sleep apnea Status: Chronic Assessment & Plan: Recommend bringing home cpap Qualifiers: Qualified Codes: G47.33 - Obstructive sleep apnea (adult) (pediatric) (6) Acute renal insufficiency Status: Acute Assessment & Plan: Secondary to poor intake Improving this am with IVF, continue NS and encourage PO intake, hold home torsemide 05/14 Much improved today with creatinine of 1.1. (7) Hypokalemia Status: Acute Assessment & Plan: Replace and recheck 05/14 Continue with replacement of potassium 05/15 Continue with replacement of potassium and recheck BMP in the morning (8) Osteoarthritis Status: Chronic Assessment & Plan: Holding home diclofenac due to renal insufficiency, holding home gabapentin due to lethargy on admission and holding home duloxetine to avoid arrhythmias Qualifiers: Qualified Codes: M15.0 - Primary generalized (osteo)arthritis (9) GERD (gastroesophageal reflux disease) Status: Chronic Assessment & Plan: Resume home pantoprazole (10) DVT prophylaxis Status: Acute Assessment & Plan: Enoxaparin and SCDs (11) Discharge planning issues Status: Acute Assessment & Plan: Transfer to floor today, anticipate d/c when eating and drinking well and safely ambulating Clinical Quality Measures DVT/VTE Risk/Contraindication: Risk Factor Score Per Nursin RFS Level Per Nursing on Admit: 2=Moderate SHABNAM ORNELAS MD May 15, 2017 08:45
[2017-05-15] MEDS ORDERED: LEVOTHYROXINE 100 MCG INJ (SYNTHROID) VIAL IV SCH (09:00)
[2017-05-15 11:46] VITALS: BP 158/74
[2017-05-15 16:27] VITALS: BP 177/83
[2017-05-15 20:00] VITALS: BP 161/78
[2017-05-16] VITALS: BP 165/81
[2017-05-16 03:56] VITALS: BP 164/78
[2017-05-16 05:56] LABS: CALCIUM 8.3 MG/DL (8.5-10.1); CREATININE SERUM 0.95 MG/DL (0.60-1.30); POTASSIUM 3.2 MMOL/L (3.6-5.0)
[2017-05-16] MEDS: LEVOTHYROXINE 125 MCG (LEVOTHROID) TABLET PO SCH (06:46)
[2017-05-16] MEDS: PANTOPRAZOLE 40 MG (PROTONIX) TAB PO SCH (07:08)
[2017-05-16 08:59] VITALS: BP 181/88
[2017-05-16] MEDS: POTASSIUM CL 10MEQ/50ML IVPB 50 ML IV SCH ×4 (09:29→12:20)
[2017-05-16] MEDS: doxAzosin 2 MG (CARDURA) TAB PO SCH (09:29)
[2017-05-16] MEDS: TRIAMTERENE/HCTZ 75-50 (MAXZIDE,DYAZIDE) TABLET PO SCH (09:29)
--- NOTE | 2017-05-16 09:40 | Progress Note-Hospitalist ---
Progress Note Progress Notes/Assess & Plan Date Seen 05/16/17 Time Seen by Provider: 09:00 Diagonsis/Assessment & Plan Pt doing well overall but very weak and did not sleep last night. She "does not feel safe at home being this weak" so will order PT/OT and SB versus IRF. Denies pain Eating and drinking well. + BM AFVSS, Pleasant, flat affect RRR, CTAB No edema Laboratory Tests 05/16/17 05:10 Assessment: (1) Myxedema Status: Acute Assessment & Plan: TSH 169 on admission, down to 132 after 200 mcg IV levothyroxine in ER. Was not taking levothyroxine for 3 months or more. Continue IV synthroid 75 mcg daily until clinical condition improved then resume home oral (2) Hypertension Status: Chronic Assessment & Plan: Resume home HCTZ/triamterene and doxasozin, hold diltiazem for now given bradycardia Qualifiers: Qualified Codes: I10 - Essential (primary) hypertension (3) Bradycardia Status: Acute Assessment & Plan: Secondary to hypothyroidism DC telemetry now (4) Depression Status: Acute Assessment & Plan: Discussed outpatient resources including counseling and medications, will connect with on d/c. Unclear how much depressive symptoms may improve with treatment of thyroid. (5) Sleep apnea Status: Chronic Assessment & Plan: Recommend bringing home cpap Qualifiers: Qualified Codes: G47.33 - Obstructive sleep apnea (adult) (pediatric) (6) Acute renal insufficiency Status: Acute Assessment & Plan: Secondary to poor intake Improving this am with IVF, continue NS and encourage PO intake, hold home torsemide (7) Hypokalemia Status: Acute Assessment & Plan: Replace and recheck (8) Osteoarthritis Status: Chronic Assessment & Plan: Holding home diclofenac due to renal insufficiency, holding home gabapentin due to lethargy on admission and holding home duloxetine to avoid arrhythmias Qualifiers: Qualified Codes: M15.0 - Primary generalized (osteo)arthritis (9) GERD (gastroesophageal reflux disease) Status: Chronic Assessment & Plan: Resume home pantoprazole (10) DVT prophylaxis Status: Acute Assessment & Plan: Enoxaparin and SCDs (11) Discharge planning issues Status: Acute Assessment & Plan: Pt does not feel safe at home alone so ordered SB versus IRF ALISHA TRIPLETT DO May 16, 2017 09:40
--- NOTE | 2017-05-16 10:53 | Physical Therapy Evaluation ---
PT Evaluation-General Medical Diagnosis Admission Date May 12, 2017 at 21:17 Medical Diagnosis: ARF; Myxedema Stupor Onset Date: May 12, 2017 Therapy Diagnosis Therapy Diagnosis: generalized weakness/debility Height/Weight Height (Feet): 5 Height (Inches): 5.50 Weight (Pounds): 159 Weight (Ounces): 4.0 Precautions Precautions/Isolations: Standard Precautions Weight Bear Status Right Lower Extremity: Right Full Weight Bearing Left Lower Extremity: Left Full Weight Bearing Referral Physician: Jorge Reason for Referral: Evaluation/Treatment Medical History Pertinent Medical History: HTN, Hypothroidism, Neuropathy, Rheumatoid Arthritis Current History ER via family reporting she was not eating, drinking or taking medication x 2 days Reviewed History: Yes Social History Home: Single Level Current Living Status: Other Family Prior/[facility] Prior Level of Function Functional [place] Measure 0=Not Assessed/NA 4=Minimal Assistance 1=Total Assistance 5=Supervision or Setup 2=Maximal Assistance 6=Modified [place] 3=Moderate Assistance 7=Complete [place] Bed Mobility: 6 Transfers (B,C,W/C) (FIM): 6 Gait: 6 uses cane at home; has FWW for use PT Evaluation-Current Subjective Patient is in bed and agrees to PT. Pain Numeric Pain Scale: 0-No Pain Location: No Pain Reported Objective Patient Orientation: Normal For Age Problem Solving: Fair Attachments: IV ROM/Strength ROM Lower Extremities bilateral LE WNL Strength Lower Extremities right knee flexion/extension 4/5; hip flexion 4/5; DF/PF 4/5 left knee flexion/extension 4/5; hip flexion 4/5; DF/PF 4/5 Integumentary/Posture Integumentary refer to nursing notes Bowel Incontinence: No Bladder Incontinence: No Posture WNL Neuromuscular (Tone, Coordination, Reflexes) grossly intact Sensory Vision: Functional Hearing: Functional Sensation Right Lower Extremit: Impaired Sensation Left Lower Extremity: Impaired Transfers Functional [place] Measure 0=Not Assessed/NA 4=Minimal Assistance 1=Total Assistance 5=Supervision or Setup 2=Maximal Assistance 6=Modified [place] 3=Moderate Assistance 7=Complete [place] Transfers (B, C, W/C) (FIM): 5 Scootin Rollin Supine to/from Sit: 6 Sit to/from Stand: 5 Gait Mode of Locomotion: Walk Anticipated Mode of Locomotion: Walk Gait (FIM): 5 Distance (FIM): 3=150 ft Distance: 225' Gait Level of Assist: 5 Gait Assistive Device: FWW Comments/Gait Description very slow rosa/functional gait sequence Balance Sitting Static: Normal Sitting Dynamic: Normal Standing Static: Normal Standing Dynamic: Normal Assessment/Needs 71 y.o. female, will benefit from skilled PT to address functional strength and mobility to improve current LOF and to safely return to home with family at maximum LOF. Rehab Potential: Good PT General Production Laborer Goals General Production Laborer Goals PT General Production Laborer Goals Time Frame: May 27, 2017 Transfers (B,C,W/C) (FIM): 6 Gait (FIM): 6 Gait distance (FIM): 3=150 ft Distance: 250 Gait Level of Assist: 6 Gait Assistive Device: FWW, Cane Single Point PT Plan Problem List Problem List: Activity Tolerance, Balance, Gait Treatment/Plan Treatment Plan: Continue Plan of Care Treatment Plan: Bed Mobility, Education, Functional Activity [place], Functional Strength, Gait, Safety, Therapeutic Exercise, Transfers Treatment Duration: May 27, 2017 Frequency: 6 times per week Estimated Hrs Per Day: .5 hour per day Patient and/or Family Agrees t: Yes Safety Risks/Education Patient Education: Safety Issues Teaching Recipient: Patient Teaching Methods: Demonstration, Discussion Response to Teaching: Verbalize Understanding, Return Demonstration Discharge Recommendations Therapy D/C Recommendations: Home w/ Family Support Time/GCodes Time In: 1016 Time Out: 1036 Total Billed Treatment Time: 20 Total Billed Treatment 1 visit EVModC 20 min G Codes Necessary: DONG Estevez PT May 16, 2017 10:53
[2017-05-16 12:00] VITALS: BP 170/97
--- NOTE | 2017-05-16 12:11 | Occupational Therapy Eval ---
OT Evaluation-General/PLF Medical Diagnosis Admission Date May 12, 2017 at 21:17 Medical Diagnosis: ARF; Myxedema Stupor Onset Date: May 12, 2017 Therapy Diagnosis Therapy Diagnosis: Weakness Height/Weight Height (Feet): 5 Height (Inches): 5.50 Weight (Pounds): 159 Weight (Ounces): 4.0 Precautions Precautions/Isolations: Standard Precautions Safety Interventions: None Weight Bear Status Weight Bearing Restriction: Weight Bearing/Tolerated Referral Physician: Cassi Referral Reason: Activity Tolerance, Self Care, Strengthening/ROM Medical History Pertinent Medical History: HTN, Hypothroidism, Neuropathy, Rheumatoid Arthritis Additional Medical History Colonoscopy, O2 at night, DDD Current History Pt. was not eating or drinking or taking meds for two days. Family brought pt. in. Social History Home: Single Level Current Living Status: Alone Entry Into Home: Stairs With Railing Steps Into Home: 2 ADL-Prior Level of Function ADL PLOF Comments Pt. states that previous to this hospitalization, she was independent with daily tasks. Her sisters are supportive and take her places. DME/Equipment Comments Pt. states that she has a whirlpool tub that she "can sometimes get into." States that she does not have a tub seat. Has a walker but does not use it. Uses a cane. Drive Self: No OT Current Status Subjective No pain reported. Pt. states that she feels "better," Just "weak" because of being in bed for several days. Appearance Pt. is up in chair. Agrees to spongebathe with OT assist. Pt. is finishing up IV. Mental Status/Objective Patient Orientation: Person, Place Attachments: IV Current Hand Dominance: Right Upper Extremity ROM Pt. demonstrates approximately 75 degrees shoulder flexion in bilateral shoulders actively, and full AROM in all other joints. Upper Extremity Strength 2+/5 shoulders 3+/5 all other joints. Edema: Pt. does exhibit some swelling in bilateral hands. ADL-Treatment Functional [place] Measure 0=Not Assessed/NA 4=Minimal Assistance 1=Total Assistance 5=Supervision or Setup 2=Maximal Assistance 6=Modified [place] 3=Moderate Assistance 7=Complete IndependenceIRFPAI Quality Coding Scale 6 Independent with activity with or without an assistive device 5 Patient requires set up or clean up by helper. Patient completes activity by themselves 4 Supervision or touching assist (CGA). Max provide cues , steadying assist 3 The helper provides less than half the effort to complete the activity 2 The helper provides more than half the effort to complete the activity 1 Dependent. The helper does all the effort to complete an activity 7 Patient refused to complete or attempt activity 9 The patient did not perform the activity before the current illness or injury 88 Not attempted due to Medical conditions or safety concerns Grooming (FIM): 5 (Pt. is able to wash face with set up.) Bathing (FIM): 3 (Pt. requires steadying assist in stance to wash adriana area, and full assist to wash feet. States that this was difficult for her at home.) Lower Body Dressing (FIM): 2 (Pt. is unable to get pants over feet, or socks onto feet. States that she used her cane at home. Is able to pull pants and underwear over her hips, but requires steadying assist for balance.) Transfers (B, C, W/C) (FIM): 4 (Min assist for sit-stand.) Education OT Patient Education: Correct positioning, Modified ADL techniques, Progress toward Goal/Update tx plan, Purpose of tx/functional activities, Reviewed precautions, Rehab process, Transfer techniques Teaching Recipient: Patient Teaching Methods: Demonstration, Discussion Response to Teaching: Verbalize Understanding, Return Demonstration OT Short Term Goals Short Term Goals Time Frame: May 23, 2017 Eating(FIM): 5 Grooming(FIM): 5 Bathing(FIM): 5 Upper Body Dressing(FIM): 5 Lower Body Dressing(FIM): 5 Toileting(FIM): 5 Transfers (B,C,W/C) (FIM): 5 Toilet/Commode Transfer(FIM): 5 Shower Transfer(FIM): 4 Additional Short Term Goals: 1-Demonstrate ADL Tasks, 2-Verbalize Understanding , 3-ImproveStrength/[place] 1=Demonstrate adherence to instructed precautions during ADL tasks. 2=Patient will verbalize/demonstrate understanding of assistive devices/ modifications for ADL. 3=Patient will improve strength/tolerance for activity to enable patient to perform ADL's. OT Improvement Analyst Goals Shelter Goals Time Frame: May 30, 2017 Eating (FIM): 6 Grooming(FIM): 6 Bathing(FIM): 5 Upper Body Dressing(FIM): 6 Lower Body Dressing(FIM): 6 Toileting(FIM): 6 Transfers (B,C,W/C) (FIM): 6 Toilet/Commode Transfer(FIM): 6 Shower Transfer(FIM): 5 Additional Goals: 1-Demonstrate ADL Tasks, 2-Verbalize Understanding, 3- ImproveStrength/[place] 1=Demonstrate adherence to instructed precautions during ADL tasks. 2=Patient will verbalize/demonstrate understanding of assistive devices/ modifications for ADL. 3=Patient will improve strength/tolerance for activity to enable patient to perform ADL's. OT Education/Plan Problem List/Assessment Assessment: Decreased Activ Tolerance, Decreased UE Strength, Dependent Transfers, Impaired Bed Mobility, Impaired Funct Balance, Impaired I ADL's, Impaired Self-Care Skills, Restricted Funct UE ROM Discharge Recommendations Plan/Recommendations: Continue POC Therapy D/C Recommendations: Acute Rehab Equpiment Recommendations-D/C: Bath Chair, Hip Kit Target Placement Acute rehab and then to her home. Treatment Plan/Plan of Care Treatment,Training & Education: Yes Patient would benefit from OT for education, treatment and training to promote independence in ADL's, mobility, safety and/or upper extremity function for ADL' s. Plan of Care: ADL Retraining, Functional Mobility, UE Funct Exercise/Act Treatment Duration: May 30, 2017 Frequency: 5 times per week Estimated Hrs Per Day: .5 hour per day Agreement: Yes Rehab Potential: Good Time/GCodes Start Time: 11:25 Stop Time: 12:00 Total Time Billed (hr/min): 35 Billed Treatment Time 1, EVM x 15minutes, ADL x 20minutes RODNEY SON OT May 16, 2017 12:11
[2017-05-16 16:06] VITALS: BP 171/85
[2017-05-17 00:25] VITALS: BP 170/82
[2017-05-17 06:04] LABS: BASOPHILS # (AUTO) 0.1 10^3/uL (0.0-0.1); BASOPHILS % (AUTO) 1 % (0-10); EOSINOPHILS # (AUTO) 0.2 10^3/uL (0.0-0.3); EOSINOPHILS % (AUTO) 3 % (0-10); LYMPHOCYTES # (AUTO) 2.4 X 10^3 (1.0-4.0); LYMPHOCYTES % (AUTO) 40 % (12-44); MEAN CORPUSCULAR HEMOGLOBIN 29 PG (25-34); MEAN CORPUSCULAR HGB CONC 33 G/DL (32-36); MEAN CORPUSCULAR VOLUME 88 FL (80-99); MEAN PLATELET VOLUME 12.4 FL (7.4-10.4); MONOCYTES # (AUTO) 0.4 X 10^3 (0.0-1.0); MONOCYTES % (AUTO) 6 % (0-12); NEUTROPHILS # (AUTO) 3.1 X 10^3 (1.8-7.8); NEUTROPHILS % (AUTO) 50 % (42-75); PLATELET COUNT 152 10^3/uL (130-400); RED BLOOD COUNT 4.55 10^6/uL (4.35-5.85); RED CELL DISTRIBUTION WIDTH 16.4 % (10.0-14.5); WHITE BLOOD COUNT 6.1 10^3/uL (4.3-11.0)
[2017-05-17 06:27] LABS: ALANINE AMINOTRANSFERASE 18 U/L (0-55); ALBUMIN 3.5 GM/DL (3.2-4.5); ANION GAP 11 MMOL/L (5-14); ASPARTATE AMINO TRANSFERASE 19 U/L (5-34); BILIRUBIN,TOTAL 0.4 MG/DL (0.1-1.0); BLOOD UREA NITROGEN 7 MG/DL (7-18); BUN/CREATININE RATIO 8; CALCIUM 8.8 MG/DL (8.5-10.1); CARBON DIOXIDE 23 MMOL/L (21-32); CHLORIDE 104 MMOL/L (98-107); CREATININE SERUM 0.88 MG/DL (0.60-1.30); GFR ESTIMATED > 60; GLUCOSE 96 MG/DL (70-105); POTASSIUM 3.1 MMOL/L (3.6-5.0); SODIUM 138 MMOL/L (135-145)
[2017-05-17 07:17] VITALS: BP 152/76
[2017-05-17] MEDS: LEVOTHYROXINE 125 MCG (LEVOTHROID) TABLET PO SCH (07:21)
[2017-05-17] MEDS: PANTOPRAZOLE 40 MG (PROTONIX) TAB PO SCH (07:21)
[2017-05-17] MEDS ORDERED: KCL 20 MEQ TAB (K-DUR) PO SCH (09:00)
[2017-05-17] MEDS ORDERED: amLODIPine 5 MG (NORVASC) TAB PO SCH (09:00)
--- NOTE | 2017-05-17 09:40 | Discharge Summary-Hospitalist ---
Diagnosis/Chief Complaint Date of Admission May 12, 2017 at 21:17 Date of Discharge Discharge Diagnosis Pt doing well overall but very weak and did not sleep much last night again. She "does not feel safe at home being this weak" so will order PT/OT and SB versus IRF. Not decided on NHP or IRU as of yet Denies pain Eating and drinking well. + BM on record but she reports still feeling constipated Motivation is an issue to get her up and around since she is in bed sleeping every time I see her AFVSS, Pleasant, flat affect, very difficult to motivate RRR, CTAB No edema Laboratory Tests 05/16/17 05:10 Assessment: (1) Myxedema Status: Acute Assessment & Plan: TSH 169 on admission, down to 132 after 200 mcg IV levothyroxine in ER. Was not taking levothyroxine for 3 months or more. Continue IV synthroid 75 mcg daily until clinical condition improved then resume home oral (2) Hypertension Status: Chronic Assessment & Plan: Resume home HCTZ/triamterene and doxasozin, hold diltiazem for now given bradycardia and added Norvasc at DC Qualifiers: Qualified Codes: I10 - Essential (primary) hypertension (3) Bradycardia Status: Acute Assessment & Plan: Secondary to hypothyroidism DC telemetry now (4) Depression Status: Acute Assessment & Plan: Discussed outpatient resources including counseling and medications, will connect with on d/c. Unclear how much depressive symptoms may improve with treatment of thyroid. (5) Sleep apnea Status: Chronic Assessment & Plan: Recommend bringing home cpap Qualifiers: Qualified Codes: G47.33 - Obstructive sleep apnea (adult) (pediatric) (6) Acute renal insufficiency Status: Acute Assessment & Plan: Secondary to poor intake Improving this am with IVF, continue NS and encourage PO intake, hold home torsemide (7) Hypokalemia Status: Acute Assessment & Plan: Replace and recheck (8) Osteoarthritis Status: Chronic Assessment & Plan: Holding home diclofenac due to renal insufficiency, holding home gabapentin due to lethargy on admission and holding home duloxetine to avoid arrhythmias Qualifiers: Qualified Codes: M15.0 - Primary generalized (osteo)arthritis (9) GERD (gastroesophageal reflux disease) Status: Chronic Assessment & Plan: Resume home pantoprazole (10) DVT prophylaxis Status: Acute Assessment & Plan: Enoxaparin and SCDs (11) Discharge planning issues Status: Acute Assessment & Plan: Pt does not feel safe at home alone so ordered SB versus IRF and patient has not decided yet but can't really ambulate on her own and get out of bed to get motivated to get better so shelter prognosis is guarded (1) Myxedema Status: Acute Assessment & Plan: TSH 169 on admission, down to 132 after 200 mcg IV levothyroxine in ER. Was not taking levothyroxine for 3 months or more. Continue IV synthroid 75 mcg daily until clinical condition improved then resume home oral (2) Hypertension Status: Chronic Assessment & Plan: Resume home HCTZ/triamterene and doxasozin, hold diltiazem for now given bradycardia (3) Bradycardia Status: Acute Assessment & Plan: Secondary to hypothyroidism Monitor on telemetry (4) Depression Status: Acute Assessment & Plan: Discussed outpatient resources including counseling and medications, will connect with on d/c. Unclear how much depressive symptoms may improve with treatment of thyroid. (5) Sleep apnea Status: Chronic Assessment & Plan: Recommend bringing home cpap (6) Acute renal insufficiency Status: Acute Assessment & Plan: Secondary to poor intake Improving this am with IVF, continue NS and encourage PO intake, hold home torsemide (7) Hypokalemia Status: Acute Assessment & Plan: Replace and recheck (8) Osteoarthritis Status: Chronic Assessment & Plan: Holding home diclofenac due to renal insufficiency, holding home gabapentin due to lethargy on admission and holding home duloxetine to avoid arrhythmias (9) GERD (gastroesophageal reflux disease) Status: Chronic Assessment & Plan: Resume home pantoprazole (10) DVT prophylaxis Status: Acute Assessment & Plan: Enoxaparin and SCDs (11) Discharge planning issues Status: Acute Assessment & Plan: Transfer to floor today, anticipate d/c when eating and drinking well and safely ambulating Discharge Summary Discharge Physical Examination Allergies: Coded Allergies: amoxicillin (Verified Allergy, Mild, 10/10/16) Penicillins (Verified Allergy, Unknown, 07/05/11) diphenhydramine HCl (Verified Allergy, Unknown, 05/15/14) Vitals & I&Os Vital Signs Date Time Temp Pulse Resp B/P (MAP) Pulse Ox O2 Delivery O2 Flow Rate FiO2 05/17/17 07:17 98.0 53 20 152/76 (101) 96 Room Air 05/14/17 09:00 1.00 Hospital Course Hospital course: Patient had a lengthy hospital course she was admitted diagnosed with myxedema coma since she had not taken her thyroid for the past 3 months. She responded rapidly to thyroid supplementation and overall improved immensely as the days ensue. Very difficult to get patient motivate to get out of bed and the concern of being unable to manage at home alone was discussed and inpatient rehabilitation evaluated the patient accepted her but pending the patient's approval in agreement after she speaks with her sister. I added Norvasc due to hypertension [id number] but holding diltiazem due to bradycardia from myxedema status. Overall she did well improved enough for disposition on 05/17/17. Labs (last 24 hrs) Laboratory Tests 05/17/17 05:35: White Blood Count 6.1, Red Blood Count 4.55, Hemoglobin 13.3, Hematocrit 40, Mean Corpuscular Volume 88, Mean Corpuscular Hemoglobin 29, Mean Corpuscular Hemoglobin Concent 33, Red Cell Distribution Width 16.4H, Platelet Count 152, Mean Platelet Volume 12.4H, Neutrophils (%) (Auto) 50, Lymphocytes (%) (Auto) 40 , Monocytes (%) (Auto) 6, Eosinophils (%) (Auto) 3, Basophils (%) (Auto) 1, Neutrophils # (Auto) 3.1, Lymphocytes # (Auto) 2.4, Monocytes # (Auto) 0.4, Eosinophils # (Auto) 0.2, Basophils # (Auto) 0.1, Sodium Level 138, Potassium Level 3.1L, Chloride Level 104, Carbon Dioxide Level 23, Anion Gap 11, Blood Urea Nitrogen 7, Creatinine 0.88, Estimat Glomerular Filtration Rate > 60, BUN/ Creatinine Ratio 8, Glucose Level 96, Calcium Level 8.8, Total Bilirubin 0.4, Aspartate Amino Transf (AST/SGOT) 19, Alanine Aminotransferase (ALT/SGPT) 18, Alkaline Phosphatase 45, Total Protein 6.0L, Albumin 3.5 Microbiology 05/12/17 MRSA Screen - Final, Complete MRSA not isolated 05/13/17 Urine Culture - Final, Complete Nonenterococcus (Chains Cocci) Pending Labs Laboratory Tests 05/17/17 05:35: White Blood Count 6.1, Red Blood Count 4.55, Hemoglobin 13.3, Hematocrit 40, Mean Corpuscular Volume 88, Mean Corpuscular Hemoglobin 29, Mean Corpuscular Hemoglobin Concent 33, Red Cell Distribution Width 16.4, Platelet Count 152, Mean Platelet Volume 12.4, Neutrophils (%) (Auto) 50, Lymphocytes (%) (Auto) 40 , Monocytes (%) (Auto) 6, Eosinophils (%) (Auto) 3, Basophils (%) (Auto) 1, Neutrophils # (Auto) 3.1, Lymphocytes # (Auto) 2.4, Monocytes # (Auto) 0.4, Eosinophils # (Auto) 0.2, Basophils # (Auto) 0.1, Sodium Level 138, Potassium Level 3.1, Chloride Level 104, Carbon Dioxide Level 23, Anion Gap 11, Blood Urea Nitrogen 7, Creatinine 0.88, Estimat Glomerular Filtration Rate > 60, BUN/ Creatinine Ratio 8, Glucose Level 96, Calcium Level 8.8, Total Bilirubin 0.4, Aspartate Amino Transf (AST/SGOT) 19, Alanine Aminotransferase (ALT/SGPT) 18, Alkaline Phosphatase 45, Total Protein 6.0, Albumin 3.5 Discharge Home Medications: Active Scripts Active Synthroid (Levothyroxine Sodium) 125 Mcg Tablet 125 Mcg PO DAILY@0630 60 Days Amlodipine Besylate 5 Mg Tablet 5 Mg PO DAILY 60 Days Reported Diltiazem ER (Diltiazem HCl) 300 Mg Tab.er.24h 300 Mg PO DAILY LAST FILLED #30 08-27-16 Diclofenac Sodium 100 Gm Gel..gram. TOP TID PRN LAST FILLED 09-13-16 Aspirin EC (Aspirin) 81 Mg Tablet. 81 Mg PO DAILY Levothyroxine Sodium 200 Mcg Tablet 200 Mcg PO DAILY LAST FILLED #30 12-31-16 Duloxetine HCl 60 Mg Capsule.dr 60 Mg PO DAILY LAST FILLED #30 01-25-17 Torsemide 20 Mg Tablet 40 Mg PO DAILY LAST FILLED #60 01-25-17 TAKES 2 (20MG) TABLETS Triamterene-Hctz 37.5-25 mg Tb (Triamterene/Hydrochlorothiazid) 1 Each Tablet 1 Tab PO DAILY LAST FILLED #30 01-25-17 Doxazosin Mesylate 2 Mg Tablet 2 Mg PO DAILY LAST FILLED #30 01-25-17 Potassium Chloride 20 Meq Tablet.er 20 Meq PO DAILY LAST FILLED #30 01-25-17 Pantoprazole Sodium 40 Mg Tablet.dr 40 Mg PO DAILY LAST FILLED 10-18-16 #60 Gabapentin 400 Mg Capsule 400 Mg PO TID LAST FILLED 08-27-16 #90 Instructions to patient/family Please see electronic discharge instructions given to patient. Clinical Quality Measures DVT/VTE Risk/Contraindication: Risk Factor Score Per Nursin RFS Level Per Nursing on Admit: 2=Moderate Problem Qualifiers (1) Hypertension: Hypertension type: essential hypertension Qualified Codes: I10 - Essential ( primary) hypertension (2) Sleep apnea: Sleep apnea type: obstructive Qualified Codes: G47.33 - Obstructive sleep apnea (adult) (pediatric) (3) Osteoarthritis: Osteoarthritis location: multiple joints Osteoarthritis type: primary Qualified Codes: M15.0 - Primary generalized (osteo)arthritis ALISHA TRIPLETT DO May 17, 2017 09:40
[2017-05-17] MEDS ORDERED: LEVO125T PO (09:43)
[2017-05-17] MEDS ORDERED: AMLO5TAB2 PO (09:43)
[2017-05-17] MEDS: TRIAMTERENE/HCTZ 75-50 (MAXZIDE,DYAZIDE) TABLET PO SCH (09:57)
[2017-05-17] MEDS: doxAzosin 2 MG (CARDURA) TAB PO SCH (10:02)
--- NOTE | 2017-05-17 13:31 | Discharge Inst-Skilled Nursing ---
Discharge Inst-Skilled NF Patient Instructions Patient Problems: Myxedema/Hypothyoidism Goal: Return to independent living Consult/Follow Up/Orders Follow up appt.: [facility] fci rounds Skilled NF Admit to: [facility] Certifications SNF I certify that SNF services are required to be given on an inpatient basis because of the above named patient's need for fpc care on a continuing basis for the conditions(s) for which he/she was receiving inpatient hospital services prior to his/her transfer to the SNF. Snf Facility Order: Nursing Services, Senior Communications Engineer-Evaluate & Treat, Physical Therapy-Evaluate & Treat, Speech Language-Evaluate & Treat Discharge Diet: No Restrictions Daily Activity as Tolerated: Yes New & Resume Previous Orders Pneu Vac Indicated: Yes Discharge Medications New, Converted or Re-Newed RX: RX on Chart New Medications: Amlodipine Besylate (Amlodipine Besylate) 5 Mg Tablet 5 MG PO DAILY for 60 Days, TAB Levothyroxine Sodium (Synthroid) 125 Mcg Tablet 125 MCG PO DAILY@0630 for 60 Days, TAB Continued Medications: Aspirin (Aspirin EC) 81 Mg Tablet.dr 81 MG PO DAILY, TAB Diclofenac Sodium (Diclofenac Sodium) 100 Gm Gel..gram. TOP TID PRN for ARTHRITIS PAIN, EA LAST FILLED 09-13-16 Doxazosin Mesylate (Doxazosin Mesylate) 2 Mg Tablet 2 MG PO DAILY, TAB LAST FILLED #30 01-25-17 Duloxetine HCl (Duloxetine HCl) 60 Mg Capsule.dr 60 MG PO DAILY, CAP LAST FILLED #30 01-25-17 Gabapentin (Gabapentin) 400 Mg Capsule 400 MG PO TID, CAP LAST FILLED 08-27-16 #90 Pantoprazole Sodium (Pantoprazole Sodium) 40 Mg Tablet.dr 40 MG PO DAILY, TAB LAST FILLED 10-18-16 #60 Potassium Chloride (Potassium Chloride) 20 Meq Tablet.er 20 MEQ PO DAILY, TAB LAST FILLED #30 01-25-17 Triamterene/Hydrochlorothiazid (Triamterene-Hctz 37.5-25 mg Tb) 1 Each Tablet 1 TAB PO DAILY, TAB LAST FILLED #30 01-25-17 Discontinued Medications: Diltiazem HCl (Diltiazem ER) 300 Mg Tab.er.24h 300 MG PO DAILY, TAB LAST FILLED #30 08-27-16 Levothyroxine Sodium (Levothyroxine Sodium) 200 Mcg Tablet 200 MCG PO DAILY, TAB LAST FILLED #30 12-31-16 Torsemide (Torsemide) 20 Mg Tablet 40 MG PO DAILY, TAB LAST FILLED #60 01-25-17 TAKES 2 (20MG) TABLETS Geraldine Ye May 17, 2017 13:28 GERALDINE YE DO May 17, 2017 13:31
[2017-05-17 15:59] VITALS: BP 148/70
== END 2017-05-17 15:00 | DRG 81 ==
LOC: EDUNIT# 17:08 → ER 17:10 → ICU 21:17 → 4TH 05-13 20:15
PROVIDERS: ADMIT Family Medicine; ATTEND Family Medicine
DX: E03.5 Myxedema coma (principal); N28.9 Disorder of kidney and ureter, unspecified; I10 Essential (primary) hypertension; R00.1 Bradycardia, unspecified; F32.9 Major depressive disorder, single episode, unspecified; K59.00 Constipation, unspecified; G47.33 Obstructive sleep apnea (adult) (pediatric); E87.6 Hypokalemia; Z23 Encounter for immunization; J32.0 Chronic maxillary sinusitis; M15.0 Primary generalized (osteo)arthritis; K21.9 Gastro-esophageal reflux disease without esophagitis; E89.0 Postprocedural hypothyroidism; M06.9 Rheumatoid arthritis, unspecified; G62.9 Polyneuropathy, unspecified; M54.9 Dorsalgia, unspecified; R63.4 Abnormal weight loss; Z91.120 Patient's intentional underdosing of medication regimen due to financial hardship; Z87.11 Personal history of peptic ulcer disease; Z86.19 Personal history of other infectious and parasitic diseases; Z90.49 Acquired absence of other specified parts of digestive tract; Z87.01 Personal history of pneumonia (recurrent); Z86.39 Personal history of other endocrine, nutritional and metabolic disease; Z87.09 Personal history of other diseases of the respiratory system
CPT/HCPCS: 36415; 70450; 71010; 71250; 74176; 80048; 80053; 81000; 83036; 83690; 83735; 83880; 84100; 84439; 84443; 84484; 85025; 85610; 87081; 87088; 96361; 96374

== ENCOUNTER → 2018-06-15 | Outpatient (CLI) | payer MEDICARE ==
[~2018-06-15] MED LIST changes: +AMLO5TAB7 PO; +DICL100G31 TOP; +DOXA2TAB2 PO; +LEVO125T PO; +LEVO200T6 PO; +POTA-51 PO; +TORS20TA3 PO; +TRIA1TAB3 PO
--- NOTE | 2018-06-15 12:38 | Diagnostic Imaging Report ---
INDICATION: Postmenopausal screening for osteoporosis. COMPARISON: None. FINDINGS: AP Spine L1-L4: [BMD (g/cm2): 1.299] [T-Score: 0.8] [Z-Score: 1.7] [BMD Previous: N/A] [BMD % Change: N/A] LT Hip Neck: [BMD (g/cm2): 0.682] [T-Score: -2.6] [Z-Score: -1.4] LT Hip Total: [BMD (g/cm2):0.906] [T-Score:-0.8] [Z-Score: 0.1] [BMD Previous: N/A] [BMD % Change: N/A] RT Hip Neck: [BMD (g/cm2):0.817] [T-Score:-1.6] [Z-Score:-0.4] RT Hip Total: [BMD (g/cm2):0.892] [T-score:-0.9] [Z-Score:0.0] [BMD Previous:N/A] [BMD % Change:N/A] *Indicates significant change from prior examination based on 95% confidence level. World Health Organization criteria for BMD interpretation classify patients as Normal (T-score at or above -1.0), Osteopenic (T-score between -1.0 and -2.5) or Osteoporotic (T-score at or below -2.5). LIMITATIONS AND MODIFICATION: None. FRACTURE RISK (FRAX SCORE): The ten year probability of (%): Major Osteoporotic Fracture: [N/A] Hip Fracture: [N/A] IMPRESSION: 1. Normal Bone mineral density. 2. Baseline examination. 3. See below National Osteoporosis Foundation guidelines on when to potentially initiate pharmacologic therapy. Based on the National Osteoporosis Foundation Guidelines, pharmacologic treatment should be initiated in any of the following, unless clinical conditions suggest otherwise: * Any patient with prior fragility fracture of the hip or vertebrae. A spine fracture indicates 5X risk for subsequent spine fracture and 2X risk for subsequent hip fracture. * Osteoporosis (T-score <-2.5). * Postmenopausal women and men age 50 and older with low bone mass/osteopenia (T-score between -1.0 and -2.5) by DXA and 10-year major osteoporotic fracture greater than 20% or a 10-year probability of hip fracture greater than 3%. These fracture risks are supplied above in the FRAX score, if applicable. * Clinician judgement and/or patient preferences may indicate treatment for people with 10-year fracture probabilities above or below these levels. Dictated by: Dictated on workstation # [id number]
== END ==
LOC: RAD 11:00
PROVIDERS: ATTEND Family Medicine
DX: Z13.820 Encounter for screening for osteoporosis (principal); Z78.0 Asymptomatic menopausal state
CPT/HCPCS: 77080

== ENCOUNTER 2018-08-21 06:00 | Outpatient (CLI) | payer MEDICARE ==
[~2018-08-21] VITALS: Ht 166.4 cm; Wt 72.2 kg
[~2018-08-21 06:00] MED LIST changes: -AMLO5TAB7 PO; +AMLO5TAB9 PO
[2018-08-21] MEDS ORDERED: MV-M1TAB38 PO (10:39)
[2018-08-21] MEDS ORDERED: DULO20CA18 PO (10:39)
[2018-08-21] MEDS ORDERED: MELO7.5T46 PO (10:39)
[2018-08-21] MEDS ORDERED: CALC1TAB PO (10:39)
[2018-08-21] MEDS ORDERED: MELA3TAB PO (10:39)
[2018-08-21] MEDS ORDERED: LEVO150T6 PO (10:39)
== END 2018-08-22 10:50 | disposition home or self-care (01) ==
LOC: PREOP 06:00
PROVIDERS: ATTEND Specialist
DX: Z01.818 Encounter for other preprocedural examination (principal)

== ENCOUNTER 2018-08-23 09:14 | Day surgery (SDC) | payer MEDICARE ==
[~2018-08-23] VITALS: Ht 166.4 cm; Wt 72.2 kg
[~2018-08-23 09:14] MED LIST changes: +CALC1TAB PO; +DULO20CA18 PO; +MELA3TAB PO; +MELO7.5T46 PO; +MV-M1TAB38 PO
[2018-08-23] MEDS ORDERED: MOXIFLOXACIN OPHTH SOLN 5 MG/ML 0.3 ML SYRINGE OP ONE (10:00)
[2018-08-23] MEDS ORDERED: POVIDONE (BETADINE) OPHTH SOLN 5% 30 ML OP ONE (10:00)
[2018-08-23] MEDS ORDERED: TIMOLOL MALEATE 0.5% 5 ML (TIMOPTIC) BTL OU PRN (10:00)
[2018-08-23] MEDS ORDERED: LIDOCAINE PF 1% 2 ML AMP IR PRN (10:00)
[2018-08-23] MEDS: TETRACAINE 0.5% OPHTH SOLN 4 ML BTL (SINGLE DOSE ONLY) OU PRN ×4 (10:06→10:26)
[2018-08-23 10:13] VITALS: BP 175/104
[2018-08-23] MEDS: CYCLOPENTOLATE 1% (CYCLOGYL) 2 ML DROPS OP SCH ×3 (10:14→10:26)
[2018-08-23] MEDS: PHENYLEPHRINE 10% OPHTH (NEO-SYN) 5 ML BTL OU SCH ×3 (10:14→10:26)
--- NOTE | 2018-08-23 11:18 | Ophthalmologist Pre-Op Note ---
Pre-Operative Progress Note H&P Reviewed The H&P was reviewed, patient examined and no changes noted. Date H&P Reviewed: Aug 23, 2018 Time H&P Reviewed: 11:18 Pre-Op Dx Cataract, Right Eye TABATHA CAO MD Aug 23, 2018 11:18
[2018-08-23] MEDS ORDERED: MIDAZOLAM 2 MG/2 ML (VERSED) VIAL ONE (11:21)
--- NOTE | 2018-08-23 11:42 | Ophthalmology Operative Report ---
Cataract removal/placement IOL PREOPERATIVE DIAGNOSIS: Cataract Right Eye POSTOPERATIVE DIAGNOSIS: Cataract Right Eye PROCEDURE: Cataract removal and placement of posterior chamber implant, right eye SURGEON: Christopher Cao ANESTHESIA: Topical with sedation COMPLICATIONS: None ESTIMATED BLOOD LOSS: Minimal DESCRIPTION OF PROCEDURE: After proper informed consent was obtained, the patient, a 72 female, was taken to the Operating Room and the right eye was anesthetized with tetracaine. The right eye was then prepped and draped in the usual manner. A wire lid speculum was placed. A paracentesis was made at the left hand position. Preservative free lidocaine was injected into the anterior chamber followed by viscoelastic. A clear corneal incision was made in the temporal position. A capsulorrhexis was preformed and the central nuclear and cortical material were removed. The posterior capsule was polished and Ryan [id number] 20.0 IOL was placed into the capsular bag. The residual viscoelastic was aspirated and balanced saline solution was injected into the anterior chamber. Moxifloxacin was injected into the anterior chamber. The wound was checked and found to be water tight. The patient tolerated the procedure well without complications. CHRISTOPHER CAO MD Aug 23, 2018 11:42
[2018-08-23 11:55] VITALS: BP 170/82
[2018-08-23] MEDS ORDERED: acetaZOLAMIDE ER 500 MG CAP (DIAMOX SEQUELS) PO ONE (12:00)
--- NOTE | 2018-08-23 13:11 | Anesthesia-General Post-Op ---
MAC Patient Condition Mental Status/LOC: Same as Preop Cardiovascular: Satisfactory Nausea/Vomiting: Absent Respiratory: Satisfactory Pain: Controlled Complications: Absent Post Op Complications Complications None Follow Up Care/Instructions Patient Instructions None needed. Anesthesiology Discharge Order Discharge Order Patient is doing well, no complaints, stable vital signs, no apparent adverse anesthesia problems. No complications reported per nursing. BETY VERDIN CRNA Aug 23, 2018 13:10
== END 2018-08-23 11:55 | disposition home or self-care (01) ==
LOC: SDC 09:14
PROVIDERS: ATTEND Specialist
DX: H25.11 Age-related nuclear cataract, right eye (principal); I10 Essential (primary) hypertension; Z79.82 Long term (current) use of aspirin; Z79.899 Other long term (current) drug therapy

== ENCOUNTER 2018-08-30 05:49 | Outpatient (CLI) | payer MEDICARE ==
[~2018-08-30] VITALS: Ht 166.4 cm; Wt 72.2 kg
== END 2018-08-30 13:57 | disposition home or self-care (01) ==
LOC: PREOP 05:49
PROVIDERS: ATTEND Specialist
DX: Z01.818 Encounter for other preprocedural examination (principal)

== ENCOUNTER 2018-09-01 09:19 | Day surgery (SDC) | payer MEDICARE ==
[~2018-09-01] VITALS: Ht 166.4 cm; Wt 72.2 kg
--- OUTSIDE RECORDS SUMMARY | 2018-09-01 09:22 | XMS REPORT ---
Author Author SUNIL MANN Organization [facility] Address [address] [place] [address] Care Team Providers Care Waterway Traffic Checker Name Role Phone SUNIL MANN Unavailable PROBLEMS Type Condition ICD9-CM Code [id number] Code Onset Dates Condition Status SNOMED Code Problem Other chronic pain G89.29 Active 17197412 Problem Rheumatoid arthritis involving multiple sites, unspecified rheumatoid factor presence M06.9 Active 144700087 Problem Essential hypertension I10 Active 50000667 Problem Recurrent major depressive disorder, in partial remission F33.41 Active 54838225 Problem Acquired hypothyroidism E03.9 Active [id number] ALLERGIES No Information ENCOUNTERS Encounter Location Date Diagnosis [facility] [id number] [address] 17 Dec, 2017 Acquired hypothyroidism E03.9 [facility] [id number] [place] [id number] 16 Dec, 2017 Screening for diabetes mellitus Z13.1 ; Acquired hypothyroidism E03.9 ; Other chronic pain G89.29 ; Pain in right foot M79.671 ; Pain of left foot M79.672 and Rheumatoid arthritis involving multiple sites, unspecified rheumatoid factor presence M06.9 [facility] [id number] [place] [phone] Nov, [facility] [id number] [address] 18 Aug, 2017 Medicare annual wellness visit, initial Z00.00 ; Recurrent major depressive disorder, in partial remission F33.41 ; Acquired hypothyroidism E03.9 ; Essential hypertension I10 ; Screening for breast cancer Z12.31 and Encounter for immunization Z23 [address] [id number] [address] 28 Jul, 2017 [place] [address] [address] Jun, [facility] [id number] [place] [address] Jun, Near syncope R55 [facility] [id number] [place] [address] May, Acquired hypothyroidism E03.9 [facility] [id number] [place] [address] May, Acquired hypothyroidism E03.9 [facility] [id number] [place] [address] May, Acquired hypothyroidism E03.9 [facility] [id number] [place] [address] May, Acquired hypothyroidism E03.9 and Essential hypertension I10 [facility] [id number] [place] [id number] May, [facility] [address] [place] [phone] Apr, Encounter for examination for admission to detention Z02.2 and Myxedema E03.9 [facility] [id number] [place] [address] Dec, Acute seasonal allergic rhinitis, unspecified trigger J30.2 ; Acquired hypothyroidism E03.9 ; Essential hypertension I10 and Screening for diabetes mellitus (DM) Z13.1 [facility] [address] [address] Dec, [facility] [id number] [place] [address] Dec, [facility] [id number] [place] [address] Oct, [facility] [address] [address] Oct, Subclinical hypothyroidism E03.9 [facility] [address] [facility] [id number] [address] Oct, Rheumatoid arthritis involving both knees, unspecified rheumatoid factor presence M06.9 ; Essential hypertension I10 ; Dizziness R42 and Subclinical hypothyroidism E03.9 [facility] [address] [facility] [id number] [address] Aug, Subclinical hypothyroidism E03.9 [facility] [address] [facility] [id number] [address] Aug, [facility] [id number] [address] Aug, Essential hypertension I10 ; Rheumatoid arthritis involving both knees, unspecified rheumatoid factor presence M06.9 ; Dizziness R42 and Screening for diabetes mellitus (DM) Z13.1 IMMUNIZATIONS No Known Immunizations SOCIAL HISTORY Never Assessed REASON FOR VISIT Deferred lab PLAN OF CARE VITAL SIGNS MEDICATIONS Unknown Medications RESULTS No Results PROCEDURES No Known procedures INSTRUCTIONS MEDICATIONS ADMINISTERED No Known Medications MEDICAL (GENERAL) HISTORY Type Description Date Medical History Acid Reflux Medical History Hypertension Medical History Depression Medical History Rheumatoid Arthritis Medical History Hypothyroid Medical History Seasonal Allergies Surgical History Thyroidectomy Surgical History Cholecystectomy Surgical History Tonsilectomy Hospitalization History Disorientation-pt had stopped all medications, [facility] 2016
--- OUTSIDE RECORDS SUMMARY | 2018-09-01 09:22 | XMS REPORT ---
Author Author SUNIL MANN Organization [facility] Address [address] [place] [address] Care Team Providers Care Service Writer Advisor Name Role Phone SUNIL MANN Unavailable PROBLEMS Type Condition ICD9-CM Code SUZ51-ZE Code Onset Dates Condition Status SNOMED Code Problem Other chronic pain G89.29 Active 14214177 Problem Rheumatoid arthritis involving multiple sites, unspecified rheumatoid factor presence M06.9 Active 626794229 Problem Essential hypertension I10 Active 41576767 Problem Recurrent major depressive disorder, in partial remission F33.41 Active 10877691 Problem Acquired hypothyroidism E03.9 Active 736152826 ALLERGIES Substance Reaction Event Type Date Status Penicillin V Potassium Unknown Drug Allergy Dec, Active DiphenhydrAMINE HCl Unknown Drug Allergy Dec, Active Amoxicillin Unknown Drug Allergy Dec, Active ENCOUNTERS Encounter Location Date Diagnosis [place] [id number] [place] [id number] [place] [address] 82073- 8554 Apr, [place] [id number] [place] [address] 05159- 4398 Feb, Acquired hypothyroidism E03.9 [place] [id number] [place] [address] 87271- 4176 Feb, Acquired hypothyroidism E03.9 [facility] [id number] [place] [address] 11136- 7319 Dec, Acquired hypothyroidism E03.9 [place] [address] 15446- 0108 Dec, Screening for diabetes mellitus Z13.1 ; Acquired hypothyroidism E03.9 ; Other chronic pain G89.29 ; Pain in right foot M79.671 ; Pain of left foot M79.672 and Rheumatoid arthritis involving multiple sites, unspecified rheumatoid factor presence M06.9 [place] [address] [place] [address] 82315- 6010 Nov, [place] [id number] [place] [address] 49285- 7687 Aug, Medicare annual wellness visit, initial Z00.00 ; Recurrent major depressive disorder, in partial remission F33.41 ; Acquired hypothyroidism E03.9 ; Essential hypertension I10 ; Screening for breast cancer Z12.31 and Encounter for immunization Z23 [place] [id number] [place] [address] 90980- 6597 28 Jul, 2017 [place] [id number] [place] [address] 86056- 6227 15 Jun, 2017 [place] [id number] [place] [address] 40233- 2940 Jun, Near syncope R55 [place] [id number] [place] [address] 63870- 0494 May, Acquired hypothyroidism E03.9 [place] [id number] [place] [address] 01151- 3929 May, Acquired hypothyroidism E03.9 [place] [id number] [place] [address] 08408- 9712 May, Acquired hypothyroidism E03.9 [place] [id number] [place] [address] 90077- 9623 May, Acquired hypothyroidism E03.9 and Essential hypertension I10 [facility] [id number] [place] [address] [id number] May, [facility] and [facility] [address] [place], [place] [id number] Apr, Encounter for examination for admission to [facility] Z02.2 and Myxedema E03.9 [place] [id number] [place] [address] 23903- 3253 Dec, Acute seasonal allergic rhinitis, unspecified trigger J30.2 ; Acquired hypothyroidism E03.9 ; Essential hypertension I10 and Screening for diabetes mellitus (DM) Z13.1 [place] [address] [address] Dec, [place] [address] [place] [address] Dec, [place] [address] [place] [address] 92243- 6239 Oct, [place] [id number] [place] [address] [phone]- 9541 Oct, Subclinical hypothyroidism E03.9 [place] [id number] [place] [address] [phone]- 5134 Oct, Rheumatoid arthritis involving both knees, unspecified rheumatoid factor presence M06.9 ; Essential hypertension I10 ; Dizziness R42 and Subclinical hypothyroidism E03.9 [place] [address] [place] [address] 16971- 3526 Aug, Subclinical hypothyroidism E03.9 [place] [id number] [place] [address] 13882- 8591 Aug, [place] [id number] [place] [address] 51827- 2717 Aug, Essential hypertension I10 ; Rheumatoid arthritis involving both knees, unspecified rheumatoid factor presence M06.9 ; Dizziness R42 and Screening for diabetes mellitus (DM) Z13.1 IMMUNIZATIONS No Known Immunizations SOCIAL HISTORY Never Assessed REASON FOR VISIT Thyroid fu -- adrienne keith, patient states she would like to ask doctor about something personal PLAN OF CARE Activity Details Follow Up 2 Months with Scott cardona thyroid labs Reason: VITAL SIGNS Height 60 in 2018-01-12 Weight 208.0 lbs 2018-01-12 Temperature 98.0 degrees Fahrenheit 2018-01-12 Heart Rate 69 bpm 2018-01-12 Respiratory Rate 22 2018-01-12 BMI 40.62 kg/m2 2018-01-12 Blood pressure systolic 174 mmHg 2018-01-12 Blood pressure diastolic 84 mmHg 2018-01-12 MEDICATIONS Medication Instructions Dosage Frequency Start Date End Date Duration Status Pantoprazole Sodium 40 MG TAKE ONE TABLET BY MOUTH ONCE DAILY 90 Active Aspirin 81 81 MG Orally Once a day 1 tablet 24h Active Triamterene-HCTZ 37.5-25 MG TAKE ONE TABLET BY MOUTH ONCE DAILY IN THE MORNING 90 Active Potassium Chloride Sana ER 20 MEQ TAKE ONE TABLET BY MOUTH ONCE DAILY WITH FOOD 90 Active Caltrate 600 1500 (600 Ca) MG Orally Once a day 1 tablet 24h Active Levothyroxine Sodium 125 MCG TAKE ONE TABLET BY MOUTH ONCE DAILY IN THE MORNING ON AN EMPTY STOMACH 90 Active Duloxetine HCl 60 MG TAKE ONE CAPSULE BY MOUTH ONCE DAILY 90 Active Meloxicam 7.5 MG Orally Once a day 1 tablet 24h Dec, 15 Jan, 2018 30 day(s) Active Gabapentin 400 MG TAKE ONE CAPSULE BY MOUTH THREE TIMES DAILY 90 Active Amlodipine Besylate 5 MG TAKE ONE TABLET BY MOUTH ONCE DAILY 90 Active RESULTS No Results PROCEDURES Procedure Date Ordered Result Body Site LAB NOT BILL[facility] BY [facility] Jan 12, 2018 GLYCATED HEMOGLOBIN TEST Jan 12, 2018 VENIPUNCT, ROUTINE* Jan 12, 2018 MICROALBUMIN, SEMIQUANT Jan 12, 2018 [facility] VISIT ESTABLISHED PATIENT Jan 12, 2018 INSTRUCTIONS MEDICATIONS ADMINISTERED No Known Medications MEDICAL (GENERAL) HISTORY Type Description Date Medical History Acid Reflux Medical History Hypertension Medical History Depression Medical History Rheumatoid Arthritis Medical History Hypothyroid Medical History Seasonal Allergies Surgical History Thyroidectomy Surgical History Cholecystectomy Surgical History Tonsilectomy Hospitalization History Disorientation-pt had stopped all medications, [facility] 2016
--- OUTSIDE RECORDS SUMMARY | 2018-09-01 09:22 | XMS REPORT ---
Author Author SUNIL MANN Organization [facility] Address [address] [place] [address] Care Team Providers Care Teacher Education Instructor Name Role Phone SUNIL MANN Unavailable PROBLEMS Type Condition ICD9-CM Code ADF21-TC Code Onset Dates Condition Status SNOMED Code Problem Other chronic pain G89.29 Active 94882986 Problem Rheumatoid arthritis involving multiple sites, unspecified rheumatoid factor presence M06.9 Active 637225038 Problem Essential hypertension I10 Active 26476166 Problem Recurrent major depressive disorder, in partial remission F33.41 Active 59211027 Problem Acquired hypothyroidism E03.9 Active 102094379 ALLERGIES No Information ENCOUNTERS Encounter Location Date Diagnosis [place] [address] [place] [id number] [place] [address] 39472- 8647 Apr, [facility] [id number] [place] [address] 30519- 8995 Apr, [place] [address] 27760- 7489 Feb, Acquired hypothyroidism E03.9 [place] [address] [id number] [place] [address] 86186- 4555 Feb, Acquired hypothyroidism E03.9 [facility] [id number] [place] [address] 06090- 0277 Dec, Acquired hypothyroidism E03.9 [facility] [id number] [place] [address] 46103- 0746 Dec, Screening for diabetes mellitus Z13.1 ; Acquired hypothyroidism E03.9 ; Other chronic pain G89.29 ; Pain in right foot M79.671 ; Pain of left foot M79.672 and Rheumatoid arthritis involving multiple sites, unspecified rheumatoid factor presence M06.9 [facility] [address] [place] [address] 19523- 1619 Nov, [place] [id number] [place] [address] 91320- 3250 Aug, Medicare annual wellness visit, initial Z00.00 ; Recurrent major depressive disorder, in partial remission F33.41 ; Acquired hypothyroidism E03.9 ; Essential hypertension I10 ; Screening for breast cancer Z12.31 and Encounter for immunization Z23 [place] [address] [id number] [place] [address] 27013- 4621 28 Jul, 2017 [place] [id number] [place] [address] 06648- 0645 Jun, [place] [address] [id number] [place] [address] 35802- 8515 Jun, Near syncope R55 [place] [address] [id number] [place] [address] 28435- 7570 May, Acquired hypothyroidism E03.9 [place] [id number] [place] [address] 31199- 3522 May, Acquired hypothyroidism E03.9 [place] [address] [id number] [place] [address] 12565- 5394 May, Acquired hypothyroidism E03.9 [place] [id number] [place] [address] 36663- 6737 May, Acquired hypothyroidism E03.9 and Essential hypertension I10 [facility] [address] [place] [id number] [place] [address] [phone] May, [facility] [address] [place], [place] [id number] Apr, Encounter for examination for admission to penitentiary Z02.2 and Myxedema E03.9 [place] [address] [place] [address] 97504- 3095 Dec, Acute seasonal allergic rhinitis, unspecified trigger J30.2 ; Acquired hypothyroidism E03.9 ; Essential hypertension I10 and Screening for diabetes mellitus (DM) Z13.1 [place] [address] [address]- 9374 Dec, [facility] [id number] [place] [address] 27462- 8779 Dec, [facility] [id number] [place] [address] 38971- 4269 Oct, [place] [address] [id number] [place] [address] 88629- 4468 Oct, Subclinical hypothyroidism E03.9 [place] [address] [id number] [place] [address] 17975- 0243 Oct, Rheumatoid arthritis involving both knees, unspecified rheumatoid factor presence M06.9 ; Essential hypertension I10 ; Dizziness R42 and Subclinical hypothyroidism E03.9 [place] [address] [id number] [place] [address] 33613- 9891 Aug, Subclinical hypothyroidism E03.9 [place] [address] [place] [address] 30245- 2181 Aug, [place] [address] [id number] [place] [address] 02378- 1727 Aug, Essential hypertension I10 ; Rheumatoid arthritis involving both knees, unspecified rheumatoid factor presence M06.9 ; Dizziness R42 and Screening for diabetes mellitus (DM) Z13.1 IMMUNIZATIONS No Known Immunizations SOCIAL HISTORY Never Assessed REASON FOR VISIT Routine nurse call PLAN OF CARE VITAL SIGNS MEDICATIONS Unknown [...] Hospitalization History Disorientation-pt had stopped all medications, [facility] 2016
--- OUTSIDE RECORDS SUMMARY | 2018-09-01 09:23 | XMS REPORT ---
Author Author SUNIL MANN Organization [facility] Address [address] [place] [address] Care Team Providers Care Survey Research Analyst Name Role Phone SUNIL MANN Unavailable PROBLEMS Type Condition ICD9-CM Code BUC52-XG Code Onset Dates Condition Status SNOMED Code Problem Acquired hypothyroidism E03.9 Active 034596113 Problem Recurrent major depressive disorder, in partial remission F33.41 Active 78004622 Problem Essential hypertension I10 Active 99630757 ALLERGIES No Information ENCOUNTERS Encounter Location Date Diagnosis [place] [address] 66125- 3519 Nov, [place] [address] 29155- 6192 18 Aug, 2017 Medicare annual wellness visit, initial Z00.00 ; Recurrent major depressive disorder, in partial remission F33.41 ; Acquired hypothyroidism E03.9 ; Essential hypertension I10 ; Screening for breast cancer Z12.31 and Encounter for immunization Z23 [place] [address] [id number] [place] [address] 29903- 2717 Jul, [place] [address] 27590- 1658 Jun, [facility] [id number] [place] [address] 61654- 3706 Jun, Near syncope R55 [place] [address] 24104- 6515 May, Acquired hypothyroidism E03.9 [place] [id number] [place] [address] 32321- 8764 May, Acquired hypothyroidism E03.9 [place] [address] 11915- 3045 May, Acquired hypothyroidism E03.9 [facility] [address] [place] [address] 80585- 4916 May, Acquired hypothyroidism E03.9 and Essential hypertension I10 [facility] [id number] [place] [address] [id number] May, [facility] [address] [place] [id number] Apr, Encounter for examination for admission to alf Z02.2 and Myxedema E03.9 [facility] [id number] [place] [address] 16211- 8905 Dec, Acute seasonal allergic rhinitis, unspecified trigger J30.2 ; Acquired hypothyroidism E03.9 ; Essential hypertension I10 and Screening for diabetes mellitus (DM) Z13.1 [place] [id number] [place] [address] 64868- 0103 Dec, [facility] [id number] [place] [address] 63317- 7018 Dec, [facility] [id number] [place] [address] 54266- 2826 Oct, [facility] [id number] [place] [address] 50853- 5577 Oct, Subclinical hypothyroidism E03.9 [facility] [id number] [place] [address] 96683- 8969 Oct, Rheumatoid arthritis involving both knees, unspecified rheumatoid factor presence M06.9 ; Essential hypertension I10 ; Dizziness R42 and Subclinical hypothyroidism E03.9 [facility] [id number] [place] [address] 77482- 8220 Aug, Subclinical hypothyroidism E03.9 [facility] [id number] [place] [address] 54631- 4058 Aug, [facility] [id number] [place] [address] 54203- 6638 Aug, Essential hypertension I10 ; Rheumatoid arthritis involving both knees, unspecified rheumatoid factor presence M06.9 ; Dizziness R42 and Screening for diabetes mellitus (DM) Z13.1 IMMUNIZATIONS No Known Immunizations SOCIAL HISTORY Never Assessed REASON FOR VISIT request out patient therapy PLAN OF CARE VITAL SIGNS MEDICATIONS Unknown [...] Hospitalization History Disorientation-pt had stopped all medications, [facility] 2017
--- OUTSIDE RECORDS SUMMARY | 2018-09-01 09:23 | XMS REPORT ---
Author Author SUNIL MANN Organization [facility] Address [address] [place] [address] Care Team Providers Care Gun Tester Name Role Phone SUNIL MANN Unavailable PROBLEMS Type Condition ICD9-CM Code OSA07-QR Code Onset Dates Condition Status SNOMED Code Problem Acquired hypothyroidism E03.9 Active 832303481 Problem Recurrent major depressive disorder, in partial remission F33.41 Active 15442414 Problem Essential hypertension I10 Active 81662738 ALLERGIES No Information ENCOUNTERS Encounter Location Date Diagnosis [place] [address] 73213- 9959 Aug, Medicare annual wellness visit, initial Z00.00 [facility] [address] 90609- 1179 Jul, [facility] [address] 45391- 7474 15 Jun, 2017 [facility] [address] 38738- 7673 Jun, Near syncope R55 [facility] [id number] [place] [address] 82323- 7000 May, Acquired hypothyroidism E03.9 [facility] [id number] [place] [address] 14061- 7851 May, Acquired hypothyroidism E03.9 [facility] [address] 17932- 8999 May, Acquired hypothyroidism E03.9 [facility] [id number] [place] [address] 45099- 5864 May, Acquired hypothyroidism E03.9 and Essential hypertension I10 [facility] [address] [id number] May, [facility] [address] [place], [place] [id number] Apr, Encounter for examination for admission to assisted Z02.2 and Myxedema E03.9 [place] [address] [place] [address] 65110- 6285 Dec, Acute seasonal allergic rhinitis, unspecified trigger J30.2 ; Acquired hypothyroidism E03.9 ; Essential hypertension I10 and Screening for diabetes mellitus (DM) Z13.1 [place] [id number] [place] [address] 99444- 0696 Dec, [place] [address] [id number] [place] [address] 02443- 4236 Dec, [place] [id number] [place] [address] 86694- 9053 Oct, [place] [id number] [place] [address] 39754- 5822 Oct, Subclinical hypothyroidism E03.9 [place] [id number] [place] [address] 89918- 0592 Oct, Rheumatoid arthritis involving both knees, unspecified rheumatoid factor presence M06.9 ; Essential hypertension I10 ; Dizziness R42 and Subclinical hypothyroidism E03.9 [place] [address] [place] [address] 15335- 1227 Aug, Subclinical hypothyroidism E03.9 [place] [address] [address]- 0364 Aug, [place] [id number] [place] [address] 80947- 6101 Aug, Essential hypertension I10 ; Rheumatoid arthritis involving both knees, unspecified rheumatoid factor presence M06.9 ; Dizziness R42 and Screening for diabetes mellitus (DM) Z13.1 IMMUNIZATIONS No Known Immunizations SOCIAL HISTORY Never Assessed REASON FOR VISIT Claritin-D 24 hour refill PLAN OF CARE VITAL SIGNS MEDICATIONS Medication Instructions Dosage Frequency Start Date End Date Duration Status Claritin-D 24 Hour 10-240 MG Orally Once a day 1 tablet as needed 24h 20 Oct, 2016 Jul, 30 days Active RESULTS No Results PROCEDURES No Known procedures INSTRUCTIONS MEDICATIONS ADMINISTERED No Known Medications MEDICAL (GENERAL) HISTORY Type Description Date Medical History Acid Reflux Medical History Hypertension Medical History Depression Medical History Rheumatoid Arthritis Medical History Hypothyroid Medical History Seasonal Allergies Surgical History Thyroidectomy Surgical History Cholecystectomy Surgical History Tonsilectomy Hospitalization History Disorientation-pt had stopped all medications, [facility] 2016
--- OUTSIDE RECORDS SUMMARY | 2018-09-01 09:23 | XMS REPORT ---
Author Author SUNIL MANN Organization [facility] Address [address] [place] [address] Care Team Providers Care Experimental Welder Name Role Phone SUNIL MANN Unavailable PROBLEMS Type Condition ICD9-CM Code OUM13-KI Code Onset Dates Condition Status SNOMED Code Problem Other chronic pain G89.29 Active 96090040 Problem Rheumatoid arthritis involving multiple sites, unspecified rheumatoid factor presence M06.9 Active 645704259 Problem Essential hypertension I10 Active 22114399 Problem Recurrent major depressive disorder, in partial remission F33.41 Active 65449810 Problem Acquired hypothyroidism E03.9 Active 339108379 ALLERGIES No Information ENCOUNTERS Encounter Location Date Diagnosis [facility] [address] [address] 17 Dec, 2017 Acquired hypothyroidism E03.9 [facility] [id number] [place] [address]30- 5211 16 Dec, 2017 Screening for diabetes mellitus Z13.1 ; Acquired hypothyroidism E03.9 ; Other chronic pain G89.29 ; Pain in right foot M79.671 ; Pain of left foot M79.672 and Rheumatoid arthritis involving multiple sites, unspecified rheumatoid factor presence M06.9 [facility] [id number] [place] [address] 96164- 3607 Nov, [facility] [id number] [address] 18 Aug, 2017 Medicare annual wellness visit, initial Z00.00 ; Recurrent major depressive disorder, in partial remission F33.41 ; Acquired hypothyroidism E03.9 ; Essential hypertension I10 ; Screening for breast cancer Z12.31 and Encounter for immunization Z23 [place] [id number] [address] 28 Jul, 2017 [place] [address] [address] Jun, [facility] [id number] [place] [address] 27286- 0541 Jun, Near syncope R55 [facility] [address] [place] [address] 25851- 8526 May, Acquired hypothyroidism E03.9 [facility] [id number] [place] [address] 11676- 2524 May, Acquired hypothyroidism E03.9 [facility] [id number] [place] [address] 85082- 4763 May, Acquired hypothyroidism E03.9 [facility] [id number] [place] [address] 75200- 9908 May, Acquired hypothyroidism E03.9 and Essential hypertension I10 [facility] [id number] [place] [address] [id number] May, [facility] [address] [place] [address] [id number] Apr, Encounter for examination for admission to prison Z02.2 and Myxedema E03.9 [facility] [address] [place] [address] 15204- 6716 Dec, Acute seasonal allergic rhinitis, unspecified trigger J30.2 ; Acquired hypothyroidism E03.9 ; Essential hypertension I10 and Screening for diabetes mellitus (DM) Z13.1 [facility] [address] [address] Dec, [facility] [id number] [place] [address] 16907- 5258 Dec, [facility] [address] [place] [address] 00115- 5227 Oct, [facility] [address], [place] [address] Oct, Subclinical hypothyroidism E03.9 [facility] [address] [facility] [id number] [address] Oct, Rheumatoid arthritis involving both knees, unspecified rheumatoid factor presence M06.9 ; Essential hypertension I10 ; Dizziness R42 and Subclinical hypothyroidism E03.9 [facility] [address] [facility] [id number] [address] 8[address] Aug, Subclinical hypothyroidism E03.9 [facility] [id number], [place] [address] Aug, [facility] [id number] [address] Aug, Essential hypertension I10 ; Rheumatoid arthritis involving both knees, unspecified rheumatoid factor presence M06.9 ; Dizziness R42 and Screening for diabetes mellitus (DM) Z13.1 IMMUNIZATIONS No Known Immunizations SOCIAL HISTORY Never Assessed REASON FOR VISIT PLAN OF CARE VITAL SIGNS MEDICATIONS Unknown [...] Hospitalization History Disorientation-pt had stopped all medications, [facility] 2016
--- OUTSIDE RECORDS SUMMARY | 2018-09-01 09:23 | XMS REPORT ---
Author Author SUNIL MANN Organization [facility] Address [address] [place] [address] Care Team Providers Care Manager Assembly Name Role Phone SUNIL MANN Unavailable PROBLEMS Type Condition ICD9-CM Code [id number] Code Onset Dates Condition Status SNOMED Code Problem Other chronic pain G89.29 Active 15609307 Problem Rheumatoid arthritis involving multiple sites, unspecified rheumatoid factor presence M06.9 Active 915656476 Problem Essential hypertension I10 Active 82993232 Problem Recurrent major depressive disorder, in partial remission F33.41 Active 28082602 Problem Acquired hypothyroidism E03.9 Active 492793665 ALLERGIES Substance Reaction Event Type Date Status Penicillin V Potassium Unknown Drug Allergy Aug, Active DiphenhydrAMINE HCl Unknown Drug Allergy Aug, Active Amoxicillin Unknown Drug Allergy Aug, Active ENCOUNTERS Encounter Location Date Diagnosis [facility] [address] [address] 17 Dec, 2017 Acquired hypothyroidism E03.9 [facility] [address] [place] [address] 51090- 8745 16 Dec, 2017 Screening for diabetes mellitus Z13.1 ; Acquired hypothyroidism E03.9 ; Other chronic pain G89.29 ; Pain in right foot M79.671 ; Pain of left foot M79.672 and Rheumatoid arthritis involving multiple sites, unspecified rheumatoid factor presence M06.9 [facility] [id number] [address] 11 Nov, 2017 [facility] [address] [place] [address] 59733- 0521 18 Aug, 2017 Medicare annual wellness visit, initial Z00.00 ; Recurrent major depressive disorder, in partial remission F33.41 ; Acquired hypothyroidism E03.9 ; Essential hypertension I10 ; Screening for breast cancer Z12.31 and Encounter for immunization Z23 [facility] [id number] [place] [address] 64992- 7567 Jul, [facility] [id number] [place] [address] 89416- 2954 Jun, [facility] [id number] [place] [address] 43706- 7711 Jun, Near syncope R55 [facility] [id number] [place] [address] 72828- 0200 May, Acquired hypothyroidism E03.9 [facility] [id number] [place] [address] 38698- 6637 May, Acquired hypothyroidism E03.9 [facility] [id number] [place] [address] 98345- 0871 May, Acquired hypothyroidism E03.9 [facility] [id number] [place] [address] 69775- 4989 May, Acquired hypothyroidism E03.9 and Essential hypertension I10 [facility] [id number] [place] [address] [id number] May, [facility] and [address] [id number] Apr, Encounter for examination for admission to correction Z02.2 and Myxedema E03.9 [facility] [id number] [place] [address] 55064- 5398 Dec, Acute seasonal allergic rhinitis, unspecified trigger J30.2 ; Acquired hypothyroidism E03.9 ; Essential hypertension I10 and Screening for diabetes mellitus (DM) Z13.1 [facility] [id number] [place] [address] 53525- 6413 Dec, [facility] [id number] [place] [address] 71568- 9314 Dec, [facility] [id number] [place] [address] 13706- 8411 Oct, [place] [id number] [address]- 5641 Oct, Subclinical hypothyroidism E03.9 [place] [address] [address] 0607 Oct, Rheumatoid arthritis involving both knees, unspecified rheumatoid factor presence M06.9 ; Essential hypertension I10 ; Dizziness R42 and Subclinical hypothyroidism E03.9 [place] [address] [address]- 8072 Aug, Subclinical hypothyroidism E03.9 [place] [address] [place] [address] 94488- 8606 Aug, [place] [address] [place] [address] 88280- 6772 Aug, Essential hypertension I10 ; Rheumatoid arthritis involving both knees, unspecified rheumatoid factor presence M06.9 ; Dizziness R42 and Screening for diabetes mellitus (DM) Z13.1 IMMUNIZATIONS Vaccine Route Administration Date Status TDAP (BOOSTRIX) IM Intramuscular September 14, 2017 Administered PCV 13 IM Intramuscular September 14, 2017 Administered SOCIAL HISTORY Never Assessed REASON FOR VISIT Medicare AWV - Initial Visit----Murphy Diaz requests [facility] H[facility] PLAN OF CARE Activity Details Follow Up 1 Year with Scott for MAWV, 3 months for CHM Reason: VITAL SIGNS Height 60 in 2017-09-14 Weight 196.8 lbs 2017-09-14 Temperature 97.3 degrees Fahrenheit 2017-09-14 Heart Rate 100 bpm 2017-09-14 Respiratory Rate 20 2017-09-14 BMI 38.43 kg/m2 2017-09-14 Blood pressure systolic 140 mmHg 2017-09-14 Blood pressure diastolic 92 mmHg 2017-09-14 MEDICATIONS Medication Instructions Dosage Frequency Start Date End Date Duration Status Triamterene-HCTZ 37.5-25 MG TAKE ONE TABLET BY MOUTH ONCE DAILY IN THE MORNING 90 Active Caltrate 600 1500 (600 Ca) MG Orally Once a day 1 tablet 24h Active Melatonin 3 MG Orally at bedtime 1 tablet under the tongue and allow to dissolve at bedtime as needed with food Active Amlodipine Besylate 5 MG TAKE ONE TABLET BY MOUTH ONCE DAILY 90 Active Norvasc 5 mg Orally Once a day 1 tablet 24h 90 days Not-Taking Potassium Chloride ER 20 meq Orally Once a day 1 tablet with food 24h 90 days Not-Taking Gabapentin 400 MG TAKE ONE CAPSULE BY MOUTH THREE TIMES DAILY 90 Active Potassium Chloride Sana ER 20 MEQ TAKE ONE TABLET BY MOUTH ONCE DAILY WITH FOOD 90 Active Duloxetine HCl 60 MG TAKE ONE CAPSULE BY MOUTH ONCE DAILY 90 Active Aspirin 81 81 MG Orally Once a day 1 tablet 24h Active Pantoprazole Sodium 40 MG TAKE ONE TABLET BY MOUTH ONCE DAILY 90 Active Levothyroxine Sodium 125 MCG TAKE ONE TABLET BY MOUTH ONCE DAILY IN THE MORNING ON AN EMPTY STOMACH 90 Active Doxazosin Mesylate 2 MG Orally Once a day 1 tablet 24h 30 days Not- Taking RESULTS No Results PROCEDURES Procedure Date Ordered Result Body Site ANNUAL HENRY VST; LAVERNE PPS INIT September 14, 2017 FALL RISK ASSESSMENT DOCD September 14, 2017 IMMUNIZATION ADMIN, EACH ADD (please include units) September 14, 2017 TDAP (BOOSTRIX) September 14, 2017 PT TOBACCO SCREEN RCVD TLK September 14, 2017 SINGLE IMMUNIZATION ADMIN September 14, 2017 PCV 13 September 14, 2017 INSTRUCTIONS MEDICATIONS ADMINISTERED No Known Medications MEDICAL (GENERAL) HISTORY Type Description Date Medical History Acid Reflux Medical History Hypertension Medical History Depression Medical History Rheumatoid Arthritis Medical History Hypothyroid Medical History Seasonal Allergies Surgical History Thyroidectomy Surgical History Cholecystectomy Surgical History Tonsilectomy Hospitalization History Disorientation-pt had stopped all medications, [facility] 2016
--- OUTSIDE RECORDS SUMMARY | 2018-09-01 09:23 | XMS REPORT ---
Author Author KARI FOREMAN Organization [facility] Address [address] [place] [address] Care Team Providers Care Brick Veneer Maker Name Role Phone KARI FOREMAN Unavailable PROBLEMS Type Condition ICD9-CM Code RGF28-TD Code Onset Dates Condition Status SNOMED Code Problem Acquired hypothyroidism E03.9 Active 651254652 Problem Recurrent major depressive disorder, in partial remission F33.41 Active 67362317 Problem Essential hypertension I10 Active 05553966 ALLERGIES No Information ENCOUNTERS Encounter Location Date Diagnosis [place] [id number] [place] [address] 11991- 1363 18 Aug, 2017 Medicare annual wellness visit, initial Z00.00 ; Recurrent major depressive disorder, in partial remission F33.41 ; Acquired hypothyroidism E03.9 ; Essential hypertension I10 ; Screening for breast cancer Z12.31 and Encounter for immunization Z23 [place] [id number] [place] [address] 82574- 9659 Jul, [facility] [id number] [place] [address] 76112- 0532 15 Jun, 2017 [facility] [id number] [place] [address] 84823- 8870 Jun, Near syncope R55 [facility] [id number] [place] [address] 16068- 9475 May, Acquired hypothyroidism E03.9 [facility] [id number] [place] [address] 01664- 5483 May, Acquired hypothyroidism E03.9 [facility] [id number] [place] [address] 34870- 8436 May, Acquired hypothyroidism E03.9 [facility] [address] [place] [address] 51741- 1148 May, Acquired hypothyroidism E03.9 and Essential hypertension I10 [facility] [id number] [place] [address] [id number] May, [facility] [address] [place] [id number] Apr, En[facility] Z02.2 and Myxedema E03.9 [place] [id number] [place] [address] 52885- 6100 Dec, Acute seasonal allergic rhinitis, unspecified trigger J30.2 ; Acquired hypothyroidism E03.9 ; Essential hypertension I10 and Screening for diabetes mellitus (DM) Z13.1 [place] [id number] [place] [address] 11472- 0962 Dec, [place] [id number] [place] [address] 78082- 8294 Dec, [place] [id number] [place] [address] 54814- 1774 Oct, [place] [id number] [place] [address] 70857- 3078 Oct, Subclinical hypothyroidism E03.9 [place] [id number] [place] [address] 54833- 0713 Oct, Rheumatoid arthritis involving both knees, unspecified rheumatoid factor presence M06.9 ; Essential hypertension I10 ; Dizziness R42 and Subclinical hypothyroidism E03.9 [place] [id number] [place] [address] 23961- 8174 Aug, Subclinical hypothyroidism E03.9 [place] [id number] [place] [address] 72117- 1222 Aug, [place] [id number] [place] [address] 35495- 9737 Aug, Essential hypertension I10 ; Rheumatoid arthritis involving both knees, unspecified rheumatoid factor presence M06.9 ; Dizziness R42 and Screening for diabetes mellitus (DM) Z13.1 IMMUNIZATIONS No Known Immunizations SOCIAL HISTORY Never Assessed REASON FOR VISIT [facility] admission PLAN OF CARE Activity Details Follow Up prn Reason: VITAL SIGNS MEDICATIONS Unknown Medications RESULTS No Results PROCEDURES Procedure Date Ordered Result Body Site [facility] VISIT ESTABLISHED PATIENT May 24, 2017 INSTRUCTIONS MEDICATIONS ADMINISTERED No Known Medications MEDICAL (GENERAL) HISTORY Type Description Date Medical History Acid Reflux Medical History Hypertension Medical History Depression Medical History Rheumatoid Arthritis Medical History Hypothyroid Medical History Seasonal Allergies Surgical History Thyroidectomy Surgical History Cholecystectomy Surgical History Tonsilectomy Hospitalization History Disorientation-pt had stopped all medications, [facility] 2016
--- OUTSIDE RECORDS SUMMARY | 2018-09-01 09:23 | XMS REPORT ---
Author Author SUNIL MANN Organization [facility] Address [address] [place] [address] Care Team Providers Care Commercial Plumber Name Role Phone SUNIL MANN Unavailable PROBLEMS Type Condition ICD9-CM Code [id number] Code Onset Dates Condition Status SNOMED Code Problem Acquired hypothyroidism E03.9 Active 485045443 Problem Recurrent major depressive disorder, in partial remission F33.41 Active 30816389 Problem Essential hypertension I10 Active 11769732 ALLERGIES No Information ENCOUNTERS Encounter Location Date Diagnosis [place] [address] [address]- 3664 Nov, [place] [address] [address]- 1358 18 Aug, 2017 Medicare annual wellness visit, initial Z00.00 ; Recurrent major depressive disorder, in partial remission F33.41 ; Acquired hypothyroidism E03.9 ; Essential hypertension I10 ; Screening for breast cancer Z12.31 and Encounter for immunization Z23 [place] [address] [place] [id number] [place] [address] 65289- 1667 Jul, [place] [address] 6[address]46- 6264 15 Jun, 2017 [facility] [id number] [place] [address] 86271- 7157 Jun, Near syncope R55 [place] [address] 21614- 0006 May, Acquired hypothyroidism E03.9 [place] [id number] [place] [address] 08723- 3031 May, Acquired hypothyroidism E03.9 [place] [address] 91119- 8738 May, Acquired hypothyroidism E03.9 [facility] [address] [place] [address] 08157- 0760 May, Acquired hypothyroidism E03.9 and Essential hypertension I10 [facility] [id number] [place] [address] [id number] May, [facility] [address] [place] [id number] Apr, Encounter for examination for admission to detention Z02.[address] [facility] [id number] [place] [address] 75185- 4765 Dec, Acute seasonal allergic rhinitis, unspecified trigger J30.2 ; Acquired hypothyroidism E03.9 ; Essential hypertension I10 and Screening for diabetes mellitus (DM) Z13.1 [place] [id number] [place] [address] 06213- 3439 Dec, [facility] [id number] [place] [address] 37268- 9696 Dec, [facility] [id number] [place] [address] 86314- 0574 Oct, [facility] [id number] [place] [address] 28623- 5002 Oct, Subclinical hypothyroidism E03.9 [facility] [id number] [place] [address] 02219- 6321 Oct, Rheumatoid arthritis involving both knees, unspecified rheumatoid factor presence M06.9 ; Essential hypertension I10 ; Dizziness R42 and Subclinical hypothyroidism E03.9 [facility] [id number] [place] [address] 13992- 1178 Aug, Subclinical hypothyroidism E03.9 [facility] [id number] [place] [address] 05213- 4361 Aug, [facility] [id number] [place] [address] 32082- 9668 Aug, Essential hypertension I10 ; Rheumatoid arthritis involving both knees, unspecified rheumatoid factor presence M06.9 ; Dizziness R42 and Screening for diabetes mellitus (DM) Z13.1 IMMUNIZATIONS No Known Immunizations SOCIAL HISTORY Never Assessed REASON FOR VISIT Home Care PLAN OF CARE VITAL SIGNS MEDICATIONS Unknown [...] Hospitalization History Disorientation-pt had stopped all medications, [facility] 2017
--- OUTSIDE RECORDS SUMMARY | 2018-09-01 09:23 | XMS REPORT ---
Author Author SUNIL MANN Organization [facility] Address [address] [place] [address] Care Team Providers Care Remote Advisor Name Role Phone SUNIL MANN Unavailable PROBLEMS Type Condition ICD9-CM Code [id number] Code Onset Dates Condition Status SNOMED Code Problem Acquired hypothyroidism E03.9 Active 467070837 Problem Recurrent major depressive disorder, in partial remission F33.41 Active 21712650 Problem Essential hypertension I10 Active 24522229 ALLERGIES No Information ENCOUNTERS Encounter Location Date Diagnosis [place] [address] [address] Aug, Medicare annual wellness visit, initial Z00.00 [facility] [address] [address] Jul, [facility] [address] [address] 15 Jun, 2017 [facility] [address] [address] Jun, Near syncope R55 [facility] [address] [place] [address] [id number] [place] [address]42- 4507 May, Acquired hypothyroidism E03.9 [facility] [address] [id number] [place] [address] 82693- 6564 May, Acquired hypothyroidism E03.9 [facility] [address] 270[address]- [address] May, Acquired hypothyroidism E03.9 [facility] [address] [id number] [place] [address] 03739- 4240 May, Acquired hypothyroidism E03.9 and Essential hypertension I10 [facility] [address] [place] [address] [id number] May, [facility] [address] [id number] Apr, Encounter for examination for admission to [facility] Z02.2 and Myxedema E03.9 [place] [address] [place] [address] 99125- 3484 Dec, Acute seasonal allergic rhinitis, unspecified trigger J30.2 ; Acquired hypothyroidism E03.9 ; Essential hypertension I10 and Screening for diabetes mellitus (DM) Z13.1 [place] [address] [place] [id number] [place] [address] 92697- 4698 Dec, [place] [address] [place] [id number] [place] [address] 26333- 7098 Dec, [place] [address] [place] [id number] [place] [address] 10368- 3942 Oct, [place] [address] [place] [id number] [place] [address] 21944- 7690 Oct, Subclinical hypothyroidism E03.9 [place] [address] [place] [id number] [place] [address] 88807- 9727 Oct, Rheumatoid arthritis involving both knees, unspecified rheumatoid factor presence M06.9 ; Essential hypertension I10 ; Dizziness R42 and Subclinical hypothyroidism E03.9 [place] [address] [place] [address] 92934- 8837 Aug, Subclinical hypothyroidism E03.9 [place] [address] [place] [address] 36808- 8559 Aug, [place] [address] [place] [id number] [place] [address] 06135- 3841 Aug, Essential hypertension I10 ; Rheumatoid arthritis involving both knees, unspecified rheumatoid factor presence M06.9 ; Dizziness R42 and Screening for diabetes mellitus (DM) Z13.1 IMMUNIZATIONS No Known Immunizations SOCIAL HISTORY Never Assessed REASON FOR VISIT Refill requests PLAN OF CARE VITAL SIGNS MEDICATIONS Medication Instructions Dosage Frequency Start Date End Date Duration Status Triamterene-HCTZ 37.5-25 MG Orally Once a day 1 tablet in the morning 24h 30 days Active Torsemide 20 mg Orally Once a day 2 tablets 24h 30 days Active Doxazosin Mesylate 2 MG Orally Once a day 1 tablet 24h 30 days Active Levothyroxine Sodium 200 MCG Orally Once a day 1 tablet on an empty stomach in the morning 24h Dec, 30 day(s) Active Claritin-D 24 Hour 10-240 MG Orally Once a day 1 tablet as needed 24h Oct, Jan, 30 days Active Klor-Con 20 MEQ Orally Once a day 1 tablet 24h Jan, 30 days Active Duloxetine HCl 60 mg Orally Once a day 1 capsule 24h 30 days Active RESULTS No Results PROCEDURES No Known procedures INSTRUCTIONS MEDICATIONS ADMINISTERED No Known Medications MEDICAL (GENERAL) HISTORY Type Description Date Medical History Acid Reflux Medical History Hypertension Medical History Depression Medical History Rheumatoid Arthritis Medical History Hypothyroid Medical History Seasonal Allergies Surgical History Thyroidectomy Surgical History Cholecystectomy Surgical History Tonsilectomy Hospitalization History Disorientation-pt had stopped all medications, [facility] 2016
--- OUTSIDE RECORDS SUMMARY | 2018-09-01 09:24 | XMS REPORT ---
Author Author SUNIL MANN Organization [facility] Address [address] [place] [address] Care Team Providers Care Outpatient Services Director Name Role Phone SUNIL MANN Unavailable PROBLEMS Type Condition ICD9-CM Code [id number] Code Onset Dates Condition Status SNOMED Code Problem Acquired hypothyroidism E03.9 Active 818984742 Problem Recurrent major depressive disorder, in partial remission F33.41 Active 60297924 Problem Essential hypertension I10 Active 20788110 ALLERGIES No Known Allergies ENCOUNTERS Encounter Location Date Diagnosis [facility] [address] [place] [id number] [place] [address] 43218- 9870 Aug, Medicare annual wellness visit, initial Z00.00 ; Recurrent major depressive disorder, in partial remission F33.41 ; Acquired hypothyroidism E03.9 and Essential hypertension I10 [facility] [address] [id number] [place] [address] 89618- 4211 Jul, [facility] [address] [id number] [place] [address] 12221- 8387 Jun, [facility] [address] [place] [id number] [place] [address] 16843- 4563 Jun, Near syncope R55 [facility] [address] [place] [id number] [place] [address] 62288- 7925 May, Acquired hypothyroidism E03.9 [facility] [address] [place] [address] [id number] [place] [address] 35569- 9953 May, Acquired hypothyroidism E03.9 [facility] [address] [place] [id number] [place] [address] 42293- 9978 May, Acquired hypothyroidism E03.9 [facility] [address] [place] [address] [id number] [place] [address] 72058- 1697 May, Acquired hypothyroidism E03.9 and Essential hypertension I10 [facility] [address] [place] [id number] [place] [phone] May, [facility] [address] [place] [id number] Apr, Encounter for examination for admission to jail Z02.2 and Myxedema E03.9 [facility] [address] [place] [id number] [place] [address] 55403- 5626 Dec, Acute seasonal allergic rhinitis, unspecified trigger J30.2 ; Acquired hypothyroidism E03.9 ; Essential hypertension I10 and Screening for diabetes mellitus (DM) Z13.1 [place] [address] [place] [id number] [place] [address] 61298- 1990 Dec, [place] [address] [place] [id number] [place] [address] 78744- 6511 Dec, [facility] [address] [place] [id number] [place] [address] 34796- 0673 Oct, [facility] [address] [place] [address] 23877- 1523 Oct, Subclinical hypothyroidism E03.9 [facility] [address] [place] [id number] [place] [address] 48153- 9472 Oct, Rheumatoid arthritis involving both knees, unspecified rheumatoid factor presence M06.9 ; Essential hypertension I10 ; Dizziness R42 and Subclinical hypothyroidism E03.9 [facility] [address] [place] [address] [id number] [place] [address] 16487- 5707 Aug, Subclinical hypothyroidism E03.9 [facility] [address] [place] [address] 62724- 7323 Aug, [place] [address] [place] [id number] [place] [address] 84702- 1080 Aug, Essential hypertension I10 ; Rheumatoid arthritis involving both knees, unspecified rheumatoid factor presence M06.9 ; Dizziness R42 and Screening for diabetes mellitus (DM) Z13.1 IMMUNIZATIONS No Known Immunizations SOCIAL HISTORY Never Assessed REASON FOR VISIT Establish Care- pt states her arthritis has flared up-Duyen, Previous PCP was Dr. Bee, see's Dr. Nava for pain management but he is leaving in SEPTEMBER PLAN OF CARE Activity Details Follow Up 3 Months with Scott f/u HTN and pain Reason: VITAL SIGNS Height 60 in 2016-09-13 Weight 214.5 lbs 2016-09-13 Temperature 97.2 degrees Fahrenheit 2016-09-13 Heart Rate 82 bpm 2016-09-13 Respiratory Rate 22 2016-09-13 Oximetry 96 % 2016-09-13 BMI 41.89 kg/m2 2016-09-13 Blood pressure systolic 124 mmHg 2016-09-13 Blood pressure diastolic 78 mmHg 2016-09-13 MEDICATIONS Medication Instructions Dosage Frequency Start Date End Date Duration Status Diclofenac Sodium 1 % Transdermal Three times a day 4 gm 8h September, 30 days Active Meclizine HCl 25 MG Orally Once a day 1 tablet as needed 24h Active Doxazosin Mesylate 2 MG Orally Once a day 1 tablet 24h Active Losartan Potassium 100 MG Orally Once a day 1 tablet 24h Active Klor-Con 20 MEQ Orally Once a day 1 tablet 24h Active Levothyroxine Sodium 150 MCG Orally Once a day 1 tablet on an empty stomach in the morning 24h Active Levothyroxine Sodium 175 MCG Orally Once a day 1 tablet on an empty stomach in the morning 24h Active Diltiazem HCl ER Beads 300 MG Orally Once a day 1 capsule 24h Active Triamterene-HCTZ 37.5-25 MG Orally Once a day 1 tablet in the morning 24h Active Gabapentin 400 MG Orally Three times a day 1 capsule 8h Active Torsemide 20 MG Active Pantoprazole Sodium 40 MG Orally Once a day 1 tablet 24h Active Hydrocodone-Acetaminophen 5-325 MG Orally 2 times a day 1 tablet as needed 12h Active Duloxetine HCl 60 MG Orally Once a day 1 capsule 24h Active Claritin 10 MG Orally Once a day 1 tablet 24h Aug, Active RESULTS Name Result Date Reference Range TSH W/ FREE T4 2016-09-13 TSH 2.870 0.450-4.500 T4,Free(Direct) 1.84 0.82-1.77 A1C 2016-09-13 Hemoglobin A1c 6.0 4.8-5.6 CBC 2016-09-13 WBC 8.3 3.4-10.8 RBC 5.05 3.77-5.28 Hemoglobin 14.1 11.1-15.9 Hematocrit 43.6 34.0-46.6 MCV 86 79-97 MCH 27.9 26.6-33.0 MCHC 32.3 31.5-35.7 RDW 14.9 12.3-15.4 Platelets 327 150-379 Neutrophils 62 Lymphs 29 Monocytes 7 Eos 1 Basos 1 Neutrophils (Absolute) 5.2 1.4-7.0 Lymphs (Absolute) 2.4 0.7-3.1 Monocytes(Absolute) 0.6 0.1-0.9 Eos (Absolute) 0.1 0.0-0.4 Baso (Absolute) 0.1 0.0-0.2 Immature Granulocytes 0 Immature Grans (Abs) 0.0 0.0-0.1 LIPID PANEL 2016-09-13 Cholesterol, Total 283 100-199 Triglycerides 178 0-149 HDL Cholesterol 53 >39 VLDL Cholesterol Frank 36 5-40 LDL Cholesterol Calc 194 0-99 CMP 2016-09-13 Glucose, Serum 106 65-99 BUN 12 8-27 Creatinine, Serum 1.02 0.57-1.00 eGFR If NonAfricn Am 56 >59 eGFR If Africn Am 64 >59 BUN/Creatinine Ratio 12 12-28 Sodium, Serum 142 134-144 Potassium, Serum 3.9 3.5-5.2 Chloride, Serum 93 96-106 Carbon Dioxide, Total 28 18-29 Calcium, Serum 9.2 8.7-10.3 Protein, Total, Serum 7.2 6.0-8.5 Albumin, Serum 4.5 3.5-4.8 Globulin, Total 2.7 1.5-4.5 A/G Ratio 1.7 1.2-2.2 Bilirubin, Total 0.4 0.0-1.2 Alkaline Phosphatase, S 84 39-117 AST (SGOT) 19 0-40 ALT (SGPT) 13 0-32 PROCEDURES Procedure Date Ordered Result Body Site MEASURE BLOOD OXYGEN LEVEL September 13, 2016 [facility] September 13, 2016 VENIPUNCT, ROUTINE* September 13, 2016 GLYCATED HEMOGLOBIN TEST September 13, 2016 [facility] VISIT NEW PATIENT September 13, 2016 INSTRUCTIONS MEDICATIONS ADMINISTERED No Known Medications MEDICAL (GENERAL) HISTORY Type Description Date Medical History Acid Reflux Medical History Hypertension Medical History Depression Medical History Rheumatoid Arthritis Medical History Hypothyroid Medical History Seasonal Allergies Surgical History Thyroidectomy Surgical History Cholecystectomy Surgical History Tonsilectomy Hospitalization History Disorientation-pt had stopped all medications, [facility] 2017
--- OUTSIDE RECORDS SUMMARY | 2018-09-01 09:24 | XMS REPORT ---
Author Author SUNIL MANN Organization [facility] Address [address] [place] [address] Care Team Providers Care Audiology Technician Name Role Phone SUNIL MANN Unavailable PROBLEMS Type Condition ICD9-CM Code YAX33-MG Code Onset Dates Condition Status SNOMED Code Problem Acquired hypothyroidism E03.9 Active 402329976 Problem Recurrent major depressive disorder, in partial remission F33.41 Active 56887918 Problem Essential hypertension I10 Active 64236483 ALLERGIES Substance Reaction Event Type Date Status Penicillin V Potassium Unknown Drug Allergy May, Active DiphenhydrAMINE HCl Unknown Drug Allergy May, Active Amoxicillin Unknown Drug Allergy May, Active ENCOUNTERS Encounter Location Date Diagnosis [place] [address] [place] [address] [id number] [place] [address] 78713- 9748 Aug, Medicare annual wellness visit, initial Z00.00 ; Recurrent major depressive disorder, in partial remission F33.41 ; Acquired hypothyroidism E03.9 ; Essential hypertension I10 ; Screening for breast cancer Z12.31 and Encounter for immunization Z23 [place] [address] [place] [address] 58780- 5156 Jul, [place] [address] [place] [address] [place] [address] 74633- 8273 Jun, [place] [address] [place] [address] [place] [address] 10181- [phone] Jun, Near syncope R55 [place] [address] [address] [place] [address] 97139- 7282 May, Acquired hypothyroidism E03.9 [place] [address] [place] [address] 52771- 1042 May, Acquired hypothyroidism E03.9 [place] [address] [place] [address]- 8477 May, Acquired hypothyroidism E03.9 [facility] [address] 4[address]- 7776 May, Acquired hypothyroidism E03.9 and Essential hypertension I10 [facility] [address] [place] [id number] [place] [phone] May, [facility] [address] [phone] Apr, Encounter for examination for admission to care home Z02.2 and Myxedema E03.9 [place] [address] 04634- 9123 Dec, Acute seasonal allergic rhinitis, unspecified trigger J30.2 ; Acquired hypothyroidism E03.9 ; Essential hypertension I10 and Screening for diabetes mellitus (DM) Z13.1 [place] [address] 89397- 2353 Dec, [facility] [id number] [place] [address] 06512- 2068 Dec, [facility] [address] 33931- 8145 Oct, [facility] [address] [place] [id number] [place] [address] 57489- 5865 Oct, Subclinical hypothyroidism E03.9 [facility] [address] 22125- 9593 Oct, Rheumatoid arthritis involving both knees, unspecified rheumatoid factor presence M06.9 ; Essential hypertension I10 ; Dizziness R42 and Subclinical hypothyroidism E03.9 [facility] [address] 74005- 4830 Aug, Subclinical hypothyroidism E03.9 [facility] [address] [id number] [place] [address] 89396- 7011 Aug, [facility] [address] 10544- 1525 Aug, Essential hypertension I10 ; Rheumatoid arthritis involving both knees, unspecified rheumatoid factor presence M06.9 ; Dizziness R42 and Screening for diabetes mellitus (DM) Z13.1 IMMUNIZATIONS No Known Immunizations SOCIAL HISTORY Never Assessed REASON FOR VISIT Thyroid f/u-AHarrymanRN PLAN OF CARE Activity Details Follow Up 2 Months with Scott cardona thyroid and HTN Reason: VITAL SIGNS Height 60 in 2017-06-06 Weight 203.6 lbs 2017-06-06 Temperature 98.2 degrees Fahrenheit 2017-06-06 Heart Rate 72 bpm 2017-06-06 Respiratory Rate 20 2017-06-06 Oximetry 96 % 2017-06-06 BMI 39.76 kg/m2 2017-06-06 Blood pressure systolic 130 mmHg 2017-06-06 Blood pressure diastolic 74 mmHg 2017-06-06 MEDICATIONS Medication Instructions Dosage Frequency Start Date End Date Duration Status Potassium Chloride ER 20 meq Orally Once a day 1 tablet with food 24h 90 days Active Doxazosin Mesylate 2 MG Orally Once a day 1 tablet 24h 30 days Active Diclofenac Active Melatonin 3 MG Orally at bedtime 1 tablet under the tongue and allow to dissolve at bedtime as needed with food Active Gabapentin 400 mg Orally Three times a day 1 capsule 8h 90 days Active Losartan Potassium 100 MG Orally Once a day 1 tablet 24h Not- Taking Norvasc 5 mg Orally Once a day 1 tablet 24h 90 days Active Pantoprazole Sodium 40 mg Orally Once a day 1 tablet 24h 90 days Active Triamterene-HCTZ 37.5-25 MG Orally Once a day 1 tablet in the morning 24h 90 days Active Claritin-D 24 Hour 10-240 MG Orally Once a day 1 tablet as needed 24h Oct, Jul, 30 days Active Aspirin 81 81 MG Orally Once a day 1 tablet 24h Active Duloxetine HCl 60 mg Orally Once a day 1 capsule 24h 90 days Active Levothyroxine Sodium 125 mcg Orally Once a day 1 tablet on an empty stomach in the morning 24h Dec, 90 days Active RESULTS No Results PROCEDURES Procedure Date Ordered Result Body Site MEASURE BLOOD OXYGEN LEVEL Jun 06, 2017 [facility] Jun [facility], 2017 [facility] VISIT ESTABLISHED PATIENT Jun 06, 2017 PIEDAD, ROUTINE* Jun 06, 2017 INSTRUCTIONS MEDICATIONS ADMINISTERED No Known Medications MEDICAL (GENERAL) HISTORY Type Description Date Medical History Acid Reflux Medical History Hypertension Medical History Depression Medical History Rheumatoid Arthritis Medical History Hypothyroid Medical History Seasonal Allergies Surgical History Thyroidectomy Surgical History Cholecystectomy Surgical History Tonsilectomy Hospitalization History Disorientation-pt had stopped all medications, [facility] 2016
--- OUTSIDE RECORDS SUMMARY | 2018-09-01 09:24 | XMS REPORT ---
Author Author KARI FOREMAN Organization [facility] Address [address] [place] [address] Care Team Providers Care Saw Tailer Name Role Phone KARI FOREMAN Unavailable PROBLEMS Type Condition ICD9-CM Code [id number] Code Onset Dates Condition Status SNOMED Code Problem Acquired hypothyroidism E03.9 Active 142912652 Problem Recurrent major depressive disorder, in partial remission F33.41 Active 41169423 Problem Essential hypertension I10 Active 19761008 ALLERGIES No Information ENCOUNTERS Encounter Location Date Diagnosis [place] [id number] [place] [id number] [place] [address] 77205- [phone] 18 Aug, 2017 Medicare annual wellness visit, initial Z00.00 ; Recurrent major depressive disorder, in partial remission F33.41 ; Acquired hypothyroidism E03.9 ; Essential hypertension I10 ; Screening for breast cancer Z12.31 and Encounter for immunization Z23 [place] [address] [place] [id number] [place] [address] 01308- 8785 Jul, [facility] [id number] [place] [address] 54994- 7432 15 Jun, 2017 [facility] [address] [place] [id number] [place] [address] 16091- 0413 Jun, Near syncope R55 [facility] [address] [place] [id number] [place] [address] 45538- 3633 May, Acquired hypothyroidism E03.9 [facility] [address] [place] [id number] [place] [address] 64112- 2876 May, Acquired hypothyroidism E03.9 [facility] [address] [place] [id number] [place] [address] 89490- 2486 May, Acquired hypothyroidism E03.9 [facility] [address] [place] [address] 91625- 0180 May, Acquired hypothyroidism E03.9 and Essential hypertension I10 [facility] [address] [id number] [place] [address] [phone] May, [facility] [address] [place] [phone] Apr, Encounter for examination for admission to prison Z02.2 and Myxedema E03.9 [place] [address] [place] [address] [id number] [place] [address] 05319- 4260 Dec, Acute seasonal allergic rhinitis, unspecified trigger J30.2 ; Acquired hypothyroidism E03.9 ; Essential hypertension I10 and Screening for diabetes mellitus (DM) Z13.1 [place] [address] [place] [id number] [place] [address] 63094- 9730 Dec, [place] [address] [place] [address] [id number] [place] [address] 07187- 3314 Dec, [place] [address] [place] [id number] [place] [address] 89496- 8550 Oct, [place] [address] [place] [id number] [place] [address] 09700- 0533 Oct, Subclinical hypothyroidism E03.9 [place] [address] [place] [id number] [place] [address] 92095- 3412 Oct, Rheumatoid arthritis involving both knees, unspecified rheumatoid factor presence M06.9 ; Essential hypertension I10 ; Dizziness R42 and Subclinical hypothyroidism E03.9 [place] [address] [id number] [place] [address] 08542- 6282 Aug, Subclinical hypothyroidism E03.9 [place] [address] [id number] [place] [address] 80273- 1745 Aug, [place] [address] [id number] [place] [address] 17574- 5766 Aug, Essential hypertension I10 ; Rheumatoid arthritis involving both knees, unspecified rheumatoid factor presence M06.9 ; Dizziness R42 and Screening for diabetes mellitus (DM) Z13.1 IMMUNIZATIONS No Known Immunizations SOCIAL HISTORY Never Assessed REASON FOR VISIT [facility] PLAN OF CARE VITAL SIGNS MEDICATIONS Unknown [...] Hospitalization History Disorientation-pt had stopped all medications, [facility] 2016
--- OUTSIDE RECORDS SUMMARY | 2018-09-01 09:24 | XMS REPORT ---
Author Author SUNIL MANN Organization [facility] Address [address] [place] [address] Care Team Providers Care Shoddy Mill Worker Name Role Phone SUNIL MANN Unavailable PROBLEMS Type Condition ICD9-CM Code [id number] Code Onset Dates Condition Status SNOMED Code Problem Acquired hypothyroidism E03.9 Active 643125706 Problem Recurrent major depressive disorder, in partial remission F33.41 Active 34281676 Problem Essential hypertension I10 Active 07621480 ALLERGIES No Known Allergies ENCOUNTERS Encounter Location Date Diagnosis [place] [id number] [address] September, [facility] [address] [address] 18 Aug, 2017 Medicare annual wellness visit, initial Z00.00 ; Recurrent major depressive disorder, in partial remission F33.41 ; Acquired hypothyroidism E03.9 ; Essential hypertension I10 ; Screening for breast cancer Z12.31 and Encounter for immunization Z23 [facility] [address] [place] [id number] [place] [address] Jul, [place] [address] [address] 15 Jun, 2017 [facility] [address] [place] [id number] [place] [address] Jun, Near syncope R55 [place] [address] [address] May, Acquired hypothyroidism E03.9 [place] [address] [place] [id number] [place] [address] 23717- 2[address] May, Acquired hypothyroidism E03.9 [facility] [address] [address] May, Acquired hypothyroidism E03.9 [facility] [id number] [place] [address] 84[address]- [address] May, Acquired hypothyroidism E03.9 and Essential hypertension I10 [facility] [address] [place] [id number] [place] [id number] May, Replaced By [facility] and [facility] [address] [place], [place] [phone] Apr, Encounter for examination for admission to correction Z02.2 and Myxedema E03.9 [facility] [address] [place] [id number] [place] [address] 91177- [address] Dec, Acute seasonal allergic rhinitis, unspecified trigger J30.2 ; Acquired hypothyroidism E03.9 ; Essential hypertension I10 and Screening for diabetes mellitus (DM) Z13.1 [facility] [address] [place] [id number] [place] [address] 55059- [address] Dec, [facility] [address] [address] [id number] [place] [address] 87617- [address] Dec, [facility] [address] [id number] [place] [address] 00328- 8[address] Oct, [facility] [address] [place] [id number] [place] [address] 04658- 1082 Oct, Subclinical hypothyroidism E03.9 [facility] [address] [place] [id number] [place] [address] 77474- 96[address] Oct, Rheumatoid arthritis involving both knees, unspecified rheumatoid factor presence M06.9 ; Essential hypertension I10 ; Dizziness R42 and Subclinical hypothyroidism E03.9 [facility] [address] [place] [id number] [place] [address] 01290- 5[address] Aug, Subclinical hypothyroidism E03.9 [facility] [address] [place] [id number] [place] [address] 58879- 77[address] Aug, [facility] [address] [place] [id number] [place] [address] 89626- 4[address] Aug, Essential hypertension I10 ; Rheumatoid arthritis involving both knees, unspecified rheumatoid factor presence M06.9 ; Dizziness R42 and Screening for diabetes mellitus (DM) Z13.1 IMMUNIZATIONS No Known Immunizations SOCIAL HISTORY Never Assessed REASON FOR VISIT Thyroid f/u -CATARINA Griffin PLAN OF CARE Activity Details Follow Up 3 Months f/u Gault HTN/HypoT Reason: VITAL SIGNS Height 60 in 2017-01-25 Weight 186 lbs 2017-01-25 Temperature 98 degrees Fahrenheit 2017-01-25 Heart Rate 76 bpm 2017-01-25 Respiratory Rate 20 2017-01-25 BMI 36.32 kg/m2 2017-01-25 Blood pressure systolic 130 mmHg 2017-01-25 Blood pressure diastolic 80 mmHg 2017-01-25 MEDICATIONS Medication Instructions Dosage Frequency Start Date End Date Duration Status Torsemide 20 mg Orally Once a day 2 tablets 24h 30 days Active Triamterene-HCTZ 37.5-25 MG Orally Once a day 1 tablet in the morning 24h 30 days Active Diltiazem HCl ER Beads 300 MG Orally Once a day 1 capsule 24h Active Doxazosin Mesylate 2 MG Orally Once a day 1 tablet 24h 30 days Active Pantoprazole Sodium 40 MG Orally Once a day 1 tablet 24h Active Duloxetine HCl 60 mg Orally Once a day 1 capsule 24h 30 days Active Claritin-D 24 Hour 10-240 MG Orally Once a day 1 tablet as needed 24h Oct, 5 Jul, 2017 30 days Active Levothyroxine Sodium 200 MCG Orally Once a day 1 tablet on an empty stomach in the morning 24h Dec, 30 day(s) Active Gabapentin 400 MG Orally Three times a day 1 capsule 8h Active Klor-Con 20 MEQ Orally Once a day 1 tablet 24h Jan, 30 days Active Potassium Chloride ER 20 meq Orally Once a day 1 tablet with food 24h Dec, Mar, 30 day(s) Active RESULTS Name Result Date Reference Range TSH W/ FREE T4 2017-01-25 TSH 0.216 0.450-4.500 T4,Free(Direct) 2.88 0.82-1.77 A1C 2017-01-25 Hemoglobin A1c 6.3 4.8-5.6 CBC 2017-01-25 WBC 11.2 3.4-10.8 RBC 5.51 3.77-5.28 Hemoglobin 15.3 11.1-15.9 Hematocrit 44.6 34.0-46.6 MCV 81 79-97 MCH 27.8 26.6-33.0 MCHC 34.3 31.5-35.7 RDW 15.4 12.3-15.4 Platelets 327 150-379 Neutrophils 71 Lymphs 22 Monocytes 7 Eos 0 Basos 0 Neutrophils (Absolute) 7.8 1.4-7.0 Lymphs (Absolute) 2.5 0.7-3.1 Monocytes(Absolute) 0.8 0.1-0.9 Eos (Absolute) 0.1 0.0-0.4 Baso (Absolute) 0.1 0.0-0.2 Immature Granulocytes 0 Immature Grans (Abs) 0.0 0.0-0.1 MICROALBUMIN/CREATININE RATIO, URINE 2017-01-25 Creatinine, Urine 63.9 Not Estab. Microalbumin, Urine 8.9 Not Estab. Microalb/Creat Ratio 13.9 0.0-30.0 CMP 2017-01-25 Glucose, Serum 117 65-99 BUN 36 8-27 Creatinine, Serum 1.53 0.57-1.00 eGFR If NonAfricn Am 34 >59 eGFR If Africn Am 39 >59 BUN/Creatinine Ratio 24 12-28 Sodium, Serum 139 134-144 Potassium, Serum 3.4 3.5-5.2 Chloride, Serum 88 96-106 Carbon Dioxide, Total 26 18-29 Calcium, Serum 10.5 8.7-10.3 Protein, Total, Serum 7.8 6.0-8.5 Albumin, Serum 4.7 3.5-4.8 Globulin, Total 3.1 1.5-4.5 A/G Ratio 1.5 1.2-2.2 Bilirubin, Total 0.4 0.0-1.2 Alkaline Phosphatase, S 90 39-117 AST (SGOT) 21 0-40 ALT (SGPT) 15 0-32 PROCEDURES Procedure Date Ordered Result Body Site LAB NOT BILLED BY [facility] Jan 25, 2017 Hemoglobin Test Send Out 0 dollar Jan 25, 2017 [facility] VISIT ESTABLISHED PATIENT Jan 25, 2017 VENIPUNCT, ROUTINE* Jan 25, 2017 INSTRUCTIONS MEDICATIONS ADMINISTERED No Known Medications MEDICAL (GENERAL) HISTORY Type Description Date Medical History Acid Reflux Medical History Hypertension Medical History Depression Medical History Rheumatoid Arthritis Medical History Hypothyroid Medical History Seasonal Allergies Surgical History Thyroidectomy Surgical History Cholecystectomy Surgical History Tonsilectomy Hospitalization History Disorientation-pt had stopped all medications, [facility] 2017
--- OUTSIDE RECORDS SUMMARY | 2018-09-01 09:24 | XMS REPORT ---
Author Author SUNIL MANN Organization [facility] Address [address] [place] [address] Care Team Providers Care Plastic Battery Assembler Name Role Phone SUNIL MANN Unavailable PROBLEMS Type Condition ICD9-CM Code [id number] Code Onset Dates Condition Status SNOMED Code Problem Acquired hypothyroidism E03.9 Active 937615821 Problem Recurrent major depressive disorder, in partial remission F33.41 Active 90101096 Problem Essential hypertension I10 Active 73065120 ALLERGIES No Information ENCOUNTERS Encounter Location Date Diagnosis [facility] [address] [address] Aug, Medicare annual wellness visit, initial Z00.00 ; Recurrent major depressive disorder, in partial remission F33.41 ; Acquired hypothyroidism E03.9 ; Essential hypertension I10 ; Screening for breast cancer Z12.31 and Encounter for immunization Z23 [facility] [address] [address] Jul, [facility] [address] [place] [id number] [place] [address] 15 Jun, 2017 [facility] [address] [address] Jun, Near syncope R55 [facility] [address] [place] [id number] [place] [address] May, Acquired hypothyroidism E03.9 [facility] [address] [address] May, Acquired hypothyroidism E03.9 [facility] [address] [place] [id number] [place] [address] 71266- 1139 May, Acquired hypothyroidism E03.9 [facility] [address] [place] [address] May, Acquired hypothyroidism E03.9 and Essential hypertension I10 [facility] [address] [id number] May, [facility] [address] [id number] Apr, Encounter for examination for admission to [facility] Z02.2 and Myxedema E03.9 [place] [address] [address] Dec, Acute seasonal allergic rhinitis, unspecified trigger J30.2 ; Acquired hypothyroidism E03.9 ; Essential hypertension I10 and Screening for diabetes mellitus (DM) Z13.1 [place] [address] [place] [id number] [place] [address] Dec, [place] [address] [place] [id number] [place] [address] 29618- 1146 Dec, [facility] [address] [place] [id number] [place] [address] 659[address]- 76[address] Oct, [place] [address] [place] [id number] [place] [address] 01595- 3261 Oct, Subclinical hypothyroidism E03.9 [place] [address] [place] [id number] [place] [address] 96321- [address] Oct, Rheumatoid arthritis involving both knees, unspecified rheumatoid factor presence M06.9 ; Essential hypertension I10 ; Dizziness R42 and Subclinical hypothyroidism E03.9 [facility] [address] [place] [id number] [place] [address] 77572- 7761 Aug, Subclinical hypothyroidism E03.9 [place] [address] [place] [id number] [place] [address] 18823- 1289 Aug, [facility] [address] [place] [id number] [place] [address] 69891- 4598 Aug, Essential hypertension I10 ; Rheumatoid arthritis involving both knees, unspecified rheumatoid factor presence M06.9 ; Dizziness R42 and Screening for diabetes mellitus (DM) Z13.1 IMMUNIZATIONS No Known Immunizations SOCIAL HISTORY Never Assessed REASON FOR VISIT tsh PLAN OF CARE VITAL SIGNS MEDICATIONS Unknown [...] Hospitalization History Disorientation-pt had stopped all medications, [facility] 2016
--- OUTSIDE RECORDS SUMMARY | 2018-09-01 09:24 | XMS REPORT ---
Author Author SUNIL MANN Organization [facility] Address [address] [place] [address] Care Team Providers Care Teacher Visually Impaired Name Role Phone SUNIL MANN Unavailable PROBLEMS Type Condition ICD9-CM Code [id number] Code Onset Dates Condition Status SNOMED Code Problem Acquired hypothyroidism E03.9 Active 013829068 Problem Recurrent major depressive disorder, in partial remission F33.41 Active 96901846 Problem Essential hypertension I10 Active 34772330 ALLERGIES No Information ENCOUNTERS Encounter Location Date Diagnosis [facility] [address] [address] 18 Aug, 2017 Medicare annual wellness visit, initial Z00.00 ; Recurrent major depressive disorder, in partial remission F33.41 ; Acquired hypothyroidism E03.9 ; Essential hypertension I10 ; Screening for breast cancer Z12.31 and Encounter for immunization Z23 [facility] [address] [address] 28 Jul, 2017 [facility] [address] [place] [id number] [place] [address]44- [address] 15 Jun, 2017 [facility] [address] [address] Jun, Near syncope R55 [facility] [address] [place] [id number] [place] [address] 9[address]12- [address] May, Acquired hypothyroidism E03.9 [facility] [address] [address] May, Acquired hypothyroidism E03.9 [facility] [address] [place] [id number] [place] [address] 88619- 8069 May, Acquired hypothyroidism E03.9 [facility] [address] [place] [address] May, Acquired hypothyroidism E03.9 and Essential hypertension I10 [facility] [address] [id number] May, [facility] and [facility] [address] [place] [id number] Apr, Encounter for examination for admission to prison Z02.2 and Myxedema E03.9 [place] [address] [address] Dec, Acute seasonal allergic rhinitis, unspecified trigger J30.2 ; Acquired hypothyroidism E03.9 ; Essential hypertension I10 and Screening for diabetes mellitus (DM) Z13.1 [place] [address] [place] [id number] [place] [address] Dec, [place] [address] [place] [id number] [place] [address]- [address] Dec, [facility] [address] [place] [id number] [place] [address] 25173- 2[address] Oct, [place] [address] [place] [id number] [place] [address] 29806- 3988 Oct, Subclinical hypothyroidism E03.9 [place] [address] [place] [id number] [place] [address] 04435- [address]50 Oct, Rheumatoid arthritis involving both knees, unspecified rheumatoid factor presence M06.9 ; Essential hypertension I10 ; Dizziness R42 and Subclinical hypothyroidism E03.9 [facility] [address] [place] [id number] [place] [address] 91040- 4794 Aug, Subclinical hypothyroidism E03.9 [place] [address] [place] [id number] [place] [address] 70468- 9545 Aug, [facility] [address] [place] [id number] [place] [address] 05123- 7452 Aug, Essential hypertension I10 ; Rheumatoid arthritis involving both knees, unspecified rheumatoid factor presence M06.9 ; Dizziness R42 and Screening for diabetes mellitus (DM) Z13.1 IMMUNIZATIONS No Known Immunizations SOCIAL HISTORY Never Assessed REASON FOR VISIT deferred lab PLAN OF CARE VITAL SIGNS MEDICATIONS [...] Hospitalization History Disorientation-pt had stopped all medications, [facility] 2016
[2018-09-01 09:30] VITALS: BP 181/102
[2018-09-01] MEDS ORDERED: MOXIFLOXACIN OPHTH SOLN 5 MG/ML 0.3 ML SYRINGE OP ONE (09:30)
[2018-09-01] MEDS ORDERED: POVIDONE (BETADINE) OPHTH SOLN 5% 30 ML OP ONE (09:30)
[2018-09-01] MEDS: TETRACAINE 0.5% OPHTH SOLN 4 ML BTL (SINGLE DOSE ONLY) OU PRN ×4 (09:30→09:52)
[2018-09-01] MEDS ORDERED: LIDOCAINE PF 1% 2 ML AMP IR PRN (09:30)
[2018-09-01] MEDS ORDERED: TIMOLOL MALEATE 0.5% 5 ML (TIMOPTIC) BTL OU PRN (09:30)
[2018-09-01] MEDS ORDERED: MIDAZOLAM 2 MG/2 ML (VERSED) VIAL ONE (09:39)
[2018-09-01] MEDS: PHENYLEPHRINE 10% OPHTH (NEO-SYN) 5 ML BTL OU SCH ×3 (09:41→09:52)
[2018-09-01] MEDS: CYCLOPENTOLATE 1% (CYCLOGYL) 2 ML DROPS OP SCH ×3 (09:41→09:52)
--- NOTE | 2018-09-01 09:54 | Ophthalmologist Pre-Op Note ---
Pre-Operative Progress Note H&P Reviewed The H&P was reviewed, patient examined and no changes noted. Date H&P Reviewed: Sep 01, 2018 Time H&P Reviewed: 09:54 Pre-Op Dx Cataract, Left Eye TABATHA CAO MD Sep 01, 2018 09:54
--- NOTE | 2018-09-01 10:16 | Ophthalmologist Pre-Op Note ---
Pre-Operative Progress Note H&P Reviewed The H&P was reviewed, patient examined and no changes noted. Date H&P Reviewed: Sep 01, 2018 Time H&P Reviewed: 10:16 Pre-Op Dx Cataract, Right Eye TABATHA CAO MD Sep 01, 2018 10:16
[2018-09-01 10:22] VITALS: BP 173/99
--- NOTE | 2018-09-01 10:42 | Ophthalmology Operative Report ---
Cataract removal/placement IOL PREOPERATIVE DIAGNOSIS: Cataract Right Eye POSTOPERATIVE DIAGNOSIS: Cataract Right Eye PROCEDURE: Cataract removal and placement of posterior chamber implant, right eye SURGEON: Christopher Cao ANESTHESIA: Topical with sedation COMPLICATIONS: None ESTIMATED BLOOD LOSS: Minimal DESCRIPTION OF PROCEDURE: After proper informed consent was obtained, the patient, a 72 female, was taken to the Operating Room and the right eye was anesthetized with tetracaine. The right eye was then prepped and draped in the usual manner. A wire lid speculum was placed. A paracentesis was made at the left hand position. Preservative free lidocaine was injected into the anterior chamber followed by viscoelastic. A clear corneal incision was made in the temporal position. A capsulorrhexis was preformed and the central nuclear and cortical material were removed. The posterior capsule was polished and Ryan 18.5 [id number] IOL was placed into the capsular bag. The residual viscoelastic was aspirated and balanced saline solution was injected into the anterior chamber. Moxifloxacin was injected into the anterior chamber. The wound was checked and found to be water tight. The patient tolerated the procedure well without complications. CHRISTOPHER CAO MD Sep 01, 2018 10:42
[2018-09-01] MEDS ORDERED: acetaZOLAMIDE ER 500 MG CAP (DIAMOX SEQUELS) PO ONE (11:00)
== END 2018-09-01 10:22 | disposition home or self-care (01) ==
LOC: SDC 09:19
PROVIDERS: ATTEND Specialist
DX: H25.12 Age-related nuclear cataract, left eye (principal); I10 Essential (primary) hypertension; Z79.82 Long term (current) use of aspirin; Z79.899 Other long term (current) drug therapy

== ENCOUNTER 2019-12-06 12:27 | Emergency (ER) | payer MEDICARE ==
[~2019-12-06] VITALS: Ht 160 cm; Wt 100.0 kg
[~2019-12-06 12:27] MED LIST changes: +CYAN-41 IM/IV; -CYAN10006 IM/IV; -DULO20CA18 PO; +DULO20CA19 PO; +DULO60CA59 PO; -MECL-106 PO; +MECL-149 PO; -MELA3TAB PO; +MELA3TAB39 PO
--- NOTE | 2019-12-06 12:55 | NUR ---
ATTEMPT TO CALL AND TALK WITH SISTER NO ANSWER.
--- NOTE | 2019-12-06 13:05 | NUR ---
ATTEMPT TO CALL SISTER BRADLEY NO ANSWER.
--- NOTE | 2019-12-06 13:08 | NUR ---
CALL [facility] TO KNOW WHY PATIENT WAS SENT
--- NOTE | 2019-12-06 13:15 | NUR ---
CALLED AND TALKED TO [facility] TALKED WITH JALIL AT [facility] BECAUSE FAMILY STATED TO CALL AND SEE WHAT THEY WANTED. DONE. JALIL HAD NO RECORD OF THEM BEING TOLD TO COME TO ER. AGAIN ATTEMPT TO CALL SISTER NO ANSWER LEFT MESSAGE.
--- NOTE | 2019-12-06 13:37 | NUR ---
ATTEMPT TO CALL OTHER SISTER PHONE NOT IN SERVICE.
--- NOTE | 2019-12-06 13:37 | ED General ---
General Chief Complaint: General Problems/Pain Stated Complaint: UTI Nursing Triage Note: TO ED PER W/C PATIENT REPORTS THAT HER SISTERS TOLD HER SHE WAS COMING TO ER. PATIENT REPORT HAD KNEE INJUCTION ON DECEMBER 03 AT [facility] KNEE NOT ANY BETER. [facility] VERFIED THAT INJECTION WA DONE ON DECEMBER 03 Nursing Sepsis Screen: No Definite Risk Source of Information: Patient Exam Limitations: No Limitations History of Present Illness Date Seen by Provider: Dec 06, 2019 Time Seen by Provider: 13:35 Initial Comments Patient was brought here by her sisters along with a note saying that she needed to be checked for urinary tract infection. Patient really has no complaints other than some medial left knee pain. She had a steroid injection in that knee a few weeks ago. Vital signs are normal. Sisters called back and said patient is had problems with her memory for 2 years. She had trouble recognizing her sister this morning so they brought her here for evaluation. Allergies and Home Medications Allergies Coded Allergies: amoxicillin (Verified Allergy, Mild, 10/10/16) Penicillins (Verified Allergy, Unknown, 07/05/11) diphenhydramine HCl (Verified Allergy, Unknown, 05/15/14) Home Medications Amlodipine Besylate 5 Mg Tablet, 5 MG PO DAILY Prescribed by: ALISHA TRIPLETT on 05/17/17 0990 Aspirin 81 Mg Tablet.dr, 81 MG PO DAILY, (Reported) Calcium Carbonate/Vitamin D3 1 Each Tablet, 1 EACH PO DAILY, (Reported) Duloxetine HCl 60 Mg Capsule.dr, 60 MG PO DAILY, (Reported) LAST FILLED #30 01-25-17 Duloxetine HCl 20 Mg Capsule.dr, PO DAILY, (Reported) Gabapentin 400 Mg Capsule, 400 MG PO TID, (Reported) LAST FILLED 08-27-16 #90 Levothyroxine Sodium 150 Mcg Tablet, 150 MCG PO DAILY, (Reported) Melatonin 3 Mg Tablet, 3 MG PO HS, (Reported) Meloxicam 7.5 Mg Tablet, 7.5 MG PO DAILY, (Reported) Mv-Mn/FA/Vit K/Lycop/Lut/Zeaxa 1 Each Tablet, 1 EACH PO DAILY, (Reported) Pantoprazole Sodium 40 Mg Tablet.dr, 40 MG PO DAILY, (Reported) LAST FILLED 10-18-16 #60 Sulfamethoxazole/Trimethoprim 1 Each Tablet, 1 EACH PO BID Prescribed by: STANFORD CAGLE on 12/06/19 1423 Patient Home Medication List Home Medication List Reviewed: Yes Review of Systems Review of Systems Constitutional: no symptoms reported Respiratory: no symptoms reported Cardiovascular: no symptoms reported Genitourinary: see HPI Musculoskeletal: no symptoms reported All Other Systems Reviewed Negative Unless Noted: Yes Past Dtqzgih-Hnygol-Ilikhc Hx Patient Social History 2nd Hand Smoke Exposure: No Recent Foreign Travel: No Contact w/Someone Who Travel: No Recent Infectious Disease Expo: No Recent Hopitalizations: No Immunizations Up To Date Tetanus Booster (TDap): More than 5yrs Date of Pneumonia Vaccine: Jan 28, 2011 Date of Influenza Vaccine: May 14, 2017 Seasonal Allergies Seasonal Allergies: Yes Past Medical History Surgeries: Yes (COLONOSCOPY) Breast, Gallbladder, Thyroidectomy, Tonsillectomy Respiratory: Yes (WEARS O2 @ NIGHT) Asthma, Pneumonia, Sleep Apnea Cardiac: Yes High Cholesterol, Hypertension, Irregular Heartbeat Neurological: Yes Headaches /Migraines, Neuropathy Reproductive Disorders: No Female Reproductive Disorders: Denies Sexually Transmitted Disease: No HIV/AIDS: No Genitourinary: No Gastrointestinal: Yes (H.PYLORI ULCERS) Gastroesophageal Reflux, Chronic Constipation, Hemorrhoids, Ulcer, Gall Bladder Disease Musculoskeletal: Yes Degenerate Disk Disease, Arthritis, Rheumatoid Arthritis, Chronic Back Pain Endocrine: Yes (OBESITY) Hypothyroidsim Cataract Loss of Vision: Denies Hearing Impairment: Denies Cancer: No Psychosocial: No Integumentary: No Blood Disorders: Yes (ANEMIA) Adverse Reaction/Blood Tranf: No Family Medical History Arthritis 19 FATHER G8 SISTER Colon cancer 19 MOTHER Diabetes mellitus 19 MOTHER Gastroenteritis G8 BROTHER Headache disorder 19 FATHER Hypercholesterolemia 19 MOTHER G8 BROTHER G8 SISTER Hypertension 19 MOTHER G8 BROTHER G8 SISTER Myocardial infarction 19 MOTHER G8 BROTHER G8 SISTER Neoplasm 19 FATHER Osteoporosis G8 SISTER No Family History of: AIDS Abdominal aortic aneurysm Agustin's disease Alcoholism Alzheimer's disease Aphasia Asthma Cancer of mouth Cardiovascular disease Cataracts Completed stroke Congenital disease Congenital heart disease Coronary thrombosis Cystic fibrosis Deafness or hearing loss Dementia Drug abuse Dysphasia Fibrocystic disease of breast Glaucoma Infertility Kidney disease Not obtainable due to adoption Parkinson's disease Prostate cancer Psychosocial problem Respiratory disorder Seizure disorder Severe allergy Thyroid disease Tuberculosis Visual disorder Heart Disease, Cancer, Diabetes, Hypertension, Stroke Physical Exam Vital Signs Vital Signs - First Documented 12/06/19 12:58 Temp 36.9 Pulse 73 Resp 18 B/P (MAP) 159/82 (107) Pulse Ox 95 Capillary Refill : Less Than 3 Seconds Height, Weight, BMI Height: 5'5.50" Weight: 159lbs. 4.0oz. 72.634215oj; 39.00 BMI Method:Stated General Appearance: No Apparent Distress, WD/WN Eyes: Bilateral Eye PERRL, Bilateral Eye EOMI HEENT: Pharynx Normal Neck: Supple Respiratory: Lungs Clear, Normal Breath Sounds Cardiovascular: Regular Rate, Rhythm, No Edema Gastrointestinal: Soft Extremity: Normal Range of Motion, Other (mildly tender along the course of her left mediocollateral ligament. No swelling noted. Full range of motion.) Neurologic/Psychiatric: Alert, Oriented x3, No Motor/Sensory Deficits, Normal Mood/Affect Skin: Normal Color, Warm/Dry Progress/Results/Core Measures Suspected Sepsis Recent Fever Within 48 Hours: No Infection Criteria Present: None New/Unexplained Altered Menta: No Sepsis Screen: No Definite Risk SIRS Temperature: Pulse: 73 Respiratory Rate: 18 Laboratory Tests 12/06/19 14:13: White Blood Count 17.0H Blood Pressure 159 /82 Mean: 107 Laboratory Tests 12/06/19 14:13: Creatinine 1.42H, Platelet Count 323, Total Bilirubin 0.3 Results/Orders Lab Results Laboratory Tests Test 12/06/19 13:45 12/06/19 14:13 Range/Units Urine Color YELLOW Urine Clarity CLEAR Urine pH 5.5 5-9 Urine Specific [place] 1.020 1.016-1.022 Urine Protein NEGATIVE NEGATIVE Urine Glucose (UA) NEGATIVE NEGATIVE Urine Ketones NEGATIVE NEGATIVE Urine Nitrite NEGATIVE NEGATIVE Urine Bilirubin NEGATIVE NEGATIVE Urine Urobilinogen 0.2 < = 1.0 MG/DL Urine Leukocyte Esterase 1+ H NEGATIVE Urine RBC (Auto) NEGATIVE NEGATIVE Urine RBC NONE /HPF Urine WBC 5-10 H /HPF Urine Squamous Epithelial Cells 2-5 /HPF Urine Crystals NONE /LPF Urine Bacteria TRACE /HPF Urine Casts NONE /LPF Urine Mucus NEGATIVE /LPF Urine Culture Indicated YES White Blood Count 17.0 H 4.3-11.0 10^3/uL Red Blood Count 4.97 4.35-5.85 10^6/uL Hemoglobin 13.6 11.5-16.0 G/DL Hematocrit 42 35-52 % Mean Corpuscular Volume 84 80-99 FL Mean Corpuscular Hemoglobin 27 25-34 PG Mean Corpuscular Hemoglobin Concent 33 32-36 G/DL Red Cell Distribution Width 15.0 H 10.0-14.5 % Platelet Count 323 130-400 10^3/uL Mean Platelet Volume 11.0 H 7.4-10.4 FL Neutrophils (%) (Auto) 82 H 42-75 % Lymphocytes (%) (Auto) 10 L 12-44 % Monocytes (%) (Auto) 8 0-12 % Eosinophils (%) (Auto) 0 0-10 % Basophils (%) (Auto) 0 0-10 % Neutrophils # (Auto) 13.9 H 1.8-7.8 X 10^3 Lymphocytes # (Auto) 1.8 1.0-4.0 X 10^3 Monocytes # (Auto) 1.4 H 0.0-1.0 X 10^3 Eosinophils # (Auto) 0.0 0.0-0.3 10^3/uL Basophils # (Auto) 0.0 0.0-0.1 10^3/uL Neutrophils % (Manual) 79 % Lymphocytes % (Manual) 15 % Monocytes % (Manual) 5 % Eosinophils % (Manual) 0 % Basophils % (Manual) 0 % Band Neutrophils 1 % Blood Morphology Comment NORMAL Sodium Level 139 135-145 MMOL/L Potassium Level 4.7 3.6-5.0 MMOL/L Chloride Level 108 H 98-107 MMOL/L Carbon Dioxide Level 20 L 21-32 MMOL/L Anion Gap 11 5-14 MMOL/L Blood Urea Nitrogen 29 H 7-18 MG/DL Creatinine 1.42 H 0.60-1.30 MG/DL Estimat Glomerular Filtration Rate 36 BUN/Creatinine Ratio 20 Glucose Level 89 70-105 MG/DL Calcium Level 8.5 8.5-10.1 MG/DL Corrected Calcium 8.5 8.5-10.1 MG/DL Magnesium Level 2.2 1.6-2.4 MG/DL Total Bilirubin 0.3 0.1-1.0 MG/DL Aspartate Amino Transf (AST/SGOT) 36 H 5-34 U/L Alanine Aminotransferase (ALT/SGPT) 14 0-55 U/L Alkaline Phosphatase 58 40-136 U/L Total Protein 7.3 6.4-8.2 GM/DL Albumin 4.0 3.2-4.5 GM/DL My Orders Orders - STANFORD CAGLE MD Ua Culture If Indicated (12/06/19 12:31) Cbc With Automated Diff (12/06/19 13:50) Comprehensive Metabolic Panel (12/06/19 13:50) Magnesium (12/06/19 13:50) Urine Culture (12/06/19 13:45) Manual Differential (12/06/19 14:13) Chest 1 View, Ap/Pa Only (12/06/19 14:25) Vital Signs/I&O 12/06/19 12:58 Temp 36.9 Pulse 73 Resp 18 B/P (MAP) 159/82 (107) Pulse Ox 95 Capillary Refill : Less Than 3 Seconds Blood Pressure Mean: 107 Progress Note : Progress Note Sounds like patient has some problems with dementia. We'll check baseline labs. Referred to [facility]. Elevated white count likely due to UTI. Will treat with Bactrim. Patient stable for discharge. Departure Impression Primary Impression: Urinary tract infection Additional Impression: Memory changes Disposition: 01 HOME, SELF-CARE Condition: Stable Departure-Patient Inst. Decision time for Depature: 13:52 Referrals: SUNIL MANN MD (PCP/Family) Primary Care Physician Patient Instructions: Urinary Tract Infection, Adult (DC) Add. Discharge Instructions: Follow-up with [facility] as soon as possible. Take anabolic as prescribed. All discharge instructions reviewed with patient and/or family. Voiced understanding. Scripts Sulfamethoxazole/Trimethoprim (Bactrim Ds Tablet) 1 Each Tablet 1 EACH PO BID, #10 TAB Prov: STANFORD CAGLE MD 12/06/19 STANFORD CAGLE MD Dec 06, 2019 13:37
[2019-12-06 13:55] LABS: BILIRUBIN,URINE NEGATIVE (NEGATIVE); CLARITY,URINE CLEAR; COLOR,URINE YELLOW; GLUCOSE, URINE (UA) NEGATIVE (NEGATIVE); KETONES,URINE NEGATIVE (NEGATIVE); LEUKOCYTE ESTERASE ,URINE 1+ (NEGATIVE); NITRITE,URINE NEGATIVE (NEGATIVE); PH,URINE 5.5 (5-9); PROTEIN,URINE NEGATIVE (NEGATIVE)
[2019-12-06 14:06] LABS: BACTERIA,URINE TRACE /HPF
[2019-12-06 14:22] LABS: BASOPHILS % (AUTO) 0 % (0-10); EOSINOPHILS % (AUTO) 0 % (0-10); HEMATOCRIT 42 % (35-52); HEMOGLOBIN 13.6 G/DL (11.5-16.0); LYMPHOCYTES # (AUTO) 1.8 X 10^3 (1.0-4.0); LYMPHOCYTES % (AUTO) 10 % (12-44); MEAN CORPUSCULAR HEMOGLOBIN 27 PG (25-34); MEAN CORPUSCULAR HGB CONC 33 G/DL (32-36); MEAN CORPUSCULAR VOLUME 84 FL (80-99); MONOCYTES # (AUTO) 1.4 X 10^3 (0.0-1.0); MONOCYTES % (AUTO) 8 % (0-12); NEUTROPHILS # (AUTO) 13.9 X 10^3 (1.8-7.8); NEUTROPHILS % (AUTO) 82 % (42-75); PLATELET COUNT 323 10^3/uL (130-400)
[2019-12-06] MEDS ORDERED: SULF1TAB35 PO (14:23)
[2019-12-06 14:32] LABS: POTASSIUM 4.7 MMOL/L (3.6-5.0)
[2019-12-06 14:33] LABS: CALCIUM 8.5 MG/DL (8.5-10.1)
[2019-12-06 14:34] LABS: TOTAL PROTEIN 7.3 GM/DL (6.4-8.2)
[2019-12-06 14:36] LABS: BILIRUBIN,TOTAL 0.3 MG/DL (0.1-1.0)
[2019-12-06 14:37] LABS: BAND NEUTROPHILS 1 %; LYMPHOCYTES % (MANUAL) 15 %; NEUTROPHILS % (MANUAL) 79 %
[2019-12-06 14:38] LABS: BASOPHILS % (MANUAL) 0 %; CREATININE SERUM 1.42 MG/DL (0.60-1.30); EOSINOPHILS % (MANUAL) 0 %; MONOCYTES % (MANUAL) 5 %; RBC MORPH NORMAL
[2019-12-06 14:40] LABS: MAGNESIUM 2.2 MG/DL (1.6-2.4)
--- NOTE | 2019-12-06 15:03 | Diagnostic Imaging Report ---
PATIENT HISTORY: Altered mental status. TECHNIQUE: Single frontal view of the chest. COMPARISON: 05/14/2017. FINDINGS: The lung volumes are normal. No focal consolidation is seen. Aeration actually appears improved compared to the 2017 exam. No large pleural effusion or pneumothorax is seen. The cardiomediastinal silhouette is normal in size and contour. No acute osseous abnormality is seen. IMPRESSION: No acute pulmonary abnormality seen. Dictated by: Dictated on workstation # [id number]
--- NOTE | 2019-12-06 15:39 | NUR ---
CALLED AND TALKD WITH SISTER BRADLEY GAVE HER DISCHARGE INSTRUCTIONS,.
[2019-12-06 15:46] VITALS: BP 180/100
== END 2019-12-06 16:00 | disposition home or self-care (01) ==
LOC: EDUNIT# 12:27 → ER 12:28
DX: N39.0 Urinary tract infection, site not specified (principal); R41.3 Other amnesia; G62.9 Polyneuropathy, unspecified; I10 Essential (primary) hypertension; E03.9 Hypothyroidism, unspecified; M06.9 Rheumatoid arthritis, unspecified; K21.9 Gastro-esophageal reflux disease without esophagitis; G89.29 Other chronic pain; M54.9 Dorsalgia, unspecified; E66.9 Obesity, unspecified; Z79.1 Long term (current) use of non-steroidal anti-inflammatories (NSAID); Z88.8 Allergy status to other drugs, medicaments and biological substances; Z79.82 Long term (current) use of aspirin; Z79.890 Hormone replacement therapy; Z68.39 Body mass index [BMI] 39.0-39.9, adult; Z88.0 Allergy status to penicillin; Z80.0 Family history of malignant neoplasm of digestive organs; Z82.49 Family history of ischemic heart disease and other diseases of the circulatory system
CPT/HCPCS: 36415; 71045; 80053; 81000; 83735; 85007; 85027; 87088

== ENCOUNTER → 2019-12-17 | Outpatient (CLI) | payer MEDICARE ==
[~2019-12-17] MED LIST changes: +SULF1TAB35 PO
--- NOTE | 2019-12-17 13:10 | Diagnostic Imaging Report ---
INDICATION: Routine screening. Comparison is made with prior mammogram from 11/12/2014 and 07/31/2013. 2-D and 3-D bilateral screening mammography was performed with CAD. Scattered fibroglandular densities are identified bilaterally. Benign parenchymal and vascular calcifications are identified bilaterally. Asymmetric densities noted in both breasts appear to be fairly stable. No new mass or malignant appearing microcalcifications are identified. Axillae are unremarkable. IMPRESSION: BI-RADS Category 2 No mammographic features suspicious for malignancy are identified. ACR BI-RADS Category 2: Benign findings. Result letter will be mailed to the patient. Note: At least 10% of breast cancer is not imaged by mammography. Dictated by: Dictated on workstation # [id number]
== END ==
LOC: RAD 11:24
PROVIDERS: ATTEND Family Medicine
DX: Z12.31 Encounter for screening mammogram for malignant neoplasm of breast (principal)
CPT/HCPCS: 77063; 77067

== ENCOUNTER 2022-12-26 12:33 | Emergency (ER) | payer MEDICARE ==
[~2022-12-26] VITALS: Ht 162.6 cm; Wt 68.0 kg
[~2022-12-26 12:33] MED LIST changes: +AMLO-250 PO; -AMLO5TAB9 PO; +ASPI-1238 PO; -ASPI-983 PO; +DICL100G13 TOP; -DICL100G31 TOP; -PANT40TA3 PO; +PANT40TA52 PO; +POTA-330 PO; -POTA-51 PO; -SULF1TAB35 PO; +SULF1TAB38 PO
[2022-12-26] MEDS ORDERED: fentaNYL INJ 100 MCG/2 ML AMP IVP ONE (13:00)
--- NOTE | 2022-12-26 13:04 | ED General ---
General Chief Complaint: General Problems/Pain Stated Complaint: AMS Nursing Triage Note: PT TO ROOM 07 VIA [facility] FROM [facility] WITH C/O AMS. AC&R STAFF STATE PT IS LESS REPSONSIVE THAT NORMAL AND MAY BE BEHAVIORIAL. Source of Information: Patient Exam Limitations: No Limitations History of Present Illness Date Seen by Provider: Dec 26, 2022 Time Seen by Provider: 12:47 Initial Comments This 77-year-old woman presents to the emergency room via EMS from [facility] with report of altered mental status. Reportedly staff spoke to her at 0653 and administered medications. Patient skipped breakfast and remained in bed. She was then found at 1115 in an essentially unresponsive state. On arrival to the ER she is minimally responsive for nursing staff. On my examination after nursing triage at 1247, patient is speaking in full sentences and answering questions appropriately. She is generally weak but is moving all 4 extremities equally and does not appear to have any obvious focal neurologic deficit. She is markedly hypertensive with a blood pressure of 204/90. She complains of severe headache and some neck pain. She does not report any other symptoms at this time. No trauma was reported by staff or the patient. She did take her morning medications at 0653. Blood sugar was 91. It was reported through nursing staff that patient has had episodes similar to this in the past that were believed to be behavioral in nature. Allergies and Home Medications Allergies Coded Allergies: amoxicillin (Verified Allergy, Mild, 10/10/16) Penicillins (Verified Allergy, Unknown, 07/05/11) diphenhydramine HCl (Verified Allergy, Unknown, 05/15/14) Patient Home Medication List Home Medication List Reviewed: Yes Amlodipine Besylate (Amlodipine Besylate) 5 Mg Tablet, 5 MG PO DAILY Prescribed by: ALISHA TRIPLETT on 05/17/17 0943 Aspirin (Aspirin EC) 81 Mg Tablet., 81 MG PO DAILY, (Reported) Entered as Reported by: ROBERTO ALFARO on 05/13/17 0844 Calcium Carbonate/Vitamin D3 (Caltrate 600 + D Tablet) 1 Each Tablet, 1 EACH PO DAILY, (Reported) Entered as Reported by: JAMESON BEARDEN on 08/21/18 1039 Duloxetine HCl (Duloxetine HCl) 60 Mg Capsule., 60 MG PO DAILY, (Reported) Entered as Reported by: ROBERTO ALFARO on 05/13/17 0844 Duloxetine HCl (Duloxetine HCl) 20 Mg Capsule.dr, PO DAILY, (Reported) Entered as Reported by: JAMESON BEARDEN on 08/21/18 1039 Gabapentin (Gabapentin) 400 Mg Capsule, 400 MG PO TID, (Reported) Entered as Reported by: NATALIYA MICHAEL on 10/10/16 1328 Levothyroxine Sodium (Levothyroxine Sodium) 150 Mcg Tablet, 150 MCG PO DAILY, (Reported) Entered as Reported by: JAMESON BEARDEN on 08/21/18 1039 Melatonin (Melatonin) 3 Mg Tablet, 3 MG PO HS, (Reported) Entered as Reported by: JAMESON BEARDEN on 08/21/18 1039 Meloxicam (Meloxicam) 7.5 Mg Tablet, 7.5 MG PO DAILY, (Reported) Entered as Reported by: JAMESON BEARDEN on 08/21/18 1039 Mv-Mn/FA/Vit K/Lycop/Lut/Zeaxa (Ocuvite Eye + Multi Tablet) 1 Each Tablet, 1 EACH PO DAILY, (Reported) Entered as Reported by: JAMESON BEARDEN on 08/21/18 1039 Pantoprazole Sodium (Pantoprazole Sodium) 40 Mg Tablet.dr, 40 MG PO DAILY, (Reported) Entered as Reported by: ROBERTO ALFARO on 10/11/16 0853 Sulfamethoxazole/Trimethoprim (Bactrim Ds Tablet) 1 Each Tablet, 1 EACH PO BID Prescribed by: STANFORD CAGLE on 12/06/19 1423 Review of Systems Review of Systems Constitutional: no symptoms reported EENTM: no symptoms reported Respiratory: no symptoms reported Cardiovascular: see HPI Gastrointestinal: no symptoms reported Genitourinary: no symptoms reported : No Musculoskeletal: see HPI Skin: no symptoms reported Psychiatric/Neurological: See HPI Hematologic/Lymphatic: No Symptoms Reported Past Mwnayzf-Irkwhw-Lonscw Hx Patient Social History Tobacco Use?: No Smoking Status: Never a Smoker Smokeless Tobacco Frequency: Never a User Use of E-Cig and/or Vaping dev: No Use of E-Cig and/or Vaping Raza: Never a User Substance use?: No Alcohol Use?: No Pt feels they are or have been: No Immunizations Up To Date Tetanus Booster (TDap): More than 5yrs Seasonal Allergies Seasonal Allergies: Yes Past Medical History Surgeries: Yes (COLONOSCOPY) Breast, Gallbladder, Thyroidectomy, Tonsillectomy Respiratory: Yes (WEARS O2 @ NIGHT) Asthma, Pneumonia, Sleep Apnea Cardiac: Yes High Cholesterol, Hypertension, Irregular Heartbeat Neurological: Yes Headaches /Migraines, Neuropathy Reproductive Disorders: No Female Reproductive Disorders: Denies Sexually Transmitted Disease: No HIV/AIDS: No Genitourinary: No Gastrointestinal: Yes (H.PYLORI ULCERS) Gastroesophageal Reflux, Chronic Constipation, Hemorrhoids, Ulcer, Gall Bladder Disease Musculoskeletal: Yes Degenerate Disk Disease, Arthritis, Rheumatoid Arthritis, Chronic Back Pain Endocrine: Yes (OBESITY) Hypothyroidsim Cataract Loss of Vision: Denies Hearing Impairment: Denies Cancer: No Psychosocial: No Integumentary: No Blood Disorders: Yes (ANEMIA) Adverse Reaction/Blood Tranf: No Family Medical History Arthritis 19 FATHER G8 SISTER Colon cancer 19 MOTHER Diabetes mellitus 19 MOTHER Gastroenteritis G8 BROTHER Headache disorder 19 FATHER Hypercholesterolemia 19 MOTHER G8 BROTHER G8 SISTER Hypertension 19 MOTHER G8 BROTHER G8 SISTER Myocardial infarction 19 MOTHER G8 BROTHER G8 SISTER Neoplasm 19 FATHER Osteoporosis G8 SISTER No Family History of: AIDS Abdominal aortic aneurysm Brandt's disease Alcoholism Alzheimer's disease Aphasia Asthma Cancer of mouth Cardiovascular disease Cataracts Completed stroke Congenital disease Congenital heart disease Coronary thrombosis Cystic fibrosis Deafness or hearing loss Dementia Drug abuse Dysphasia Fibrocystic disease of breast Glaucoma Infertility Kidney disease Not obtainable due to adoption Parkinson's disease Prostate cancer Psychosocial problem Respiratory disorder Seizure disorder Severe allergy Thyroid disease Tuberculosis Visual disorder Heart Disease, Cancer, Diabetes, Hypertension, Stroke Physical Exam Vital Signs Vital Signs - First Documented 12/26/22 12/26/22 12:37 17:06 Temp 36.0 Pulse 47 Resp 15 B/P (MAP) 204/90 (128) Pulse Ox 93 O2 Delivery Room Air Capillary Refill : Less Than 3 Seconds Height, Weight, BMI Height: 5'5.50" Weight: 159lbs. 4.0oz. 72.642585nr; 25.00 BMI Method:Stated Progress/Results/Core Measures Suspected Sepsis SIRS Temperature: Pulse: 47 Respiratory Rate: 15 Laboratory Tests 12/26/22 12:40: White Blood Count 5.7 Blood Pressure 204 /90 Mean: 128 Laboratory Tests 12/26/22 12:40: Creatinine 0.95, Platelet Count 211, Total Bilirubin 0.6 Results/Orders Lab Results Laboratory Tests Test 12/26/22 12:40 Range/Units White Blood Count 5.7 4.3-11.0 10^3/uL Red Blood Count 5.13 H 3.80-5.11 10^6/uL Hemoglobin 14.6 11.5-16.0 g/dL Hematocrit 46 35-52 % Mean Corpuscular Volume 89 80-99 fL Mean Corpuscular Hemoglobin 29 25-34 pg Mean Corpuscular Hemoglobin Concent 32 32-36 g/dL Red Cell Distribution Width 14.3 10.0-14.5 % Platelet Count 211 130-400 10^3/uL Mean Platelet Volume 12.0 9.0-12.2 fL Immature Granulocyte % (Auto) 0 % Neutrophils (%) (Auto) 51 42-75 % Lymphocytes (%) (Auto) 36 12-44 % Monocytes (%) (Auto) 8 0-12 % Eosinophils (%) (Auto) 4 0-10 % Basophils (%) (Auto) 1 0-10 % Neutrophils # (Auto) 2.9 1.8-7.8 10^3/uL Lymphocytes # (Auto) 2.0 1.0-4.0 10^3/uL Monocytes # (Auto) 0.5 0.0-1.0 10^3/uL Eosinophils # (Auto) 0.2 0.0-0.3 10^3/uL Basophils # (Auto) 0.1 0.0-0.1 10^3/uL Immature Granulocyte # (Auto) 0.0 0.0-0.1 10^3/uL Sodium Level 142 135-145 MMOL/L Potassium Level 3.7 3.6-5.0 MMOL/L Chloride Level 106 98-107 MMOL/L Carbon Dioxide Level 26 21-32 MMOL/L Anion Gap 10 5-14 MMOL/L Blood Urea Nitrogen 14 7-18 MG/DL Creatinine 0.95 0.60-1.30 MG/DL Estimat Glomerular Filtration Rate 62 BUN/Creatinine Ratio 15 Glucose Level 89 70-105 MG/DL Glucometer 91 70-110 MG/DL Calcium Level 8.8 8.5-10.1 MG/DL Corrected Calcium 8.8 8.5-10.1 MG/DL Magnesium Level 2.3 1.6-2.4 MG/DL Total Bilirubin 0.6 0.1-1.0 MG/DL Aspartate Amino Transf (AST/SGOT) 15 5-34 U/L Alanine Aminotransferase (ALT/SGPT) 9 0-55 U/L Alkaline Phosphatase 53 40-136 U/L B-Type Natriuretic Peptide 116.0 H <100.0 PG/ML Total Protein 6.9 6.4-8.2 GM/DL Albumin 4.0 3.2-4.5 GM/DL Thyroid Stimulating Hormone (TSH) 4.12 0.35-4.94 UIU/ML Free Thyroxine 1.07 0.70-1.48 NG/DL My Orders Orders - RICK BRADY MD Ekg Tracing (12/26/22 12:48) Ct Head Wo-R/O Stroke (12/26/22 12:53) Ct Cervical Spine Wo (12/26/22 12:53) Bnp Stephanie (12/26/22 12:55) Cbc With Automated Diff (12/26/22 12:55) Comprehensive Metabolic Panel (12/26/22 12:55) Magnesium (12/26/22 12:55) Thyroid Stimulating Hormone (12/26/22 12:55) Ua Culture If Indicated (12/26/22 12:55) Ed Iv/Invasive Line Start (12/26/22 12:55) Chest 1 View, Ap/Pa Only (12/26/22 12:55) Free T4 (Free Thyroxine) (12/26/22 12:55) Fentanyl Inj (Sublimaze Injection) (12/26/22 13:00) Arterial Blood Gas (12/26/22 13:04) Knee, Left, 3 Views (12/26/22 14:03) Medications Given in ED Current Medications Medications Dose Ordered Sig/Valery Route Start Time Stop Time Status Last Admin Dose Admin Fentanyl Citrate 50 mcg ONCE ONCE IVP 12/26/22 13:00 12/26/22 13:01 DC 12/26/22 12:59 50 MCG Vital Signs/I&O 12/26/22 12/26/22 12:37 17:06 Temp 36.0 36.0 Pulse 47 48 Resp 15 15 B/P (MAP) 204/90 (128) 184/85 Pulse Ox 93 O2 Delivery Room Air Room Air Capillary Refill : Less Than 3 Seconds Blood Pressure Mean: 128 Progress Note #1: Time: 14:04 Progress Note Labs have been reviewed and interpreted by me. CBC, CMP, thyroid studies, BNP and magnesium are all unremarkable. CT of the head was viewed by me. There were age-related changes without acute hemorrhage or mass by my interpretation. Radiologist report agrees with this interpretation. No acute findings were noted on radiologist report of CT cervical spine. No acute fractures or dislocations were appreciated on my interpretation of CT C-spine. Blood pressure has trended toward normal without interventions. Blood pressure is presently 110/82. Heart rate is 49 with sinus bradycardia on the monitor. Based on patient's presentation, CT angiogram of the head and neck was considered. However, patient was reassessed and found to be active, alert, and demonstrating no focal neurologic deficits. She did complain of left knee pain which she states has not yet been evaluated. X-rays of the left knee have been ordered. Progress Note #2: Time: 15:11 Progress Note Patient has been asymptomatic for over an hour. She has been up walking about the room. Blood pressures have been labile. The monitor and cuff were changed. Blood pressures on reexamination after new monitoring cuff were 165/85 on the left and 168/91 on the right. Patient appears stable for discharge at this time. X-rays of the right knee were reviewed by me. No fractures or dislocations were appreciated. She does have severe arthritic changes. These findings were also reported by the radiologist. Radiologist's report was reviewed. ECG Initial ECG Impression Date: Dec 26, 2022 Initial ECG Impression Time: 12:40 Initial ECG Rate: 46 Initial ECG Rhythm: S.Kurtis Comment Sinus bradycardia with no ST elevation or depression. No abnormal intervals or axis deviation. Departure Impression Primary Impression: Labile hypertension Additional Impressions: Acute headache Qualified Codes: R51.9 - Headache, unspecified Altered mental status Qualified Codes: R41.82 - Altered mental status, unspecified Osteoarthritis of left knee Qualified Codes: M17.12 - Unilateral primary osteoarthritis, left knee Disposition: 01 HOME, SELF-CARE Condition: Improved Departure-Patient Inst. Referrals: SUNIL MANN MD (PCP/Family) Primary Care Physician Patient Instructions: Osteoarthritis (DC), Headache, Adult ED Add. Discharge Instructions: Follow-up with your primary care provider as soon as possible. Call tomorrow morning for an appointment time. Until then, continue medications as previously prescribed. Discuss your fluctuating blood pressure and arthritis in your left knee at your follow-up appointment. Return to the emergency room if you have worsening symptoms or recurrent episodes of severe headache, severely high blood pressure, or altered mental status. All discharge instructions reviewed with patient and/or family. Voiced understanding. Copy Copies To 1: [facility]/RICK RODRÍGUEZ MD Dec 26, 2022 13:04
[2022-12-26 13:06] LABS: BASOPHILS # (AUTO) 0.1 10^3/uL (0.0-0.1); BASOPHILS % (AUTO) 1 % (0-10); EOSINOPHILS # (AUTO) 0.2 10^3/uL (0.0-0.3); EOSINOPHILS % (AUTO) 4 % (0-10); HEMATOCRIT 46 % (35-52); HEMOGLOBIN 14.6 g/dL (11.5-16.0); LYMPHOCYTES % (AUTO) 36 % (12-44); MEAN CORPUSCULAR HEMOGLOBIN 29 pg (25-34); MEAN CORPUSCULAR HGB CONC 32 g/dL (32-36); MEAN CORPUSCULAR VOLUME 89 fL (80-99); MONOCYTES # (AUTO) 0.5 10^3/uL (0.0-1.0); MONOCYTES % (AUTO) 8 % (0-12); NEUTROPHILS # (AUTO) 2.9 10^3/uL (1.8-7.8); NEUTROPHILS % (AUTO) 51 % (42-75); PLATELET COUNT 211 10^3/uL (130-400); POTASSIUM 3.7 MMOL/L (3.6-5.0); WHITE BLOOD COUNT 5.7 10^3/uL (4.3-11.0)
[2022-12-26 13:07] LABS: CALCIUM 8.8 MG/DL (8.5-10.1)
[2022-12-26 13:08] LABS: TOTAL PROTEIN 6.9 GM/DL (6.4-8.2)
[2022-12-26 13:10] LABS: BILIRUBIN,TOTAL 0.6 MG/DL (0.1-1.0)
[2022-12-26 13:12] LABS: CREATININE SERUM 0.95 MG/DL (0.60-1.30)
[2022-12-26 13:15] LABS: MAGNESIUM 2.3 MG/DL (1.6-2.4)
[2022-12-26 13:36] LABS: FREE T4 (FREE THYROXINE) 1.07 NG/DL (0.70-1.48)
--- NOTE | 2022-12-26 13:37 | Diagnostic Imaging Report ---
EXAMINATION: CT head without contrast. TECHNIQUE: Multiple contiguous axial images were obtained through the brain without the use of intravenous contrast. All CT scans use one or more of the following dose optimizing techniques: automated exposure control, MA and/or KvP adjustment based on patient size and exam type or iterative reconstruction. HISTORY: Altered mental status. Focal neurologic deficit. Stroke alert. COMPARISON: 05/12/2017. FINDINGS: No large acute territorial ischemia, mass, or hemorrhage. No midline shift or mass effect. Decreased attenuation is seen in the periventricular and subcortical white matter. The ventricles and cortical sulci are prominent. The basilar cisterns are patent and unremarkable. The orbits are normal. There is opacification and wall thickening of the right maxillary sinus. Mastoid air cells are clear. No soft tissue abnormality is seen. No osseus lesions or fractures are seen. IMPRESSION: 1. No large acute territorial ischemia, mass, or hemorrhage. 2. Chronic microvascular disease. 3. Generalized parenchymal volume loss. 4. Chronic sinusitis involving the right maxillary sinus. Dictated by: Dictated on workstation # [id number]
--- NOTE | 2022-12-26 13:41 | Diagnostic Imaging Report ---
PROCEDURE: CT cervical spine without contrast. TECHNIQUE: Multiple contiguous axial images were obtained through the cervical spine without the use of intravenous contrast. Sagittal and coronal reformations were then performed. Auto Exposure Controls were utilized during the CT exam to meet ALARA standards for radiation dose reduction. INDICATION: Neuro deficit, altered mental status, pain. COMPARISON: 01/08/2016 FINDINGS: 4 mm grade 1 anterolisthesis of C7 on T1. Alignment of the cervical spine is otherwise well maintained. Alignment of the left occipital joint is well maintained. Besides scattered endplate degenerative changes, vertebral body heights are well maintained without evidence of a recent vertebral body compression deformity. Moderate disc space height loss at C4/C5, C6/C7, and C7/T1. No acute fracture or dislocation. No destructive osseous process. Scattered facet joint degenerative changes and uncovertebral joint hypertrophy. There is resulting significant multilevel neural foraminal stenosis bilaterally. This includes high-grade bilateral neural foraminal stenosis at the C4/C5 level. Multilevel disc bulges are also present. There is resulting significant central canal stenosis at the C4/C5 and C5/C6 level at minimum. No apical pneumothorax. The paraspinal soft tissues are unremarkable IMPRESSION: No acute osseous abnormality with moderate multilevel degenerative changes with resultant multilevel central canal and neural foraminal stenosis. Grade 1 anterolisthesis of C7 on T1, felt to be degenerative in nature. Dictated by: Dictated on workstation # [id number]
--- NOTE | 2022-12-26 13:51 | Diagnostic Imaging Report ---
EXAMINATION: Chest 1 view HISTORY: Hypertension. COMPARISON: 12/06/2019. FINDINGS: The lung volumes are normal. No focal consolidation is seen. No large pleural effusion or pneumothorax is seen. The cardiomediastinal silhouette is normal in size and contour. No acute osseous abnormality is seen. IMPRESSION: 1. No acute pleuroparenchymal process. Dictated by: Dictated on workstation # [id number]
--- NOTE | 2022-12-26 14:34 | Diagnostic Imaging Report ---
CLINICAL HISTORY: Left-sided knee pain. Fall. COMPARISON: 05/15/2014. TECHNIQUE: 3 views of the left knee. FINDINGS: There is no acute fracture or dislocation of the left knee. Alignment is anatomic. Advanced degenerative changes are seen in the left knee with joint space narrowing, marginal osteophytes, and subchondral sclerosis. These are greatest in the medial compartment. No joint effusion. IMPRESSION: 1. No acute fracture or dislocation in the left knee. 2. Advanced osteoarthritis in the left knee. Findings have significantly progressed since the prior exam from 2013. Dictated by: Dictated on workstation # [id number]
[2022-12-26 17:06] VITALS: BP 184/85
== END 2022-12-26 17:08 | disposition home or self-care (01) ==
LOC: EDUNIT# 12:33 → ER 12:34
DX: I10 Essential (primary) hypertension (principal); M17.12 Unilateral primary osteoarthritis, left knee; R41.82 Altered mental status, unspecified; E66.9 Obesity, unspecified; Z68.25 Body mass index [BMI] 25.0-25.9, adult
CPT/HCPCS: 36415; 70450; 71045; 72125; 73562; 80053; 82947; 83735; 83880; 84439; 84443; 85025; 93005

== ENCOUNTER → 2023-02-10 | Outpatient (CLI) | payer MEDICARE ==
[~2023-02-10] MED LIST changes: -DICL100G13 TOP; +DICL100G60 TOP; -GABA-490 PO; +GABA-491 PO
== END ==
LOC: CARD 10:25
PROVIDERS: ATTEND Internal Medicine Cardiovascular Disease
DX: I11.9 Hypertensive heart disease without heart failure (principal); I35.1 Nonrheumatic aortic (valve) insufficiency
CPT/HCPCS: 93306